=== PATIENT | female | born 1935 | race Caucasian/White ===

== ENCOUNTER 2016-07-13 07:44 | Day surgery (SDC) | payer MEDICARE, OTHER ==
[~2016-07-13] VITALS: Ht 162.6 cm; Wt 86.4 kg
[~2016-07-13 07:44] MED LIST: CALC500T19 PO; CIPR500T4 PO; CYAN100017 PO; FOLI1 PO; FOSA70TA PO; FURO40TA PO; GABA100C4 PO; HYDR-3535 PO; LEVO50TA4 PO; METH50P SQ; METO25 PO; OMEP20TA39 PO; POTA20IN3 PO; PRAV20 PO; WARF-20 PO
[2016-07-13 07:57] VITALS: BP 146/86; PULSE 86; RESP 20; TEMP 98.1; O2SAT 98
[2016-07-13] MEDS ORDERED: MECL-62 PO ×2 (08:12→08:52)
[2016-07-13] MEDS ORDERED: POTA-163 PO ×2 (08:12→08:51)
[2016-07-13] MEDS ORDERED: CENTTAB8 PO (08:12)
[2016-07-13] MEDS ORDERED: LIDOCAINE 1%/EPINEPHrine 1:100,000 SOLN 20 ML VIAL ONE (08:24)
[2016-07-13 08:47] LABS: AUTOMATED NEUTROPHIL # 10.3 TH/MM3 (1.8-7.7); BASOPHIL % 0.1 % (0.0-2.0); HEMATOCRIT 32.3 % (35.0-46.0); LYMPHOCYTE # 0.8 TH/MM3 (1.0-4.8); MEAN CORPUSCULAR HEMOGLOBIN 32.9 PG (27.0-34.0); MEAN CORPUSCULAR HGB CONC 33.6 % (32.0-36.0); MONO % 3.6 % (0.0-8.0); NEUT % 89.3 % (16.0-70.0); PLATELET COUNT 95 TH/MM3 (150-450); RED BLOOD COUNT 3.29 MIL/MM3 (4.00-5.30); RED CELL DISTRIBUTION WIDTH 15.3 % (11.6-17.2); WHITE BLOOD COUNT 11.5 TH/MM3 (4.0-11.0)
[2016-07-13 08:49] LABS: HEMO FLAGS AUTO DIFF
[2016-07-13] MEDS ORDERED: METO25TA3 PO (08:51)
[2016-07-13] MEDS ORDERED: CALC1WAF PO (08:51)
[2016-07-13] MEDS ORDERED: FURO40TA PO (08:51)
[2016-07-13] MEDS ORDERED: COUM4TAB PO (08:51)
[2016-07-13] MEDS ORDERED: OMEP20TA PO (08:51)
[2016-07-13] MEDS ORDERED: LEVO50TA4 PO (08:51)
[2016-07-13] MEDS ORDERED: FOSA70TA PO (08:51)
[2016-07-13] MEDS ORDERED: GABA100C4 PO (08:51)
[2016-07-13] MEDS ORDERED: FOLI5CAP PO (08:51)
[2016-07-13] MEDS ORDERED: CYAN100017 PO (08:51)
[2016-07-13] MEDS ORDERED: METH1INJ12 SQ (08:51)
[2016-07-13] MEDS ORDERED: PRAV20TA2 PO (08:51)
[2016-07-13] MEDS ORDERED: CIPR-9 PO (08:52)
[2016-07-13] MEDS ORDERED: HYDR-3516 PO (08:52)
[2016-07-13 08:59] LABS: INTERNATIONAL NORMALIZED RATIO 1.1 RATIO; PROTHROMBIN TIME - PATIENT 11.9 SEC (9.8-11.6)
[2016-07-13] MEDS ORDERED: SODIUM CHLORIDE 5 ML FLUSH PRN IVF (09:00)
[2016-07-13] MEDS ORDERED: SODIUM CHLOR 0.9% 1000 ML IV SCH (09:00)
[2016-07-13] MEDS ORDERED: SODIUM CHLORIDE 5 ML FLUSH BID IVF SCH (09:00)
[2016-07-13 09:05] LABS: APTT (PATIENT) 24.5 SEC (24.3-30.1)
[2016-07-13 09:21] LABS: PLATELET ESTIMATE SMEAR LOW (NORMAL); PLATELET MORPHOLOGY NORMAL (NORMAL); SCAN/DIFF AUTO DIFF CONFIRMED
[2016-07-13] MEDS ORDERED: fentaNYL CITRATE 250 MCG/5 ML AMP ONE (09:29)
[2016-07-13] MEDS ORDERED: MIDAZOLAM HCL 5 MG/5 ML VIAL ONE (09:29)
[2016-07-13 10:15] VITALS: BP 145/76; PULSE 87; RESP 18; TEMP 98.4; O2SAT 97
[2016-07-13 10:30] VITALS: BP 145/74; PULSE 86; RESP 18; O2SAT 97
[2016-07-13 10:33] LABS: BONE MARROW PROCESSING COMPLETE; IRON STAIN DONE; JENNER GIEMSA STAIN DONE
[2016-07-13] MEDS ORDERED: oxyCODONE/ACETAMINOPHEN 5 MG/325 MG TAB PO PRN (10:45)
[2016-07-13 11:00] VITALS: BP 135/68; PULSE 78; RESP 18; O2SAT 97
[2016-07-13 11:30] VITALS: BP 132/64; PULSE 75; RESP 18; O2SAT 97
--- NOTE | 2016-07-13 11:37 | RADRPT ---
EXAM DATE/TIME: 07/13/2016 09:39 [facility] COMPARISON: No previous studies available for comparison. INDICATIONS : Thrombocytopenia SEDATION TIME: 30 minutes BIOPSY SITE: Right ilium MEDICATION(S): 1.) 2.5 mg midazolam (Versed) IV 2.) 150 mcg fentanyl (Sublimaze) IV DEVICE(S): 1.) 12 gauge On-Control needle MEDICAL HISTORY : Aneurysm, abdominal. Hypertension. Chronic obstructive pulmonary disease. SURGICAL HISTORY : Appendectomy. Cholecystectomy. Hysterectomy. ENCOUNTER: Initial ACUITY: 1 day PAIN SCORE: 0/10 LOCATION: flank A total of one core specimen(s) were obtained and sent to the laboratory for pathologic evaluation. PROCEDURE: 1. CT guided bone marrow biopsy. 2. Conscious sedation with continuous EKG and oximetry monitoring. 3. EKG and oximetry remained stable throughout the procedure. Prior to the procedure informed consent was obtained. Any appropriate prior imaging studies were rev iewed. The site was prepped in a sterile fashion. Full sterile technique was used, including cap, mask, tyler rile gloves and gown and a large sterile sheet. Hand hygiene and 2% chlorhexidine and/or betadine/al cohol prep was utilized per protocol for cutaneous antisepsis. The skin and subcutaneous tissues wer e infiltrated with local anesthetic solution. With CT guidance the previously identified target was localized. Biopsy was performed using the presc ribed needle as above. Following biopsy marrow aspiration was performed with repeat puncture. Adequa te hemostasis was obtained with compression at the puncture site. Follow-up CT scan reveals no hemorrhage. Conscious sedation was performed with the prescribed dosages and duration as above. The patient sophia ated the procedure well and there were no complications. EKG and oximetry remained stable throughout the procedure. The patient was sent to Radiology Outpatient Unit in stable condition. CONCLUSION: 1. Uncomplicated CT guided bone marrow aspirate. 2. Uncomplicated CT guided bone marrow biopsy. Tiburcio Maxwell MD on July 13, 2016 at 11:36 Board Certified Radiologist. This report was verified electronically.
[2016-07-13 12:00] VITALS: BP 138/80; PULSE 68; RESP 18; O2SAT 100
== END 2016-07-13 13:59 | disposition home or self-care (01) ==
LOC: HRIP 07:44 → HRAD 07:44 → EDSTATUS 08:00 → HRAD 13:59
PROVIDERS: ATTEND Internal Medicine Hematology & Oncology
DX: D69.6 Thrombocytopenia, unspecified (principal); D64.9 Anemia, unspecified; I10 Essential (primary) hypertension; J44.9 Chronic obstructive pulmonary disease, unspecified
CPT/HCPCS: 38221; 77012; 85025; 85097; 85610; 85730; 88184; 88185; 88237; 88264; 88280; 88305; 88311; 88313; 99152; C1830; G0364; J2250; J3010

== ENCOUNTER 2016-12-04 01:27 | Inpatient (IN) | payer MEDICARE, OTHER ==
[~2016-12-04] VITALS: Ht 170.2 cm; Wt 83.4 kg
[2016-12-04] VITALS (13 sets, daily range): BP systolic 99–143; BP diastolic 50–78; PULSE 63–81; RESP 16–20; TEMP 96.9–103.1; O2SAT 94–98
[~2016-12-04 01:27] MED LIST changes: +CALC1WAF PO; +CENTTAB8 PO; +CIPR-9 PO; +COUM4TAB PO; +FOLI5CAP PO; +HYDR-3516 PO; +MECL-62 PO; +METH1INJ12 SQ; +METO25TA3 PO; +OMEP20TA PO; +POTA-163 PO; +PRAV20TA2 PO
[2016-12-04] MEDS ORDERED: SODIUM CHLOR 0.9% 1000 ML INJ 1,000 ML IV ONE (01:45)
[2016-12-04 01:57] LABS: BASOPHIL % 0.1 % (0.0-2.0); EOSINOPHIL % 0.1 % (0.0-4.0); HEMATOCRIT 37.8 % (35.0-46.0); HEMO FLAGS DIFF FINAL; LYMPH % 4.7 % (9.0-44.0); LYMPHOCYTE # 0.7 TH/MM3 (1.0-4.8); MEAN CELL VOLUME 97.4 FL (80.0-100.0); MEAN CORPUSCULAR HGB CONC 34.9 % (32.0-36.0); MONO % 6.3 % (0.0-8.0); NEUT % 88.8 % (16.0-70.0); PLATELET COUNT 109 TH/MM3 (150-450); RED BLOOD COUNT 3.88 MIL/MM3 (4.00-5.30); RED CELL DISTRIBUTION WIDTH 14.2 % (11.6-17.2); WHITE BLOOD COUNT 15.7 TH/MM3 (4.0-11.0)
[2016-12-04] MEDS ORDERED: METH0.35 (02:00)
[2016-12-04] MEDS ORDERED: FOLI400T PO (02:00)
[2016-12-04] MEDS ORDERED: [UNRECOGNIZED DRUG - CODE] SL (02:00)
[2016-12-04] MEDS ORDERED: CALC600T4 PO (02:00)
[2016-12-04] MEDS ORDERED: FLUTI220I INH (02:00)
[2016-12-04] MEDS ORDERED: ALBU0.08 NEB (02:00)
[2016-12-04 02:04] LABS: BACTERIA, URINE OCC /hpf; BLOOD, URINE LARGE (NEG); GLUCOSE,URINE NEG (NEG); KETONE, URINE NEG (NEG); MUCUS URINE FEW /lpf (OCC); NITRITE,URINE NEG (NEG); URINE COLOR YELLOW (YELLW/STRAW)
[2016-12-04 02:05] LABS: COMMENT (UR) CATH-CULTURE IND; CULTURE IF INDICATED CATH CULTURE IND
--- NOTE | 2016-12-04 02:08 | RADRPT ---
EXAM DATE/TIME: 12/04/2016 01:53 [facility] COMPARISON: No previous studies available for comparison. INDICATIONS : Chest pain. MEDICAL HISTORY : None. SURGICAL HISTORY : None. ENCOUNTER: Initial ACUITY: 1 day PAIN SCORE: 0/10 LOCATION: Bilateral chest FINDINGS: The lungs are clear without infiltrate, nodule, or mass. There is no appreciable pleural effusion fo r technique. Heart and mediastinum are unremarkable. There is evidence for prior median sternotomy. There are atherosclerotic calcifications of the aorta due to chronic atherosclerotic disease. CONCLUSION: No acute cardiopulmonary disease. Sabino Kearney MD on December 04, 2016 at 2:06 Board Certified Radiologist. This report was verified electronically.
--- NOTE | 2016-12-04 02:14 | PD ---
HPI Chief Complaint: Fever Time Seen by Provider: 01:36 Travel History International Travel<30 days: No Contact w/Intl Traveler<30days: No Traveled to known affect area: No History of Present Illness HPI Patient 81-year-old female [facility] for evaluation of fever and altered mental status. Patient on arrival is fairly confused, per EMS she had fever in route and is only been confused for the past few hours after receiving [place] tell when she went to bed tonight. Initial saturations were 92%+. Further history is fairly limited by the patient's altered mental status. PFSH Past Medical History Hx Anticoagulant Therapy: Yes AAA: Yes Anemia: Yes Arthritis: Yes Asthma: Yes Atrial Fibrillation: Yes Autoimmune Disease: No Blood Disorders: No Anxiety: No Depression: No Heart Rhythm Problems: Yes Cancer: No Cardiovascular Problems: Yes (cad, valve replacement) Chemotherapy: No Congestive Heart Failure: Yes COPD: Yes Coronary Artery Disease: Yes Diabetes: No Diminished Hearing: Yes Endocrine: No Gastrointestinal Disorders: Yes (HX OF CDIFF) GERD: Yes Genitourinary: No Hepatitis: No Hiatal Hernia: Yes Hypertension: Yes Immune Disorder: Yes Implanted Vascular Access Dvce: No Musculoskeletal: Yes Neurologic: No Psychiatric: No Reproductive: No Respiratory: Yes (copd) Immunizations Current: Yes Radiation Therapy: No Thyroid Disease: No Tetanus Vaccination: Unknown Influenza Vaccination: Yes PNEUMOCCOCAL Vaccine (Year): 2006 Menopausal: Yes : 0 Ovarian Cysts: Yes Past Surgical History Abdominal Aneurysm Repair: Yes Abdominal Surgery: Yes (AAA, cholesectomy) Appendectomy: Yes Cardiac Surgery: Yes Cholecystectomy: Yes Coronary Artery Bypass Graft: Yes (X 5) Ear Surgery: No Endocrine Surgery: No Eye Surgery: Yes (BILATERAL CATARACT ) Genitourinary Surgery: No Gynecologic Surgery: Yes (HYSTERECTOMY ) Hysterectomy: Yes Joint Replacement: Yes (L KNEE SURGERY , BACK SURGERY ) Pacemaker: No Thoracic Surgery: Yes Other Surgery: Yes (NOSE ,HYSTERCTOMY, CHOLECYSTEC APENDECTOMY) Social History Alcohol Use: Yes (OCC) Tobacco Use: No (quit 19 years) Substance Use: No Allergies-Medications (Allergen,Severity, Reaction): Coded Allergies: Norvasc (Verified Allergy, Severe, redness "i look like hamburger meat", ) Penicillin (Verified Allergy, Severe, RASH / HIVES, 12/04/16) Spironolactone (Verified Allergy, Severe, hives, 12/04/16) HIVES/ITCHING Sulfa (Verified Allergy, Severe, SWELLING, 12/04/16) Reglan (Verified Allergy, Intermediate, 12/04/16) Erythromycin (Verified Allergy, Unknown, 12/04/16) Reported Meds & Prescriptions Reported Meds & Active Scripts Active Reported Rasuvo (Methotrexate (Antirheumatic)) 20 Mg/0.4 Ml Inj Folic Acid 400 Mcg Tab 1 Mg PO DAILY Flovent Hfa 12 GM Inh (Fluticasone Propionate) 220 Mcg/Act Inh 1 Puff INH BID Use daily at the same time. B-12 Dots (Cyanocobalamin) 500 Mcg Tab 500 Mcg SL DAILY Calcium Carbonate 1,500 Mg Tab 1,500 Mg PO BID 1,500 mg calcium carbonate (600 mg elemental calcium) Albuterol Neb (Albuterol Sulfate) 2.5 Mg/3 Ml Neb 2.5 Mg NEB ONCE Meclizine (Meclizine HCl) 25 Mg Tab 25 Mg PO QID PRN Gabapentin 100 Mg Cap 100 Mg PO TID Omeprazole 20 Mg Tab 20 Mg PO DAILY Metoprolol Tartrate 25 Mg Tab 25 Mg PO BID Levothyroxine (Levothyroxine Sodium) 50 Mcg Tab 50 Mcg PO DAILY Coumadin (Warfarin) 4 Mg Tab 4 Mg PO DAILY Pravastatin 20 Mg Tab 20 Mg PO HS Furosemide 40 Mg Tab 40 Mg PO BID Fosamax (Alendronate Sodium) 70 Mg Tab 70 Mg PO Q7D Potassium Chloride ER (Potassium Chloride) 20 Meq Tab 20 Meq PO TID Review of Systems Except as stated in HPI: all other systems reviewed are Neg Physical Exam Exam Limitations: Altered Mental Status Narrative GENERAL: Well-developed well-nourished, mild to confused in obvious distress. SKIN: No rash no wound no cellulitis hot to touch. HEAD: Atraumatic. Normocephalic. EYES: Pupils equal and round. No scleral icterus. No injection or drainage. ENT: No nasal bleeding or discharge. Mucous membranes pink and moist. TMs clear bilaterally, oropharynx clear and moist. NECK: Trachea midline. No JVD. CARDIOVASCULAR: Regular rate and rhythm. No murmur appreciated. RESPIRATORY: No accessory muscle use. Clear to auscultation. Breath sounds equal bilaterally. GASTROINTESTINAL: Abdomen soft, minimally tender in the right lower quadrant. No rebound no percussive tenderness., nondistended. Hepatic and splenic margins not palpable. MUSCULOSKELETAL: No obvious deformities. No clubbing. No cyanosis. No edema. NEUROLOGICAL: Awake and alert oriented to self and place only. When asked who the president of states was she began smelling nonsensical words. No obvious cranial nerve deficits. Motor grossly within normal limits. Normal speech. PSYCHIATRIC: Unable to assess. Data Data Last Documented VS Vital Signs Date Time Temp Pulse Resp B/P Pulse Ox O2 Delivery O2 Flow Rate FiO2 12/04/16 03:28 100.9 81 16 140/78 96 Room Air Orders Electrocardiogram (12/04/16 01:36) Complete Blood Count With Diff (12/04/16:36) Comprehensive Metabolic Panel (12/04/16:36) Beta Hcg (Quant/Titer) (12/04/16:36) Prothrombin Time / Inr (Pt) (12/04/16:36) Act Partial Throm Time (Ptt) (12/04/16:36) Lactic Acid Sepsis Protocol (12/04/16:36) Magnesium (Mg) (12/04/16:36) Phosphorus (Po4) (12/04/16 01:36) Lipase (12/04/16:36) Ckmb (Isoenzyme) Profile (12/04/16:36) Troponin I (12/04/16:36) Urinalysis - C+S If Indicated (12/04/16 01:36) Ua Includes Microscopic (12/04/16 01:36) Blood Culture (12/04/16 01:36) Chest, Single Ap (12/04/16:36) Blood Glucose (12/04/16 01:36) Ecg Monitoring (12/04/16 01:36) Iv Access Insert/Monitor (12/04/16:36) Oximetry (12/04/16:36) Oxygen Administration (12/04/16:36) Ct Abd/Pel W Iv Contrast(Rout) (12/04/16 01:36) Urinary Catheter Management TERE.Q8H (12/04/16 01:36) Sodium Chlor 0.9% 1000 Ml Inj (Ns 1000 M (12/04/16 01:45) Urine Culture (12/04/16 01:50) Ct Brain W/O Iv Contrast(Rout) (12/04/16 ) Iohexol 350 Inj (Omnipaque 350 Inj) (12/04/16 02:54) Vancomycin Inj (Vancomycin Inj) (12/04/16 03:15) Piperacil-Tazo 3.375 Gm Premix (Zosyn 3. (12/04/16 03:15) Acetaminophen (Tylenol) (12/04/16 03:15) Admit Order (Ed Use Only) (12/04/16 ) Labs Laboratory Tests Test 12/04/16 12/04/16 01:45 01:50 White Blood Count 15.7 TH/MM3 Red Blood Count 3.88 MIL/MM3 Hemoglobin 13.2 GM/DL Hematocrit 37.8 % Mean Corpuscular Volume 97.4 FL Mean Corpuscular Hemoglobin 34.0 PG Mean Corpuscular Hemoglobin 34.9 % Concent Red Cell Distribution Width 14.2 % Platelet Count 109 TH/MM3 Mean Platelet Volume 8.4 FL Neutrophils (%) (Auto) 88.8 % Lymphocytes (%) (Auto) 4.7 % Monocytes (%) (Auto) 6.3 % Eosinophils (%) (Auto) 0.1 % Basophils (%) (Auto) 0.1 % Neutrophils # (Auto) 14.0 TH/MM3 Lymphocytes # (Auto) 0.7 TH/MM3 Monocytes # (Auto) 1.0 TH/MM3 Eosinophils # (Auto) 0.0 TH/MM3 Basophils # (Auto) 0.0 TH/MM3 CBC Comment DIFF FINAL Differential Comment Prothrombin Time 36.5 SEC Prothromb Time International 3.1 RATIO Ratio Activated Partial 28.5 SEC Thromboplast Time Sodium Level 134 MEQ/L Potassium Level 4.3 MEQ/L Chloride Level 93 MEQ/L Carbon Dioxide Level 35.6 MEQ/L Anion Gap 5 MEQ/L Blood Urea Nitrogen 25 MG/DL Creatinine 0.85 MG/DL Estimat Glomerular Filtration 64 ML/MIN Rate Random Glucose 94 MG/DL Lactic Acid Level 2.0 mmol/L Calcium Level 8.3 MG/DL Phosphorus Level 1.8 MG/DL Magnesium Level 1.7 MG/DL Total Bilirubin 0.4 MG/DL Aspartate Amino Transf 71 U/L (AST/SGOT) Alanine Aminotransferase 59 U/L (ALT/SGPT) Alkaline Phosphatase 153 U/L Total Creatine Kinase 70 U/L Troponin I LESS THAN 0.02 NG/ML Total Protein 7.2 GM/DL Albumin 2.9 GM/DL Lipase 190 U/L Human Chorionic Gonadotropin, LESS THAN 1 Quant MIU/ML Urine Color YELLOW Urine Turbidity HAZY Urine pH 8.0 Urine Specific Hayes 1.015 Urine Protein 30 mg/dL Urine Glucose (UA) NEG mg/dL Urine Ketones NEG mg/dL Urine Occult Blood LARGE Urine Nitrite NEG Urine Bilirubin NEG Urine Urobilinogen LESS THAN 2.0 MG/DL Urine Leukocyte Esterase NEG Urine RBC /hpf Urine WBC 5 /hpf Urine Bacteria OCC /hpf Urine Mucus FEW /lpf Microscopic Urinalysis Comment CATH-CULTURE IND MDM Medical Decision Making Medical Screen Exam Complete: Yes Emergency Medical Condition: Yes Differential Diagnosis Sepsis, pneumonia, encephalopathy, acute abdomen, UTI, head injury, bowel obstruction Narrative Course A 1-year-old female roomed in the emergency department, initial findings with the patient is febrile after taking [place]. No obvious source of fever found on physical exam. Chest x-ray is negative, UA negative, abdomen sources not been excluded CT abdomen indicated and reveals no intra-abdominal pathology but does show a right lower lobe pneumonia. The patient was then started on antibiotics. Lactic acid was normal precluding the need for aggressive fluid resuscitation. Patient was started on vancomycin and Zosyn,'s then noticed on the patient's paperwork that she has an allergy to penicillin which is a rash. She will be monitored closely for this reaction. She's not had any rash in the initial postinfusion period. Patient was discussed with Dr. Mcclendon for admission who is agreeable. She remained hemodynamically stable while in the emergency department. Cephalopathy seems to be waxing and waning. There is no history of dementia [facility] paperwork from [facility]. Diagnosis Primary Impression: Sepsis Qualified Code: A41.9 - Sepsis, due to unspecified organism Additional Impressions: Pneumonia Qualified Code: J18.1 - Pneumonia of right lower lobe due to infectious organism Encephalopathy Admitting Information Admitting Physician Requests: Admit Condition: Stable David Llanes MD Dec 04, 2016 02:14
[2016-12-04 02:15] LABS: APTT (PATIENT) 28.5 SEC (24.3-30.1); INTERNATIONAL NORMALIZED RATIO 3.1 RATIO; PROTHROMBIN TIME - PATIENT 36.5 SEC (9.8-11.6)
[2016-12-04 02:28] LABS: ALKALINE PHOSPHATASE 153 U/L (45-117); ALT (GPT) 59 U/L (10-53); ANION GAP 5 MEQ/L (5-15); AST (GOT) 71 U/L (15-37); BETA HCG QUANT LESS THAN 1 MIU/ML (0-5); BICARBONATE 35.6 MEQ/L (21.0-32.0); BLOOD UREA NITROGEN 25 MG/DL (7-18); CHLORIDE 93 MEQ/L (98-107); GLOMERULAR FILTRATION RATE 64 ML/MIN (>89); MAGNESIUM 1.7 MG/DL (1.5-2.5); SODIUM (NA) 134 MEQ/L (136-145); TOTAL BILIRUBIN ADULT 0.4 MG/DL (0.2-1.0)
[2016-12-04 02:29] LABS: CREATINE KINASE 70 U/L (26-192); POTASSIUM 4.3 MEQ/L (3.5-5.1)
[2016-12-04] MEDS ORDERED: IOHEXOL 350 MG/ML 10 ML VIAL (for RAD DIAG) IV ONE (02:54)
--- NOTE | 2016-12-04 03:00 | RADRPT ---
EXAM DATE/TIME: 12/04/2016 02:50 [facility] COMPARISON: CT BRAIN W/O CONTRAST, November 05, 2015, 16:48. INDICATIONS : Altered mental status. RADIATION DOSE: 56.35 CTDIvol (mGy) MEDICAL HISTORY : Gastroesophageal reflux disease. Cardiovascular disease Chronic obstructive pulmonary disease.CAD. Hi atal Hernia. Hypertension. SURGICAL HISTORY : Abdominal aortic aneurysm repair. Cholecystectomy.Hysterectomy.CABG. ENCOUNTER: Initial ACUITY: 1 day PAIN SCALE: 0/10 LOCATION: cranial TECHNIQUE: Multiple contiguous axial images were obtained of the head. Using automated exposure control and adj ustment of the mA and/or kV according to patient size, radiation dose was kept as low as reasonably a chievable to obtain optimal diagnostic quality images. FINDINGS: There is no evidence for intracranial hemorrhage, mass effect, mass lesions, or edema. The visualize d bony structures appear intact. Moderate degree of brain atrophy is seen. Moderate periventricular white matter changes are seen nonspecific mostly consistent with chronic small vessel ischemic change s. There are no signs of acute infarction for technique. There is fluid within the right maxillary sinus. CONCLUSION: Chronic and small vessel ischemic changes without any evidence for acute hemorrhage or mass effect an d right maxillary sinusitis. . Sabino Kearney MD on December 04, 2016 at 2:58 Board Certified Radiologist. This report was verified electronically.
--- NOTE | 2016-12-04 03:09 | RADRPT ---
EXAM DATE/TIME: 12/04/2016 02:46 [facility] COMPARISON: CT ABDOMEN & PELVIS W CONTRAST, November 16, 2015, 1:06. INDICATIONS : Fever and elevated white count. IV CONTRAST: 95 cc Omnipaque 350 (iohexol) IV ORAL CONTRAST: No oral contrast ingested. RADIATION DOSE: 10.49 CTDIvol (mGy) MEDICAL HISTORY : Gastroesophageal reflux disease. Chronic obstructive pulmonary disease. Cardiov ascular diseaseCAD. Hypertension. Hiatal hernia. SURGICAL HISTORY : Hysterectomy. Cholecystectomy.Abdominal aortic aneurysm repair.Valve replacem ent. ENCOUNTER: Initial ACUITY: 1 day PAIN SCALE: 6/10 LOCATION: abdomen TECHNIQUE: Volumetric scanning of the abdomen and pelvis was performed. Using automated exposure control and adjustment of the mA and/or kV according to patient size, radiation dose was kept as low as reasonably achievable to obtain optimal diagnostic quality images. FINDINGS: CT Abdomen: The liver, spleen, pancreas, kidneys, adrenals are unremarkable. There is no evidence for any appreciable pathological adenopathy, free fluid, or bowel obstruction. There are atheroscleroti c calcifications of the aorta due to chronic atherosclerotic disease an aortobiiliac stent is in plac e with [place] AAA not changed. There is air space consolidation right lower lobe not present previous ly. CT pelvis: There is no evidence for mass, abscess formation, or any significant adenopathy within the pelvis. There are scattered diverticuli mainly in the sigmoid colon without definite signs of divert iculitis. CONCLUSION: Right lower lobe pneumonia not present previously. Sabino Kearney MD on December 04, 2016 at 3:04 Board Certified Radiologist. This report was verified electronically.
[2016-12-04] MEDS ORDERED: VANCOMYCIN INJ 1,000 MG in SODIUM CHLOR 0.9% 250 ML INJ 250 ML IV ONE (03:15)
[2016-12-04] MEDS ORDERED: ACETAMINOPHEN 325 MG TAB PO ONE (03:15)
[2016-12-04] MEDS ORDERED: PIPERACIL-TAZO 3.375 GM PREMIX 50 ML IV ONE (03:15)
[2016-12-04] MEDS ORDERED: ACETAMINOPHEN 325 MG TAB PO PRN (03:45)
[2016-12-04] MEDS ORDERED: LACTULOSE SYRUP 20 GM/30 ML CUP PO PRN (03:45)
[2016-12-04] MEDS ORDERED: Vancomycin Consult Pharmacy 1 EA OTHER SCH (03:45)
[2016-12-04] MEDS ORDERED: VANCOMYCIN INJ 1,000 MG in SODIUM CHLOR 0.9% 250 ML INJ 250 ML IV SCH (03:45)
[2016-12-04] MEDS ORDERED: SENNOSIDES 8.6 MG TAB PO PRN (03:45)
[2016-12-04] MEDS ORDERED: SODIUM CHLORIDE 0.9% FLUSH 10 ML FLUSH IV FLUSH PRN (03:45)
[2016-12-04] MEDS ORDERED: RESP: ALBUTEROL 2.5 MG/3 ML NEB (SCH) NEB (03:45)
[2016-12-04] MEDS ORDERED: MECLIZINE HCL 25 MG TAB PO PRN (03:45)
[2016-12-04] MEDS ORDERED: ALENDRONATE SODIUM 70 MG TAB PO SCH (03:45)
[2016-12-04] MEDS ORDERED: MAGNESIUM HYDROXIDE SUSP 30 ML CUP PO PRN (03:45)
[2016-12-04] MEDS ORDERED: BISACODYL 10 MG SUPP RECTAL PRN (03:45)
[2016-12-04] MEDS ORDERED: ONDANSETRON HCL 4 MG/2 ML VIAL IVP PRN (03:45)
--- NOTE | 2016-12-04 03:45 | HHI.HP ---
HPI Service [facility] Primary Care Physician No Primary Care Physician Admission Diagnosis Sepsis, PNA Diagnoses: Chief Complaint: brought from SNF due to fever and AMS Travel History International Travel<30 Days: No Contact w/Intl Traveler <30 Da: No Traveled to Known Affected Are: No Sepsis Criteria SIRS Criteria (2 or more): Temp > 100.9 or < 96.8, WBC > 04353, < 4000 or > 10 % bands Sepsis Criteria (SIRS+source): Infect source susp/known History of Present Illness Written by Janessa Tamez, acting as scribe for Dr. Aguirre on 12/04/16 at 03 :58. This note was transcribed by scribRich HIGGINS. I, Dr. Jenn Aguirre personally performed the history, physical exam, and medical decision making; and confirmed the accuracy of the information in the transcribed note. Authenticated by Dr. Jenn Aguirre on 12/04/16 at 03:58. This is an 81 year old female patient with a past medical history which includes encephalopathy, carpal tunnel syndrome, thrombocytopenia, A. fib on Coumadin with INR 3.1, asthma, coronary artery disease, CHF, aortic stenosis s/ p bovine value replacement, AAA s/p repair, CAD s/p CABG, C. diff, hypertension , hypothyroidism, rheumatoid arthritis, chronic pain syndrome and peripheral neuropathy. Patient present to the ER from a SNF for evaluation of fever and altered mental status. Patient on arrival is confused and unable to provide meaningful information. Patient evaluated with daughter in the room. Information gathered form patient, daughter and prior computerized chart. Patient only complaint at this time is feeling tired. Patient reports that she had been so fatigued at longterm facility if she was unable to get out of bed. Patient's daughter reports patient has not been herself for about a week and has had a, "mucous sounding," nonproductive cough for the past week. Patient also had nausea earlier in the week, but no vomiting Patient denies chest pain, SOB, vomiting, fevers chills diarrhea or constipation. Vital signs upon arrival include temp 103.1, HR 75, RR 18, BP 143/68, pulse oximetry on RA 98% Review of Systems ROS Limitations: Clinical Condition, Poor Historian Past Family Social History Past Medical History Gathered from review of prior medical records as patient is unable to provide encephalopathy, carpal tunnel syndrome, thrombocytopenia, A. fib on Coumadin with INR 3.1, asthma, coronary artery disease, CHF, aortic stenosis s/p bovine value replacement, AAA s/p repair, CAD s/p CABG, C. diff, hypertension, hypothyroidism, rheumatoid arthritis, chronic pain syndrome and peripheral neuropathy Past Surgical History Gathered from review of prior medical records as patient is unable to provide 1. Bovine Aortic valve replacement 2. Spinal fusion 3. CABG Reported Medications Rasuvo (Methotrexate (Antirheumatic)) 20 Mg/0.4 Ml Inj Folic Acid 400 Mcg Tab 1 Mg PO DAILY Flovent Hfa 12 GM Inh (Fluticasone Propionate) 220 Mcg/Act Inh 1 Puff INH BID Use daily at the same time. B-12 Dots (Cyanocobalamin) 500 Mcg Tab 500 Mcg SL DAILY Calcium Carbonate 1,500 Mg Tab 1,500 Mg PO BID 1,500 mg calcium carbonate (600 mg elemental calcium) Albuterol Neb (Albuterol Sulfate) 2.5 Mg/3 Ml Neb 2.5 Mg NEB ONCE Meclizine (Meclizine HCl) 25 Mg Tab 25 Mg PO QID PRN Gabapentin 100 Mg Cap 100 Mg PO TID Omeprazole 20 Mg Tab 20 Mg PO DAILY Metoprolol Tartrate 25 Mg Tab 25 Mg PO BID Levothyroxine (Levothyroxine Sodium) 50 Mcg Tab 50 Mcg PO DAILY Coumadin (Warfarin) 4 Mg Tab 4 Mg PO DAILY Pravastatin 20 Mg Tab 20 Mg PO HS Furosemide 40 Mg Tab 40 Mg PO BID Fosamax (Alendronate Sodium) 70 Mg Tab 70 Mg PO Q7D Potassium Chloride ER (Potassium Chloride) 20 Meq Tab 20 Meq PO TID Allergies: Coded Allergies: Norvasc (Verified Allergy, Severe, redness "i look like hamburger meat", ) Penicillin (Verified Allergy, Severe, RASH / HIVES, 12/04/16) Spironolactone (Verified Allergy, Severe, hives, 12/04/16) HIVES/ITCHING Sulfa (Verified Allergy, Severe, SWELLING, 12/04/16) Reglan (Verified Allergy, Intermediate, 12/04/16) Erythromycin (Verified Allergy, Unknown, 12/04/16) Active Ordered Medications Current Medications Medications (Trade) Dose Ordered Sig/Jair Route Start Time Stop Time Status Last Admin Vancomycin HCl 1000 mg/Sodium Chloride 250 ml @ 250 mls/hr ONCE ONCE IV 12/04/16 03:15 12/04/16 04:14 12/04/16 03:26 Piperacillin Sod/ Tazobactam Sod 50 ml @ 100 mls/hr ONCE ONCE IV 12/04/16 03:15 12/04/16 03:44 12/04/16 03:26 (NS 1000 ml Inj) 1,000 ml @ 100 mls/hr Q10H IV 12/04/16 03:32 (NS Flush) 2 ml UNSCH PRN IV FLUSH 12/04/16 03:45 UNV (NS Flush) 2 ml BID IV FLUSH 12/04/16 09:00 UNV (Tylenol) 650 mg Q4H PRN PO 12/04/16 03:45 UNV (Zofran Inj) 4 mg Q6H PRN IVP 12/04/16 03:45 UNV (Lovenox Inj) 40 mg Q24H SQ 12/04/16 03:45 UNV (Jess-Colace) 1 tab BID PO 12/04/16 09:00 UNV (Milk Of Magnesia Liq) 30 ml Q12H PRN PO 12/04/16 03:45 UNV (Senokot) 17.2 mg Q12H PRN PO 12/04/16 03:45 UNV (Dulcolax Supp) 10 mg DAILY PRN RECTAL 12/04/16 03:45 Lactulose 30 ml 30 ml DAILY PRN PO 12/04/16 03:45 Piperacillin Sod/ Tazobactam Sod 100 ml @ 200 mls/hr Q6H IV 12/04/16 03:45 UNV Pharmacy Profile Note 0 ml @ 0 mls/hr UNSCH OTHER 12/04/16 03:45 UNV (Vancomycin Inj/ NS 250 ml Inj) 250 ml @ 250 mls/hr Q12H IV 12/04/16 03:45 UNV Family History unable to obtain due to patient current mental status and not available from prior charting Social History Lives in an No report of ETOH use, tobacco use or illicit drug use Physical Exam Vital Signs Vital Signs Date Time Temp Pulse Resp B/P Pulse Ox O2 Delivery O2 Flow Rate FiO2 12/04/16 03:28 100.9 81 16 140/78 96 Room Air 12/04/16 01:48 16 96 Room Air 12/04/16 01:48 96 Room Air 12/04/16 01:33 16 96 Room Air 12/04/16 01:30 103.1 75 18 143/68 98 Physical Exam GENERAL: This is a well-nourished, well-developed elderly 81 year old female patient, confused SKIN: No rashes, ecchymoses or lesions. Cool and dry. general thinning of skin HEAD: Atraumatic. Normocephalic. No temporal or scalp tenderness. ENT: Oral mucosa with white patches present lower mucosa EYES: Extraocular motions intact. No scleral icterus. No injection or drainage. CARDIOVASCULAR: Regular rate and rhythm with murmur present RESPIRATORY: decreased breath sounds with scattered rales, rhonchi and expiratory wheezing through out GASTROINTESTINAL: Abdomen soft, non-tender, nondistended. No hepato-splenomegaly , or palpable masses. No guarding. MUSCULOSKELETAL: RLE 2+ pitting edema with calf tenderness, LLE 1+ pitting edema without tenderness NEUROLOGICAL: Awake and alert. confused. Motor and sensory grossly within normal limits. 4 out of 5 muscle strength in all muscle groups. Normal speech. Laboratory Laboratory Tests Test 12/04/16 12/04/16 01:45 01:50 White Blood Count 15.7 Red Blood Count 3.88 Hemoglobin 13.2 Hematocrit 37.8 Mean Corpuscular Volume 97.4 Mean Corpuscular Hemoglobin 34.0 Mean Corpuscular Hemoglobin 34.9 Concent Red Cell Distribution Width 14.2 Platelet Count 109 Mean Platelet Volume 8.4 Neutrophils (%) (Auto) 88.8 Lymphocytes (%) (Auto) 4.7 Monocytes (%) (Auto) 6.3 Eosinophils (%) (Auto) 0.1 Basophils (%) (Auto) 0.1 Neutrophils # (Auto) 14.0 Lymphocytes # (Auto) 0.7 Monocytes # (Auto) 1.0 Eosinophils # (Auto) 0.0 Basophils # (Auto) 0.0 CBC Comment DIFF FINAL Differential Comment Prothrombin Time 36.5 Prothromb Time International 3.1 Ratio Activated Partial 28.5 Thromboplast Time Sodium Level 134 Potassium Level 4.3 Chloride Level 93 Carbon Dioxide Level 35.6 Anion Gap 5 Blood Urea Nitrogen 25 Creatinine 0.85 Estimat Glomerular Filtration 64 Rate Random Glucose 94 Lactic Acid Level 2.0 Calcium Level 8.3 Phosphorus Level 1.8 Magnesium Level 1.7 Total Bilirubin 0.4 Aspartate Amino Transf 71 (AST/SGOT) Alanine Aminotransferase 59 (ALT/SGPT) Alkaline Phosphatase 153 Total Creatine Kinase 70 Troponin I LESS THAN 0.02 Total Protein 7.2 Albumin 2.9 Lipase 190 Human Chorionic Gonadotropin, LESS THAN 1 Quant Urine Color YELLOW Urine Turbidity HAZY Urine pH 8.0 Urine Specific [place] 1.015 Urine Protein 30 Urine Glucose (UA) NEG Urine Ketones NEG Urine Occult Blood LARGE Urine Nitrite NEG Urine Bilirubin NEG Urine Urobilinogen LESS THAN 2.0 Urine Leukocyte Esterase NEG Urine RBC Urine WBC 5 Urine Bacteria OCC Urine Mucus FEW Microscopic Urinalysis Comment CATH-CULTURE IND Date/Time Procedure Status Source Growth 12/04/16 01:50 Urine Culture Received Urine Catheterized Urine Pending 12/04/16 01:45 Aerobic Blood Culture Received Blood Peripheral Pending 12/04/16 01:45 Anaerobic Blood Culture Received Blood Peripheral Pending Result Diagram: 12/04/16 0145 12/04/16 0145 Imaging Last Impressions Chest X-Ray 12/04/16135 Signed Impressions: Service Date/Time: Sunday, December 04, 2016 01:53 - CONCLUSION: No acute cardiopulmonary disease. Sabino Kearney MD Abdomen/Pelvis CT 12/04/16135 Signed Impressions: Service Date/Time: Sunday, December 04, 2016 02:46 - CONCLUSION: Right lower lobe pneumonia not present previously. Sabino Kearney MD Head CT 12/04/16 0000 Signed Impressions: Service Date/Time: Sunday, December 04, 2016 02:50 - CONCLUSION: Chronic and small vessel ischemic changes without any evidence for acute hemorrhage or mass effect and right maxillary sinusitis. . Sabino Kearney MD Septic Shock Reassessment Heart: Murmur Lungs: Course, Diminished Skin: Warm, Dry Peripheral Pulses: Weak Right Dorsalis Pedis Weak Left Dorsalis Pedis Bounding Right Radial Bounding Left Radial Capillary Refill: <2 seconds Assessment and Plan Problem List: (1) Sepsis ICD Code: A41.9 Status: Acute (2) Pneumonia ICD Code: J18.9 Status: Acute (3) Encephalopathy ICD Code: G93.40 Status: Acute Assessment and Plan This is an 81 year old female patient with a past medical history which includes encephalopathy, carpal tunnel syndrome, thrombocytopenia, A. fib on Coumadin with INR 3.1, asthma, coronary artery disease, CHF, aortic stenosis s/ p value replacement, C. diff, hypertension, hypothyroidism, rheumatoid arthritis , chronic pain syndrome and peripheral neuropathy. Patient present to the ER from a SNF for evaluation of fever and altered mental status. Patient on arrival is confused and unable to provide meaningful information. Vital signs upon arrival include temp 103.1, HR 75, RR 18, BP 143/68, pulse oximetry on RA 98% AMS secondary to metabolic encephalopathy Sepsis on arrival (temp 103.1, WBC 15.7 source Healthcare associated PNA) Possible UTI- UA with protein high, large amount occult blood present, negative leukocyte esterase, urine bacteria present, culture pending Zosyn and Vancomycin given in ER Continue Zosyn and Vancomycin with pharmacy to dose s/p IV bolus in ER NS at 100ml/H Abdomen/pelvis CT reviewed by me and revealed Right lower lobe pneumonia not present previously blood cultures obtained and pending A Fib- rate controlled Continue Coumadin with pharmacy consult continue home medication metoprolol for rate control History of C- diff now on abx Lactobacillus BID watch for loose stools/diarrhea ulceration of oral mucosa Magic mouth wash RLE edema >L with calf pain US to r/o DVT pending Other chronic stable medical conditions include peripheral neuropathy, hyperlipidemia, CHF and hypothyroidism continue home medications as indicated DVT prophylaxis patient is on Coumadin with a therapeutic INR Discussed with ER MD, nursing and patient Physician Certification 2 Midnight Certification Type: Admission for Inpatient Services Order for Inpatient Services The services are ordered in accordance with Medicare regulations or non- Medicare payer requirements, as applicable. In the case of services not specified as inpatient-only, they are appropriately provided as inpatient services in accordance with the 2-midnight benchmark. Estimated LOS (days): 3 days is the estimated time the patient will need to remain in the hospital, assuming treatment plan goals are met and no additional complications. Post-Hospital Plan: SNF Problem Qualifiers (1) Sepsis: Qualified Code: A41.9 - Sepsis, due to unspecified organism (2) Pneumonia: Qualified Code: J18.1 - Pneumonia of right lower lobe due to infectious organism Janessa Tamez Dec 04, 2016 03:45 Jenn Aguirre MD Dec 04, 2016 09:37
[2016-12-04] MEDS ORDERED: ENOXAPARIN SODIUM 40 MG/0.4 ML SYRINGE SQ SCH (04:00)
[2016-12-04] MEDS: SODIUM CHLOR 0.9% 1000 ML INJ 1,000 ML IV SCH ×3 (04:03→23:59)
[2016-12-04] MEDS ORDERED: RESP: ALBUTEROL 2.5 MG/IPRATROPIUM 0.5 MG NEB (PRN) NEB (06:00)
[2016-12-04] MEDS: LEVOTHYROXINE SODIUM 50 MCG TAB PO SCH (06:12)
[2016-12-04] MEDS: METOPROLOL TARTRATE 25 MG TAB PO SCH ×2 (08:07→22:49)
[2016-12-04] MEDS: FLUTICASONE PROPIONATE 220 MCG/ACT 12 GM INHALER INH SCH ×2 (08:09→22:50)
[2016-12-04] MEDS: POTASSIUM CHLORIDE 20 MEQ CONTROLLED RELEASE TAB PO SCH ×3 (08:10→17:17)
[2016-12-04] MEDS: LACTOBACILLUS ACIDOPHILUS TAB PO SCH ×2 (08:10→22:48)
[2016-12-04] MEDS: PANTOPRAZOLE SOD 20 MG DELAYED RELEASE TAB PO SCH (08:10)
[2016-12-04] MEDS: GABAPENTIN 100 MG CAP PO SCH ×3 (08:10→17:17)
[2016-12-04] MEDS: FUROSEMIDE 40 MG TAB PO SCH ×2 (08:11→22:48)
[2016-12-04] MEDS: FOLIC ACID 1 MG TAB PO SCH (08:11)
[2016-12-04] MEDS: DOCUSATE SODIUM 50 MG/SENNA 8.6 MG TAB PO SCH ×2 (08:12→22:48)
[2016-12-04] MEDS: SODIUM CHLORIDE 0.9% FLUSH 10 ML FLUSH IV FLUSH SCH ×2 (08:13→22:47)
[2016-12-04] MEDS: CYANOCOBALAMIN 100 MCG TAB PO SCH (08:17)
[2016-12-04] MEDS: RESP: ALBUTEROL 2.5 MG/IPRATROPIUM 0.5 MG NEB (SCH) NEB ×4 (08:19→19:13)
[2016-12-04] MEDS: oxyCODONE/ACETAMINOPHEN 5 MG/325 MG TAB PO PRN (08:40)
--- NOTE | 2016-12-04 10:14 | RADRPT ---
EXAM DATE/TIME: 12/04/2016 08:24 [facility] COMPARISON: CT ABDOMEN & PELVIS W CONTRAST, December 04, 2016, 2:46. EXTERNAL COMPARISON : [facility], US LEG, BILATERAL VENOUS DOPPLER, July 11, 2012 INDICATIONS : Bilateral leg edema and pain. MEDICAL HISTORY : Aneurysm, abdominal. Congestive heart failure. Hernia, hiatal. Degenerative disc disease. Afib. CAD. Valvular heart disease. HTN. COPD. Asthma. GERD. Ovarian cysts. Rheumatoid arthritis. Pinched back n erve. Anemia. Thrombocytopenia. Cdiff. SURGICAL HISTORY : Abdominal aortic aneurysm repair.Cholecystectomy. Coronary artery stent.Cataract extraction. Heart va lve replaced. CABG. Hysterectomy. Left knee surgery. Back surgery. ENCOUNTER: Initial ACUITY: 3 days PAIN SCORE: 10/10 LOCATION: Bilateral leg. TECHNIQUE: Venous ultrasound of the left and right leg was performed from the inguinal ligament to the proximal calf. Real-time, color Doppler and spectral tracing, compression and augmentation techniques were us ed. FINDINGS: RIGHT LEG: There is normal compressibility of the deep venous system from the inguinal region to the proximal ca lf. No echogenic clot is seen in the lumen of the common femoral, femoral, popliteal, and posterior tibial veins. There is a normal response of the venous system to proximal and distal augmentation an d respiration. LEFT LEG: There is normal compressibility of the deep venous system from the inguinal region to the proximal ca lf. No echogenic clot is seen in the lumen of the common femoral, femoral, popliteal, and posterior tibial veins. There is a normal response of the venous system to proximal and distal augmentation an d respiration. CONCLUSION: There generalized edema. There is no deep venous thrombosis. Manuelito Tolentino MD FACR on December 04, 2016 at 10:10 Board Certified Radiologist. This report was verified electronically.
--- NOTE | 2016-12-04 11:45 | EKG ---
Date Performed: 12/04/2016 Time Performed: 01:40:42 PTAGE: 81 years EKG: ATRIAL FIBRILLATION Since previous tracing, no significant change noted ABNORMAL RHYTHM ECG PREVIOUS TRACING : 11/15/2015 22.15 DOCTOR: John Ramirez Interpretating Date/Time 12/04/2016 11:44:02
[2016-12-04] MEDS: PIPERACIL-TAZO 4.5 GM PREMIX 100 ML IV SCH ×3 (11:52→22:47)
[2016-12-04] MEDS ORDERED: WARFARIN SOD 4 MG TAB PO SCH (16:00)
[2016-12-04] MEDS: PRAVASTATIN SOD 20 MG TAB PO SCH (22:47)
[2016-12-04] MEDS ORDERED: VANCOMYCIN INJ 1,250 MG in SODIUM CHLOR 0.9% 250 ML INJ 250 ML IV SCH (23:00)
[2016-12-05] VITALS (7 sets, daily range): BP systolic 117–144; BP diastolic 57–76; PULSE 72–84; RESP 16–18; TEMP 96.8–99.9; O2SAT 93–96
[2016-12-05] MEDS: RESP: ALBUTEROL 2.5 MG/IPRATROPIUM 0.5 MG NEB (SCH) NEB ×6 (03:26→19:01)
[2016-12-05] MEDS: PIPERACIL-TAZO 4.5 GM PREMIX 100 ML IV SCH ×2 (04:32→11:43)
[2016-12-05 05:06] LABS: AUTOMATED NEUTROPHIL # 5.7 TH/MM3 (1.8-7.7); BASOPHIL # 0.1 TH/MM3 (0-0.2); BASOPHIL % 1.1 % (0.0-2.0); EOSINOPHIL % 0.4 % (0.0-4.0); HEMATOCRIT 36.6 % (35.0-46.0); HEMO FLAGS DIFF FINAL; LYMPH % 15.9 % (9.0-44.0); LYMPHOCYTE # 1.3 TH/MM3 (1.0-4.8); MEAN CELL VOLUME 98.9 FL (80.0-100.0); MEAN CORPUSCULAR HEMOGLOBIN 32.7 PG (27.0-34.0); MEAN CORPUSCULAR HGB CONC 33.1 % (32.0-36.0); MONO % 10.9 % (0.0-8.0); NEUT % 71.7 % (16.0-70.0); PLATELET COUNT 115 TH/MM3 (150-450); RED CELL DISTRIBUTION WIDTH 14.4 % (11.6-17.2); WHITE BLOOD COUNT 7.9 TH/MM3 (4.0-11.0)
[2016-12-05 05:19] LABS: INTERNATIONAL NORMALIZED RATIO 3.5 RATIO
[2016-12-05 05:30] LABS: BICARBONATE 29.4 MEQ/L (21.0-32.0); CALCIUM-PROTEIN CORRECTED 7.7 MG/DL (8.5-10.1); TOTAL BILIRUBIN ADULT 0.7 MG/DL (0.2-1.0)
[2016-12-05 05:36] LABS: POTASSIUM 2.9 MEQ/L (3.5-5.1)
[2016-12-05] MEDS: LEVOTHYROXINE SODIUM 50 MCG TAB PO SCH (06:23)
[2016-12-05] MEDS: POTASSIUM CHLOR 20 MEQ PREMIX 100 ML IV SCH ×2 (06:23→08:30)
[2016-12-05] MEDS: FUROSEMIDE 40 MG TAB PO SCH ×3 (10:08→21:34)
[2016-12-05] MEDS: LACTOBACILLUS ACIDOPHILUS TAB PO SCH ×2 (10:08→21:33)
[2016-12-05] MEDS: POTASSIUM CHLORIDE 20 MEQ CONTROLLED RELEASE TAB PO SCH ×3 (10:08→16:52)
[2016-12-05] MEDS: METOPROLOL TARTRATE 25 MG TAB PO SCH ×2 (10:08→21:38)
[2016-12-05] MEDS: GABAPENTIN 100 MG CAP PO SCH ×3 (10:09→16:52)
[2016-12-05] MEDS: DOCUSATE SODIUM 50 MG/SENNA 8.6 MG TAB PO SCH ×2 (10:09→21:00)
[2016-12-05] MEDS: CYANOCOBALAMIN 100 MCG TAB PO SCH (10:09)
[2016-12-05] MEDS: FOLIC ACID 1 MG TAB PO SCH (10:09)
[2016-12-05] MEDS: FLUTICASONE PROPIONATE 220 MCG/ACT 12 GM INHALER INH SCH ×2 (10:09→21:32)
[2016-12-05] MEDS: PANTOPRAZOLE SOD 20 MG DELAYED RELEASE TAB PO SCH (10:09)
[2016-12-05] MEDS: SODIUM CHLORIDE 0.9% FLUSH 10 ML FLUSH IV FLUSH SCH ×2 (10:10→21:00)
[2016-12-05] MEDS ORDERED: POTASSIUM CHLORIDE 20 MEQ CONTROLLED RELEASE TAB PO ONE (10:15)
[2016-12-05] MEDS: oxyCODONE/ACETAMINOPHEN 5 MG/325 MG TAB PO PRN ×2 (10:24→21:33)
--- NOTE | 2016-12-05 10:59 | HHI.FPPN ---
Subjective Remarks "i feel better" daughter at bedside and very angry, accusatory d/w RN Objective Vitals Vital Signs Date Time Temp Pulse Resp B/P Pulse Ox O2 Delivery O2 Flow Rate FiO2 12/05/16 08:00 98.3 83 16 141/76 96 12/05/16 07:22 96 21 12/05/16 00:00 96.8 77 18 117/57 93 12/04/16 20:00 99.1 78 19 119/63 98 12/04/16 19:14 96 21 12/04/16 15:52 98.3 68 17 111/53 95 12/04/16 12:00 97.4 63 20 117/57 95 I/O 12/04/16 12/04/16 12/04/16 12/05/16 12/05/16 12/05/16 07:00 15:00 23:00 07:00 15:00 23:00 Intake Total 209 ml 1579 ml 1182 ml 845 ml Output Total 300 ml 1200 ml 750 ml 2000 ml Balance -91 ml 379 ml 432 ml -1155 ml Intake Oral 60 ml 720 ml 360 ml 120 ml IV Total 149 ml 859 ml 822 ml 725 ml Output Urine Total 300 ml 1200 ml 750 ml 2000 ml # Voids 1 # Bowel Movements 0 0 0 4 Result Diagram: 12/05/1640912/05/16409 Objective Remarks GENERAL: SKIN: Warm and dry. HEAD: Atraumatic. Normocephalic. EYES: Pupils equal and round. No scleral icterus. No injection or drainage. ENT: No nasal bleeding or discharge. Mucous membranes pink and moist. NECK: Trachea midline. No JVD. CARDIOVASCULAR: Regular rate and rhythm. RESPIRATORY: No accessory muscle use. patchy ronchi, crackle at right base. Breath sounds equal bilaterally. GASTROINTESTINAL: Abdomen soft, non-tender, nondistended. Hepatic and splenic margins not palpable. MUSCULOSKELETAL: Extremities without clubbing, cyanosis, or edema. No obvious deformities. NEUROLOGICAL: Awake and alert. No obvious cranial nerve deficits. Motor grossly within normal limits. 1 out of 5 muscle strength in the arms and legs. Normal speech. PSYCHIATRIC: Appropriate mood and affect; insight and judgment normal. Medications and IVs Current Medications Medications (Trade) Dose Ordered Sig/Jair Route Start Time Stop Time Status Last Admin (NS 1000 ml Inj) 1,000 ml @ 100 mls/hr Q10H IV 12/04/16 03:32 12/04/16 23:59 (NS Flush) 2 ml UNSCH PRN IV FLUSH 12/04/16 03:45 (NS Flush) 2 ml BID IV FLUSH 12/04/16 09:00 12/05/16 10:10 (Tylenol) 650 mg Q4H PRN PO 12/04/16 03:45 (Zofran Inj) 4 mg Q6H PRN IVP 12/04/16 03:45 (Jess-Colace) 1 tab BID PO 12/04/16 09:00 12/05/16 10:09 (Milk Of Magnesia Liq) 30 ml Q12H PRN PO 12/04/16 03:45 (Senokot) 17.2 mg Q12H PRN PO 12/04/16 03:45 (Dulcolax Supp) 10 mg DAILY PRN RECTAL 12/04/16 03:45 Lactulose 30 ml 30 ml DAILY PRN PO 12/04/16 03:45 12/04/16 17:20 Piperacillin Sod/ Tazobactam Sod 100 ml @ 200 mls/hr Q6H IV 12/04/16 10:00 12/05/16 04:32 (Vancomycin Consult Pharmacy) 0 ml @ 0 mls/hr UNSCH OTHER 12/04/16 03:45 (Vitamin B12) 500 mcg DAILY PO 12/04/16 09:00 12/05/16 10:09 (Flovent Hfa 220 Mcg Inh) 1 puff BID INH 12/04/16 09:00 12/05/16 10:09 (Folate) 1 mg DAILY PO 12/04/16 09:00 12/05/16 10:09 (Lasix) 40 mg BID PO 12/04/16 09:00 12/05/16 10:08 (Neurontin) 100 mg TID PO 12/04/16 09:00 12/05/16 10:09 (Synthroid) 50 mcg DAILY@07 PO 12/04/16 07:00 12/05/16 06:23 (Antivert) 25 mg QID PRN PO 12/04/16 03:45 (Lopressor) 25 mg BID PO 12/04/16 09:00 12/05/16 10:08 (KCl) 20 meq TID PO 12/04/16 09:00 12/05/16 10:08 (Pravachol) 20 mg HS PO 12/04/16 21:00 12/04/16 22:47 (Coumadin) 4 mg DAILY@16 PO 12/04/16 16:00 (Protonix) 20 mg DAILY PO 12/04/16 09:00 12/05/16 10:09 (Magic Mouthwash Adult Liq) 10 ml QID SWISH-SWAL 12/05/16 11:00 (Lactinex) 1 tab Q12HR PO 12/04/16 09:00 12/05/16 10:08 Oxycodone/ Acetaminophen 1 tab 1 tab Q8HR PRN PO 12/04/16 08:15 12/05/16 10:24 (Vancomycin Inj/ NS 250 ml Inj) 262.5 ml @ 262.5 mls/ hr Q24H IV 12/04/16 23:00 12/04/16 23:58 Miscellaneous Information SPECIFIC LAB TO BE KENA... ONCE ONCE .XX 12/06/16 22:45 12/06/16 22:46 A/P Assessment and Plan AMS secondary to metabolic encephalopathy Sepsis on arrival (temp 103.1, WBC 15.7 source Healthcare associated PNA) Possible UTI- UA with protein high, large amount occult blood present, negative leukocyte esterase, urine bacteria present, culture pending Zosyn and Vancomycin given in ER Continue Zosyn and Vancomycin with pharmacy to dose. ivf blood cultures obtained and pending hypokalemia: replace K A Fib- rate controlled Continue Coumadin with pharmacy consult continue home medication metoprolol for rate control History of C- diff now on abx Lactobacillus BID watch for loose stools/diarrhea ulceration of oral mucosa Magic mouth wash RLE edema >L with calf pain US to r/o DVT - Other chronic stable medical conditions include peripheral neuropathy, hyperlipidemia, CHF and hypothyroidism continue home medications as indicated DVT prophylaxis patient is on Coumadin with a therapeutic INR Problem List: (1) Pneumonia Status: Acute (2) Sepsis Status: Acute (3) Encephalopathy Status: Acute (4) History of Clostridium difficile colitis Status: Chronic (5) Physical deconditioning Status: Chronic (6) UTI (lower urinary tract infection) Status: Acute (7) GERD (gastroesophageal reflux disease) Status: Chronic (8) CHF (congestive heart failure) Status: Chronic (9) Atrial fibrillation Status: Chronic (10) COPD (chronic obstructive pulmonary disease) Status: Chronic (11) Rheumatoid arthritis Status: Chronic (12) Hypertension Status: Chronic (13) Aortic aneurysm Status: Resolved (14) Lumbar spondylosis Status: Acute (15) Obesity Status: Acute (16) Hyperlipidemia Status: Chronic (17) Osteoarthritis Status: Chronic Problem Qualifiers (1) Pneumonia: Qualified Code: J18.1 - Pneumonia of right lower lobe due to infectious organism (2) Sepsis: Qualified Code: A41.9 - Sepsis, due to unspecified organism Arpit Archer MD Dec 05, 2016 10:59
[2016-12-05] MEDS: SODIUM CHLOR 0.9% 1000 ML INJ 1,000 ML IV SCH ×2 (11:43→19:32)
[2016-12-05] MEDS: NYSTAT/DIPHENHY/LIDO MOUTHWASH (Adult) 120ML SWISH-SWAL SCH ×2 (11:43→13:00)
--- NOTE | 2016-12-05 13:36 | PD.CONS ---
History of Present Illness Service Infectious disease Consult Requested By Dr Alon Archer Reason for Consult Evaluate patient with fever, pneumonia, history of C. difficile Primary Care Physician No Primary Care Physician Diagnoses: History of Present Illness Patient seen and examined. Records reviewed. Patient is an 81-year-old female, came [facility], brought into the hospital for evaluation of fever and confusion. She had a temperature of 103, and her WBC was elevated. Patient since admission has had improvement in her mental status. He stated that she's been having cough but really could not tell me how long it's been present. She is to bring up some yellowish phlegm, and that has improved. She denies any swallowing difficulty, sore throat, or any nausea or vomiting. Patient apparently has been constipated in the prison, and she was given multiple medications to make her have a bowel movement. Last night she had 3 bowel movements, and today she has had one. She denies any abdominal pain. Patient denies any dysuria, and she has occasional stress incontinence. Her temperature in the ED was 103. She's been afebrile. Her mental status according to the family is almost close to baseline. She still has a very moist cough. Her urinalysis is unremarkable. She had a CT of the abdomen and pelvis which did not show any intra-abdominal pathology, but it did show a right base infiltrate. Infectious disease consultation has been requested to evaluate the patient, with possible sepsis, fever, pneumonia.. Review of Systems Constitutional: COMPLAINS OF: Fever, Chills, DENIES: Change in appetite Eyes: DENIES: Eye pain Ears, nose, mouth, throat: DENIES: Nasal discharge, Oral lesions, Throat pain, Ear Pain, Running Nose Respiratory: COMPLAINS OF: Cough, Sputum production, DENIES: Hemoptysis, Shortness of breath Cardiovascular: DENIES: Chest pain, Palpitations, Syncope Gastrointestinal: COMPLAINS OF: Constipation, DENIES: Abdominal pain, Nausea, Vomiting, Difficulty Swallowing Genitourinary: COMPLAINS OF: Urinary incontinence, DENIES: Dysuria Musculoskeletal: COMPLAINS OF: Stiffness Integumentary: DENIES: Rash Neurologic: DENIES: Headache Psychiatric: COMPLAINS OF: Confusion Past Family Social History Allergies: Coded Allergies: Norvasc (Verified Allergy, Severe, redness "i look like hamburger meat", ) Penicillin (Verified Allergy, Severe, RASH / HIVES, 12/04/16) Spironolactone (Verified Allergy, Severe, hives, 12/04/16) HIVES/ITCHING Sulfa (Verified Allergy, Severe, SWELLING, 12/04/16) Reglan (Verified Allergy, Intermediate, 12/04/16) Erythromycin (Verified Allergy, Unknown, 12/04/16) Past Medical History Encephalopathy Carpal tunnel syndrome A. fib on Coumadin with INR 3.1 Asthma Coronary artery disease CHF Aortic stenosis s/p bovine value replacement C. diff Hypertension Hypothyroidism Rheumatoid arthritis Chronic pain syndrome Peripheral neuropathy Past Surgical History AAA s/p repair CAD s/p CABG Bovine Aortic valve replacement Spinal fusion Active Ordered Medications Tylenol Albuterol Dulcolax Vitamin B12 Flovent Loya acid Lasix Neurontin Lactinex Lactulose Synthroid MOM Meclizine Lopressor Zofran Percocet Protonix Zosyn Potassium Pravachol Jess-Colace Senokot Vancomycin Social History , resides in the prison Ex-smoker quit 40 years ago Occasional alcohol use No illicit drugs Physical Exam Vital Signs Vital Signs Date Time Temp Pulse Resp B/P Pulse Ox O2 Delivery O2 Flow Rate FiO2 12/05/16 12:00 99.9 72 16 144/65 96 12/05/16 08:00 98.3 83 16 141/76 96 12/05/16 07:22 96 21 12/05/16 00:00 96.8 77 18 117/57 93 12/04/16 20:00 99.1 78 19 119/63 98 12/04/16 19:14 96 21 12/04/16 15:52 98.3 68 17 111/53 95 Physical Exam GENERAL: Patient is a well-nourished, well-developed CF, awake and alert, not in respiratory distress. Has a moist weak cough SKIN: Warm and dry. No generalized rash, no ecchymoses and no evidence of embolic lesions. HEAD: Atraumatic. Normocephalic. No temporal wasting, or tenderness. EYES: [place] conjunctiva. No petechia or hemorrhage. Pupils equal, round and reactive to light. Extraocular movements full and intact. No scleral icterus. No injection or drainage. EARS, NOSE AND THROAT: Nose without bleeding or purulent nasal discharge. No sinus tenderness. Mucous membranes pink and moist. No oral lesions noted. No exudate. No oral thrush. Edentulous NECK: Trachea midline. Supple and not tender, no meningeal signs CARDIOVASCULAR: Regular rate and rhythm. No murmurs, rubs or gallops heard. Scar C/W surgery RESPIRATORY: Clear to auscultation. Breath sounds equal bilaterally. No rales , wheezing or rhonchi. Decreased BS at bases ABDOMEN: Soft, nondistended, bowel sounds present and normoactive, has diffuse abdominal tenderness. Has mild guarding, but no rebound. No organomegaly. EXTREMITIES: No clubbing, cyanosis, or edema. No calf tenderness. Well perfused and warm. NEUROLOGICAL: Awake and alert. Cranial nerves grossly intact. Motor grossly within normal limits. PSYCHIATRIC: Normal affect, calm and cooperative. LINE: No evidence of infection : Loya cath in place, urine looks clear Laboratory Laboratory Tests Test 12/05/16 04:10 White Blood Count 7.9 Red Blood Count 3.70 Hemoglobin 12.1 Hematocrit 36.6 Mean Corpuscular Volume 98.9 Mean Corpuscular Hemoglobin 32.7 Mean Corpuscular Hemoglobin 33.1 Concent Red Cell Distribution Width 14.4 Platelet Count 115 Mean Platelet Volume 7.9 Neutrophils (%) (Auto) 71.7 Lymphocytes (%) (Auto) 15.9 Monocytes (%) (Auto) 10.9 Eosinophils (%) (Auto) 0.4 Basophils (%) (Auto) 1.1 Neutrophils # (Auto) 5.7 Lymphocytes # (Auto) 1.3 Monocytes # (Auto) 0.9 Eosinophils # (Auto) 0.0 Basophils # (Auto) 0.1 CBC Comment DIFF FINAL Differential Comment Prothrombin Time 41.0 Prothromb Time International 3.5 Ratio Sodium Level 139 Potassium Level 2.9 Chloride Level 100 Carbon Dioxide Level 29.4 Anion Gap 10 Blood Urea Nitrogen 13 Creatinine 0.68 Estimat Glomerular Filtration 83 Rate Random Glucose 86 Calcium Level 7.3 Protein Corrected Calcium 7.7 Total Bilirubin 0.7 Aspartate Amino Transf 44 (AST/SGOT) Alanine Aminotransferase 46 (ALT/SGPT) Alkaline Phosphatase 119 Total Protein 6.3 Albumin 2.4 Date/Time Procedure Status Source Growth 12/04/16 01:50 Urine Culture - Final Complete Urine Catheterized Urine NO GROWTH IN 48 HOURS. 12/04/16 01:45 Aerobic Blood Culture - Preliminary Resulted Blood Peripheral NO GROWTH IN 1 DAY 12/04/16 01:45 Anaerobic Blood Culture - Preliminary Resulted Blood Peripheral NO GROWTH IN 1 DAY Result Diagram: 12/05/160 12/05/16 0410 Imaging RADIOLOGY STUDIES/FILMS REVIEWED Chest X-Ray 12/04/16135 Signed Impressions: Service Date/Time: Sunday, December 04, 2016 01:53 - CONCLUSION: No acute cardiopulmonary disease. Sabino Kearney MD Abdomen/Pelvis CT 12/04/16135 Signed Impressions: Service Date/Time: Sunday, December 04, 2016 02:46 - CONCLUSION: Right lower lobe pneumonia not present previously. Sabino Kearney MD Lower Extremity Ultrasound 12/04/16 0000 Signed Impressions: Service Date/Time: Sunday, December 04, 2016 08:24 - CONCLUSION: There generalized edema. There is no deep venous thrombosis. Manuelito Tolentino MD FACR Head CT 12/04/16 0000 Signed Impressions: Service Date/Time: Sunday, December 04, 2016 02:50 - CONCLUSION: Chronic and small vessel ischemic changes without any evidence for acute hemorrhage or mass effect and right maxillary sinusitis. . Sabino Kearney MD Assessment and Plan Assessment and Plan IMPRESSION Sepsis on admission, likely due to HCAP Abdominal tenderness on exam, CT negative - has had diarrhea since yesterday, though constipated in the NH and received a lot of laxatives Previous Hx C diff Leukocytosis, resolved Fever, improving Encephalopathy, due to sepsis, better RECOMMENDATION Stop Zosyn - gives Hx allergy, maybe delayed onset Use IV Cefepime for GNR coverage Zyvox for GPC coverage Stop Vancomycin Agree with lactinex, monitor stool - if diarrhea continues, check C diff - will have low threshold to start Flagyl, given Hx C diff in the past Check urine for Legionella and pneumococcal antigen Send sputum for Gram stain and culture Repeat chest x-ray tomorrow to reevaluate right base infiltrate seen on CT, but not on admission chest x-ray Follow temps Follow cultures and adjust antibiotics Monitor progress I will determine course of antibiotic depending on her progress, and results of the workup Will follow along with you. Thank you for this consultation Discussed Condition With D/W María Irving MD Dec 05, 2016 13:36
[2016-12-05] MEDS: LINEZOLID 600 MG TAB PO SCH ×2 (14:09→21:34)
[2016-12-05] MEDS: CEFEPIME INJ 1,000 MG in SODIUM CHLORIDE 0.9% INJ 100 ML IV SCH (14:09)
--- NOTE | 2016-12-05 14:30 | RADRPT ---
EXAM DATE/TIME: 12/05/2016 13:43 [facility] COMPARISON: CHEST SINGLE AP, December 04, 2016, 1:53. INDICATIONS : Cough. MEDICAL HISTORY : Cardiovascular disease. Chronic obstructive pulmonary disease. Hypertension. hiatal hernia SURGICAL HISTORY : CABG. ENCOUNTER: Initial ACUITY: 1 day PAIN SCORE: 0/10 LOCATION: Bilateral chest FINDINGS: A single view of the chest demonstrates the lungs to be symmetrically aerated without evidence of mas s, infiltrate or effusion. Post surgical changes from CABG are noted. The cardiomediastinal contours are otherwise unremarkable. Bone cement is identified in the upper lumbar spine. Osseous structures are intact. CONCLUSION: No evidence of acute cardiopulmonary process. Status post CABG. Status post vertebral body cement augmentation in the upper lumbar spine. Jefry Snyder MD on December 05, 2016 at 14:26 Board Certified Radiologist. This report was verified electronically.
[2016-12-05] MEDS: PRAVASTATIN SOD 20 MG TAB PO SCH (21:33)
[2016-12-06] VITALS (9 sets, daily range): BP systolic 132–180; BP diastolic 58–76; PULSE 72–86; RESP 18–20; TEMP 96.9–99.5; O2SAT 94–100
[2016-12-06] MEDS: RESP: ALBUTEROL 2.5 MG/IPRATROPIUM 0.5 MG NEB (SCH) NEB ×6 (00:13→20:07)
[2016-12-06] MEDS: CEFEPIME INJ 1,000 MG in SODIUM CHLORIDE 0.9% INJ 100 ML IV SCH ×2 (02:14→12:31)
[2016-12-06] MEDS: SODIUM CHLOR 0.9% 1000 ML INJ 1,000 ML IV SCH (05:32)
[2016-12-06] MEDS: LEVOTHYROXINE SODIUM 50 MCG TAB PO SCH (05:35)
[2016-12-06 06:21] LABS: BASOPHIL % 0.4 % (0.0-2.0); EOSINOPHIL # 0.1 TH/MM3 (0-0.4); EOSINOPHIL % 1.5 % (0.0-4.0); HEMATOCRIT 36.9 % (35.0-46.0); HEMO FLAGS DIFF FINAL; LYMPHOCYTE # 1.4 TH/MM3 (1.0-4.8); MEAN CELL VOLUME 98.4 FL (80.0-100.0); MEAN CORPUSCULAR HEMOGLOBIN 33.5 PG (27.0-34.0); MONO % 11.3 % (0.0-8.0); NEUT % 67.8 % (16.0-70.0); PLATELET COUNT 125 TH/MM3 (150-450); RED BLOOD COUNT 3.75 MIL/MM3 (4.00-5.30); RED CELL DISTRIBUTION WIDTH 14.6 % (11.6-17.2); WHITE BLOOD COUNT 7.3 TH/MM3 (4.0-11.0)
[2016-12-06 06:28] LABS: INTERNATIONAL NORMALIZED RATIO 2.6 RATIO; PROTHROMBIN TIME - PATIENT 30.5 SEC (9.8-11.6)
[2016-12-06 06:52] LABS: BICARBONATE 23.9 MEQ/L (21.0-32.0); POTASSIUM 3.5 MEQ/L (3.5-5.1)
[2016-12-06 07:13] LABS: CALCIUM-PROTEIN CORRECTED 7.9 MG/DL (8.5-10.1)
[2016-12-06] MEDS: FLUTICASONE PROPIONATE 220 MCG/ACT 12 GM INHALER INH SCH ×2 (07:59→19:42)
[2016-12-06] MEDS: LACTOBACILLUS ACIDOPHILUS TAB PO SCH ×2 (08:00→19:43)
[2016-12-06] MEDS: CYANOCOBALAMIN 100 MCG TAB PO SCH (08:00)
[2016-12-06] MEDS: DOCUSATE SODIUM 50 MG/SENNA 8.6 MG TAB PO SCH ×2 (08:00→19:43)
[2016-12-06] MEDS: FOLIC ACID 1 MG TAB PO SCH (08:00)
[2016-12-06] MEDS: POTASSIUM CHLORIDE 20 MEQ CONTROLLED RELEASE TAB PO SCH ×3 (08:00→16:06)
[2016-12-06] MEDS: METOPROLOL TARTRATE 25 MG TAB PO SCH ×2 (08:00→19:43)
[2016-12-06] MEDS: SODIUM CHLORIDE 0.9% FLUSH 10 ML FLUSH IV FLUSH SCH ×2 (08:00→19:43)
[2016-12-06] MEDS: PANTOPRAZOLE SOD 20 MG DELAYED RELEASE TAB PO SCH (08:01)
[2016-12-06] MEDS: GABAPENTIN 100 MG CAP PO SCH ×3 (08:01→16:06)
[2016-12-06] MEDS: FUROSEMIDE 40 MG TAB PO SCH ×2 (08:01→19:43)
[2016-12-06] MEDS: LINEZOLID 600 MG TAB PO SCH (08:01)
--- NOTE | 2016-12-06 09:50 | HHI.FPPN ---
Subjective Remarks "MUCH BETTER" C/O LEG EDEMA SON AT [facility] D/W RN Objective Vitals Vital Signs Date Time Temp Pulse Resp B/P Pulse Ox O2 Delivery O2 Flow Rate FiO2 12/06/16 08:00 98.4 86 19 180/76 100 12/06/16 07:50 96 12/06/16 04:13 98 21 12/06/16 00:20 98.8 74 20 132/58 95 12/06/16 00:16 96 21 12/05/16 20:43 97.9 84 16 138/70 95 12/05/16 16:00 96.9 78 16 125/64 95 12/05/16 15:16 93 21 12/05/16 12:00 99.9 72 16 144/65 96 I/O 12/05/16 12/05/16 12/05/16 12/06/16 12/06/16 12/06/16 07:00 15:00 23:00 07:00 15:00 23:00 Intake Total 845 ml 495 ml 541 ml 937 ml 120 ml Output Total 2000 ml 500 ml 300 ml Balance -1155 ml -5 ml 241 ml 937 ml 120 ml Intake Oral 120 ml 120 ml 120 ml IV Total 725 ml 375 ml 541 ml 937 ml Output Urine Total 2000 ml 500 ml 300 ml # Voids 1 # Bowel Movements 4 1 Result Diagram: 12/06/1652212/06/16522 Objective Remarks GENERAL: SKIN: Warm and dry. HEAD: Atraumatic. Normocephalic. EYES: Pupils equal and round. No scleral icterus. No injection or drainage. ENT: No nasal bleeding or discharge. Mucous membranes pink and moist. NECK: Trachea midline. No JVD. CARDIOVASCULAR: Regular rate and rhythm. RESPIRATORY: No accessory muscle use. Breath sounds equal bilaterally. Mild patchy ronchi, no crackles or consolidation GASTROINTESTINAL: Abdomen soft, non-tender, nondistended. Hepatic and splenic margins not palpable. MUSCULOSKELETAL: Extremities without clubbing, cyanosis, or edema. No obvious deformities. NEUROLOGICAL: Awake and alert. No obvious cranial nerve deficits. Motor grossly within normal limits. 2 out of 5 muscle strength in the arms and legs. Normal speech. PSYCHIATRIC: Appropriate mood and affect; insight and judgment normal. A/P Assessment and Plan AMS secondary to metabolic encephalopathy Sepsis on arrival (temp 103.1, WBC 15.7 source Healthcare associated PNA) Healthcare associated PNA No UTI- UA with protein high, large amount occult blood present, negative leukocyte esterase, urine bacteria present, culture pending Zosyn and Vancomycin given in ER hypokalemia: replace K A Fib- rate controlled Continue Coumadin with pharmacy consult continue home medication metoprolol for rate control History of C- diff now on abx Lactobacillus BID watch for loose stools/diarrhea ulceration of oral mucosa Magic mouth wash RLE edema >L with calf pain US - Hypocalcemia: replace Ca peripheral neuropathy, hyperlipidemia, CHF hypothyroidism DVT prophylaxis patient is on Coumadin with a therapeutic INR Lower IVF's DC ramirez today. P.T. ordered. Dispo: back to [facility] Problem List: (1) Pneumonia Status: Acute (2) Sepsis Status: Acute (3) Encephalopathy Status: Acute (4) History of Clostridium difficile colitis Status: Chronic (5) Physical deconditioning Status: Chronic (6) UTI (lower urinary tract infection) Status: Acute (7) GERD (gastroesophageal reflux disease) Status: Chronic (8) CHF (congestive heart failure) Status: Chronic (9) Atrial fibrillation Status: Chronic (10) COPD (chronic obstructive pulmonary disease) Status: Chronic (11) Rheumatoid arthritis Status: Chronic (12) Hypertension Status: Chronic (13) Aortic aneurysm Status: Resolved (14) Lumbar spondylosis Status: Acute (15) Obesity Status: Acute (16) Hyperlipidemia Status: Chronic (17) Osteoarthritis Status: Chronic Problem Qualifiers (1) Pneumonia: Qualified Code: J18.1 - Pneumonia of right lower lobe due to infectious organism (2) Sepsis: Qualified Code: A41.9 - Sepsis, due to unspecified organism Arpit Archer MD Dec 06, 2016 09:50
[2016-12-06] MEDS: CALCIUM CARBONATE 1.25 GM (CA 500 MG) TAB PO SCH ×2 (11:02→19:43)
--- NOTE | 2016-12-06 12:50 | HHI.IDPN ---
Subjective Subjective Remarks Notes reviewed No further fever No diarrhea Cough is stable Chest x-ray repeat no infiltrate WBC down to normal Blood cultures negative CT A/P with RLL infiltrate Antibiotics Cefepime Zyvox Lines PIV Past Medical History Encephalopathy Carpal tunnel syndrome A. fib on Coumadin with INR 3.1 Asthma Coronary artery disease CHF Aortic stenosis s/p bovine value replacement C. diff Hypertension Hypothyroidism Rheumatoid arthritis Chronic pain syndrome Peripheral neuropathy Past Surgical History AAA s/p repair CAD s/p CABG Bovine Aortic valve replacement Spinal fusion Allergies: Coded Allergies: Norvasc (Verified Allergy, Severe, redness "i look like hamburger meat", ) Penicillin (Verified Allergy, Severe, RASH / HIVES, 12/04/16) Spironolactone (Verified Allergy, Severe, hives, 12/04/16) HIVES/ITCHING Sulfa (Verified Allergy, Severe, SWELLING, 12/04/16) Reglan (Verified Allergy, Intermediate, 12/04/16) Erythromycin (Verified Allergy, Unknown, 12/04/16) Objective . Vital Signs Date Time Temp Pulse Resp B/P Pulse Ox O2 Delivery O2 Flow Rate FiO2 12/06/16 08:00 98.4 86 19 180/76 100 12/06/16 07:50 96 12/06/16 04:13 98 21 12/06/16 00:20 98.8 74 20 132/58 95 12/06/16 00:16 96 21 12/05/16 20:43 97.9 84 16 138/70 95 12/05/16 16:00 96.9 78 16 125/64 95 12/05/16 15:16 93 21 12/05/16 12/05/16 12/06/16 15:00 23:00 07:00 Intake Total 495 ml 541 ml 937 ml Output Total 500 ml 300 ml Balance -5 ml 241 ml 937 ml Intake Oral 120 ml IV Total 375 ml 541 ml 937 ml Output Urine Total 500 ml 300 ml # Bowel Movements 1 . Laboratory Tests Test 12/05/16 12/06/16 04:10 05:23 White Blood Count 7.9 TH/MM3 7.3 TH/MM3 Red Blood Count 3.70 MIL/MM3 3.75 MIL/MM3 Hemoglobin 12.1 GM/DL 12.6 GM/DL Hematocrit 36.6 % 36.9 % Mean Corpuscular Volume 98.9 FL 98.4 FL Mean Corpuscular Hemoglobin 32.7 PG 33.5 PG Mean Corpuscular Hemoglobin 33.1 % 34.0 % Concent Red Cell Distribution Width 14.4 % 14.6 % Platelet Count 115 TH/MM3 125 TH/MM3 Mean Platelet Volume 7.9 FL 7.6 FL Neutrophils (%) (Auto) 71.7 % 67.8 % Lymphocytes (%) (Auto) 15.9 % 19.0 % Monocytes (%) (Auto) 10.9 % 11.3 % Eosinophils (%) (Auto) 0.4 % 1.5 % Basophils (%) (Auto) 1.1 % 0.4 % Neutrophils # (Auto) 5.7 TH/MM3 5.0 TH/MM3 Lymphocytes # (Auto) 1.3 TH/MM3 1.4 TH/MM3 Monocytes # (Auto) 0.9 TH/MM3 0.8 TH/MM3 Eosinophils # (Auto) 0.0 TH/MM3 0.1 TH/MM3 Basophils # (Auto) 0.1 TH/MM3 0.0 TH/MM3 CBC Comment DIFF FINAL DIFF FINAL Differential Comment Laboratory Tests Test 12/05/16 12/06/16 04:10 05:23 Sodium Level 139 MEQ/L 138 MEQ/L Potassium Level 2.9 MEQ/L 3.5 MEQ/L Chloride Level 100 MEQ/L 103 MEQ/L Carbon Dioxide Level 29.4 MEQ/L 23.9 MEQ/L Anion Gap 10 MEQ/L 11 MEQ/L Blood Urea Nitrogen 13 MG/DL 10 MG/DL Creatinine 0.68 MG/DL 0.62 MG/DL Estimat Glomerular Filtration 83 ML/MIN 92 ML/MIN Rate Random Glucose 86 MG/DL 78 MG/DL Calcium Level 7.3 MG/DL 7.4 MG/DL Protein Corrected Calcium 7.7 MG/DL 7.9 MG/DL Total Bilirubin 0.7 MG/DL Aspartate Amino Transf 44 U/L (AST/SGOT) Alanine Aminotransferase 46 U/L (ALT/SGPT) Alkaline Phosphatase 119 U/L Total Protein 6.3 GM/DL 6.2 GM/DL Albumin 2.4 GM/DL Microbiology Date/Time Procedure Status Source Growth 12/04/16 01:40 Aerobic Blood Culture - Preliminary Resulted Blood Peripheral NO GROWTH IN 2 DAYS 12/04/16 01:40 Anaerobic Blood Culture - Preliminary Resulted Blood Peripheral NO GROWTH IN 2 DAYS 12/04/16 01:45 Aerobic Blood Culture - Preliminary Resulted Blood Peripheral NO GROWTH IN 2 DAYS 12/04/16 01:45 Anaerobic Blood Culture - Preliminary Resulted Blood Peripheral NO GROWTH IN 2 DAYS 12/04/16 01:50 Urine Culture - Final Complete Urine Catheterized Urine NO GROWTH IN 48 HOURS. 12/06/16 03:15 Legionella Antigen - Final Complete Urine Catheterized Urine PRESUMPTIVE NEGATIVE FOR LEGIONELLA P... 12/06/16 03:15 Streptococcus pneumoniae Antigen (M - Final Complete Urine Catheterized Urine PRESUMPTIVE NEGATIVE FOR STREPTOCOCCU... Imaging Last Impressions Chest X-Ray 12/05/16 0000 Signed Impressions: Service Date/Time: Monday, December 05, 2016 13:43 - CONCLUSION: No evidence of acute cardiopulmonary process. Status post CABG. Status post vertebral body cement augmentation in the upper lumbar spine. Jefry Snyder MD Abdomen/Pelvis CT 12/04/16 0136 Signed Impressions: Service Date/Time: Sunday, December 04, 2016 02:46 - CONCLUSION: Right lower lobe pneumonia not present previously. Sabino Kearney MD Lower Extremity Ultrasound 12/04/16 0000 Signed Impressions: Service Date/Time: Sunday, December 04, 2016 08:24 - CONCLUSION: There generalized edema. There is no deep venous thrombosis. Manuelito Tolentino MD FACR Head CT 12/04/16 0000 Signed Impressions: Service Date/Time: Sunday, December 04, 2016 02:50 - CONCLUSION: Chronic and small vessel ischemic changes without any evidence for acute hemorrhage or mass effect and right maxillary sinusitis. . Sabino Kearney MD Physical Exam GENERAL: awake and alert, not in respiratory distress. Has a moist weak cough SKIN: Warm and dry. No generalized rash, no ecchymoses and no evidence of embolic lesions. HEAD: Atraumatic. Normocephalic. No temporal wasting, or tenderness. EYES: [place] conjunctiva. No petechia or hemorrhage. Pupils equal, round and reactive to light. Extraocular movements full and intact. No scleral icterus. No injection or drainage. EARS, NOSE AND THROAT: No sinus tenderness. Mucous membranes pink and moist. No oral lesions noted. No exudate. No oral thrush. Edentulous NECK: Trachea midline. Supple and not tender, no meningeal signs CARDIOVASCULAR: Regular rate and rhythm. No murmurs, rubs or gallops heard. Scar C/W surgery RESPIRATORY: Clear to auscultation. Breath sounds equal bilaterally. No rales , wheezing or rhonchi. Decreased BS at bases ABDOMEN: Soft, nondistended, bowel sounds present and normoactive, has diffuse abdominal tenderness. Has mild guarding, but no rebound. No organomegaly. EXTREMITIES: No clubbing, cyanosis, or edema. No calf tenderness. Well perfused and warm. NEUROLOGICAL: Non-focal PSYCHIATRIC: Normal affect, calm and cooperative. LINE: No evidence of infection : Loya cath in place, urine looks clear Assessment & Plan Remarks IMPRESSION Sepsis on admission, likely due to HCAP, prob early - has R base infiltrate on CT, not seen on CXR Abdominal tenderness on exam, CT negative - has had diarrhea since yesterday, though constipated in the NH and received a lot of laxatives Previous Hx C diff Leukocytosis, resolved Fever, resolved Encephalopathy, due to sepsis, better RECOMMENDATION Continue Cefepime - for GNR coverage Stop Zyvox - less likely MRSA since she improved fairly quickly Continue lactinex If remains stable, and no further fever, will switch to oral Levaquin and give 7 days oral Abx Follow C/S Monitor temps Monitor progress María Valdez MD Dec 06, 2016 12:49
[2016-12-06] MEDS: WARFARIN SOD 2 MG TAB PO SCH (16:06)
[2016-12-06] MEDS: PRAVASTATIN SOD 20 MG TAB PO SCH (19:43)
[2016-12-06] MEDS ORDERED: PHARMACY ORDERED LAB ONE (22:45)
[2016-12-07] VITALS (8 sets, daily range): BP systolic 130–158; BP diastolic 59–77; PULSE 67–77; RESP 16–21; TEMP 96.8–98.5; O2SAT 93–98
[2016-12-07] MEDS: RESP: ALBUTEROL 2.5 MG/IPRATROPIUM 0.5 MG NEB (SCH) NEB ×6 (00:23→19:30)
[2016-12-07] MEDS: CEFEPIME INJ 1,000 MG in SODIUM CHLORIDE 0.9% INJ 100 ML IV SCH ×2 (01:20→12:29)
[2016-12-07] MEDS: SODIUM CHLOR 0.9% 1000 ML INJ 1,000 ML IV SCH (05:41)
[2016-12-07] MEDS: LEVOTHYROXINE SODIUM 50 MCG TAB PO SCH (05:41)
[2016-12-07 06:19] LABS: AUTOMATED NEUTROPHIL # 5.1 TH/MM3 (1.8-7.7); BASOPHIL % 0.6 % (0.0-2.0); EOSINOPHIL # 0.1 TH/MM3 (0-0.4); HEMATOCRIT 38.7 % (35.0-46.0); HEMO FLAGS DIFF FINAL; LYMPH % 18.3 % (9.0-44.0); LYMPHOCYTE # 1.4 TH/MM3 (1.0-4.8); MEAN CELL VOLUME 97.1 FL (80.0-100.0); MEAN CORPUSCULAR HEMOGLOBIN 33.7 PG (27.0-34.0); MEAN CORPUSCULAR HGB CONC 34.7 % (32.0-36.0); MONO % 11.3 % (0.0-8.0); NEUT % 68.8 % (16.0-70.0); PLATELET COUNT 142 TH/MM3 (150-450); RED BLOOD COUNT 3.98 MIL/MM3 (4.00-5.30); RED CELL DISTRIBUTION WIDTH 14.1 % (11.6-17.2); WHITE BLOOD COUNT 7.5 TH/MM3 (4.0-11.0)
[2016-12-07 06:30] LABS: INTERNATIONAL NORMALIZED RATIO 2.6 RATIO; PROTHROMBIN TIME - PATIENT 29.4 SEC (9.8-11.6)
[2016-12-07 06:44] LABS: BICARBONATE 25.1 MEQ/L (21.0-32.0); POTASSIUM 3.2 MEQ/L (3.5-5.1)
[2016-12-07] MEDS: FOLIC ACID 1 MG TAB PO SCH (08:43)
[2016-12-07] MEDS: LACTOBACILLUS ACIDOPHILUS TAB PO SCH ×2 (08:43→19:16)
[2016-12-07] MEDS: PANTOPRAZOLE SOD 20 MG DELAYED RELEASE TAB PO SCH (08:43)
[2016-12-07] MEDS: GABAPENTIN 100 MG CAP PO SCH ×3 (08:44→16:16)
[2016-12-07] MEDS: METOPROLOL TARTRATE 25 MG TAB PO SCH ×2 (08:44→19:16)
[2016-12-07] MEDS: DOCUSATE SODIUM 50 MG/SENNA 8.6 MG TAB PO SCH ×2 (08:44→19:01)
[2016-12-07] MEDS: FUROSEMIDE 40 MG TAB PO SCH ×2 (08:44→19:16)
[2016-12-07] MEDS: CYANOCOBALAMIN 100 MCG TAB PO SCH (08:44)
[2016-12-07] MEDS: CALCIUM CARBONATE 1.25 GM (CA 500 MG) TAB PO SCH ×2 (08:44→19:16)
[2016-12-07] MEDS: SODIUM CHLORIDE 0.9% FLUSH 10 ML FLUSH IV FLUSH SCH ×2 (08:44→19:17)
[2016-12-07] MEDS: POTASSIUM CHLORIDE 20 MEQ CONTROLLED RELEASE TAB PO SCH ×3 (08:44→16:15)
--- NOTE | 2016-12-07 08:44 | HHI.PR ---
Subjective Remarks [facility] covering . patient is resting comfortably with no distress. remains afebrile. had a small loose BM last night. d/w the RN and no other acute issues over night. Objective Vitals Vital Signs Date Time Temp Pulse Resp B/P Pulse Ox O2 Delivery O2 Flow Rate FiO2 12/07/16 08:00 98.5 75 16 137/74 93 12/07/16 04:07 96 21 12/07/16 00:57 97.9 67 18 137/66 94 12/07/16 00:24 96 21 12/06/16 20:09 97 21 12/06/16 20:00 98.8 79 20 147/67 94 12/06/16 16:00 99.5 72 18 143/64 96 12/06/16 12:00 96.9 75 20 157/67 95 I/O 12/06/16 12/06/16 12/06/16 12/07/16 12/07/16 12/07/16 07:00 15:00 23:00 07:00 15:00 23:00 Intake Total 937 ml 821 ml 971 ml 684 ml Output Total 500 ml 2100 ml Balance 937 ml 321 ml -1129 ml 684 ml Intake Oral 600 ml 480 ml 380 ml IV Total 937 ml 221 ml 491 ml 304 ml Output Urine Total 500 ml 2100 ml # Voids 6 # Bowel Movements 1 7 3 Result Diagram: 12/07/16 0545 12/07/16 0545 Imaging Last Impressions Chest X-Ray 12/05/16 0000 Signed Impressions: Service Date/Time: Monday, December 05, 2016 13:43 - CONCLUSION: No evidence of acute cardiopulmonary process. Status post CABG. Status post vertebral body cement augmentation in the upper lumbar spine. Jefry Snyder MD Abdomen/Pelvis CT 12/04/16 0136 Signed Impressions: Service Date/Time: Sunday, December 04, 2016 02:46 - CONCLUSION: Right lower lobe pneumonia not present previously. Sabino Kearney MD Lower Extremity Ultrasound 12/04/16 0000 Signed Impressions: Service Date/Time: Sunday, December 04, 2016 08:24 - CONCLUSION: There generalized edema. There is no deep venous thrombosis. Manuelito Tolentino MD FACR Head CT 12/04/16 0000 Signed Impressions: Service Date/Time: Sunday, December 04, 2016 02:50 - CONCLUSION: Chronic and small vessel ischemic changes without any evidence for acute hemorrhage or mass effect and right maxillary sinusitis. . K. Lucas Kearney MD Objective Remarks GENERAL: elderly female , in no apparent distress. CARDIOVASCULAR: Regular rate and regular rhythm without murmurs, gallops, or rubs. RESPIRATORY: Clear to auscultation. Breath sounds equal bilaterally. No wheezes , rales, or rhonchi. GASTROINTESTINAL: Abdomen soft, non-tender, nondistended. Normal, active bowel sounds MUSCULOSKELETAL: Extremities with bilateral pedal edema. NEURO: Alert & Oriented x4 to person, place, time, situation. Moves all ext x4 Medications and IVs Current Medications Sodium Chloride (NS 1000 ml Inj) 1,000 ml @ 999 mls/hr BOLUS ONCE IV Last administered on 12/04/16 01:47; Start 12/04/16 at 01:45; Stop 12/04/16 at 02:45 ; Status DC Iohexol 95 ml 95 ml STK-MED ONCE IV Last administered on 12/04/16 02:54; Start 12/04/16 at 02:54; Stop 12/04/16 at 02:56; Status DC Vancomycin HCl 1000 mg/Sodium Chloride 250 ml @ 250 mls/hr ONCE ONCE IV Last administered on 12/04/16 03:26; Start 12/04/16 at 03:15; Stop 12/04/16 at 04:14 ; Status DC Piperacillin Sod/ Tazobactam Sod (Zosyn 3.375 Gm Premix) 50 ml @ 100 mls/hr ONCE ONCE IV Last administered on 12/04/16 03:26; Start 12/04/16 at 03:15; Stop 12/04/16 at 03:44; Status DC Acetaminophen 650 mg 650 mg ONCE ONCE PO Last administered on 12/04/16 03:26 ; Start 12/04/16 at 03:15; Stop 12/04/16 at 03:16; Status DC Sodium Chloride (NS 1000 ml Inj) 1,000 ml @ 30 mls/hr Q24H IV Last administered on 12/07/16 05:41; Start 12/04/16 at 03:32 Sodium Chloride (NS Flush) 2 ml UNSCH PRN IV FLUSH FLUSH AFTER USING IV ACCESS ; Start 12/04/16 at 03:45 Sodium Chloride (NS Flush) 2 ml BID IV FLUSH Last administered on 12/06/16 08: 00; Start 12/04/16 at 09:00 Acetaminophen (Tylenol) 650 mg Q4H PRN PO TEMP > 100.4; Start 12/04/16 at 03:45 Ondansetron HCl (Zofran Inj) 4 mg Q6H PRN IVP NAUSEA OR VOMITING Last administered on 12/06/16 12:31; Start 12/04/16 at 03:45 Enoxaparin Sodium (Lovenox Inj) 40 mg Q24H SQ Last administered on 12/04/16 04 :03; Start 12/04/16 at 04:00; Stop 12/04/16 at 04:10; Status DC Senna/Docusate Sodium (Jess-Colace) 1 tab BID PO Last administered on 08:00; Start 12/04/16 at 09:00 Magnesium Hydroxide (Milk Of Magnesia Liq) 30 ml Q12H PRN PO MILD - MODERATE CONSTIPATION; Start 12/04/16 at 03:45 Sennosides (Senokot) 17.2 mg Q12H PRN PO MODERATE - SEVERE CONSTIPATION; Start 12/04/16 at 03:45 Bisacodyl (Dulcolax Supp) 10 mg DAILY PRN RECTAL SEVERE CONSITIPATION; Start at 03:45 Lactulose 30 ml 30 ml DAILY PRN PO SEVERE CONSITIPATION Last administered on 17:20; Start 12/04/16 at 03:45 Piperacillin Sod/ Tazobactam Sod 100 ml @ 200 mls/hr Q6H IV Last administered on 12/05/16 11:43; Start 12/04/16 at 10:00; Stop 12/05/16 at 13:21; Status DC Pharmacy Profile Note 0 ml @ 0 mls/hr UNSCH OTHER ; Start 12/04/16 at 03:45; Stop 12/05/16 at 13:21; Status DC Vancomycin HCl/ Sodium Chloride (Vancomycin Inj/ NS 250 ml Inj) 250 ml @ 250 mls/hr Q12H IV ; Start 12/04/16 at 03:45; Stop 12/04/16 at 03:55; Status DC Albuterol Sulfate (Albuterol Neb) 2.5 mg ONCE NEB Last administered on 04:06; Start 12/04/16 at 03:45; Stop 12/04/16 at 04:30; Status DC Alendronate Sodium (Fosamax) 70 mg Q7D PO ; Start 12/04/16 at 03:45; Stop at 03:53; Status DC Cyanocobalamin (Vitamin B12) 500 mcg DAILY PO Last administered on 12/06/16 08 :00; Start 12/04/16 at 09:00 Fluticasone Propionate (Flovent Hfa 220 Mcg Inh) 1 puff BID INH Last administered on 12/06/16 19:42; Start 12/04/16 at 09:00 Folic Acid (Folate) 1 mg DAILY PO Last administered on 12/06/16 08:00; Start 12/04/16 at 09:00 Furosemide (Lasix) 40 mg BID PO Last administered on 12/06/16 19:43; Start 06/10 at 09:00 Gabapentin (Neurontin) 100 mg TID PO Last administered on 12/06/16 16:06; Start 12/04/16 at 09:00 Levothyroxine Sodium (Synthroid) 50 mcg DAILY@07 PO Last administered on 05:41; Start 12/04/16 at 07:00 Meclizine HCl (Antivert) 25 mg QID PRN PO VERTIGO; Start 12/04/16 at 03:45 Metoprolol Tartrate (Lopressor) 25 mg BID PO Last administered on 12/06/16 19: 43; Start 12/04/16 at 09:00 Potassium Chloride (KCl) 20 meq TID PO Last administered on 12/06/16 16:06; Start 12/04/16 at 09:00 Pravastatin Sodium (Pravachol) 20 mg HS PO Last administered on 12/06/16 19:43 ; Start 12/04/16 at 21:00 Warfarin Sodium (Coumadin) 4 mg DAILY@16 PO ; Start 12/04/16 at 16:00; Stop at 11:02; Status DC Pantoprazole Sodium (Protonix) 20 mg DAILY PO Last administered on 12/06/16 08 :01; Start 12/04/16 at 09:00 Multi-Ingredient Mouthwash/Gargle (Magic Mouthwash Adult Liq) 10 ml QID SWISH- SWAL Last administered on 12/05/16 11:43; Start 12/05/16 at 11:00; Stop at 13:22; Status DC Albuterol/ Ipratropium (Duoneb Neb) 1 ampule Q4HR NEB NEB Last administered on 12/07/16 08:00; Start 12/04/16 at 08:00 Albuterol/ Ipratropium (Duoneb Neb) 1 ampule Q2HR NEB PRN NEB SOB/WHEEZING; Start 12/04/16 at 06:00 Lactobacillus Acidophilus (Lactinex) 1 tab Q12HR PO Last administered on 19:43; Start 12/04/16 at 09:00 Oxycodone/ Acetaminophen 1 tab 1 tab Q8HR PRN PO BACK PAIN Last administered on 12/05/16 21:33; Start 12/04/16 at 08:15 Vancomycin HCl/ Sodium Chloride (Vancomycin Inj/ NS 250 ml Inj) 262.5 ml @ 262.5 mls/ hr Q24H IV Last administered on 12/04/16 23:58; Start 12/04/16 at 23:00; Stop 12/05/16 at 13:22; Status DC Miscellaneous Information SPECIFIC LAB TO BE ... ONCE ONCE .XX ; Start 12/06 at 22:45; Stop 12/06/16 at 22:46; Status Cancel Potassium Chloride (KCl 20 Meq Premix Inj) 100 ml @ 50 mls/hr Q2H IV Last administered on 12/05/16 06:23; Start 12/05/16 at 06:30; Stop 12/05/16 at 10:29 ; Status DC Potassium Chloride 20 meq 20 meq ONCE ONCE PO Last administered on 12/05/16 10:24; Start 12/05/16 at 10:15; Stop 12/05/16 at 10:16; Status DC Pharmacy Profile Note (Coumadin Consult Pharmacy) 0 ml @ 0 mls/hr UNSCH OTHER ; Start 12/05/16 at 11:00 Linezolid 600 mg 600 mg Q12HR PO Last administered on 12/06/16 08:01; Start at 13:30; Stop 12/06/16 at 12:50; Status DC Cefepime HCl/ Sodium Chloride (Maxipime Inj/NS Inj) 100 ml @ 200 mls/hr Q12H IV Last administered on 12/07/16 01:20; Start 12/05/16 at 14:00 Warfarin Sodium (Coumadin) 2 mg DAILY@16 PO Last administered on 12/06/16 16: 06; Start 12/06/16 at 16:00 Calcium Carbonate (Oscal) 500 mg Q12HR PO Last administered on 12/06/16 19:43 ; Start 12/06/16 at 09:45 Patient Medication Teaching (Coumadin Booklet) 1 STK-MED ONCE .ROUTE Last administered on 12/06/16 16:06; Start 12/06/16 at 16:03; Stop 12/06/16 at 16:04 ; Status DC A/P Assessment and Plan A/P AMS secondary to metabolic encephalopathy- resolved Sepsis due to Healthcare associated PNA; started on Cefepime- blood cultures negative so far-ID following. hypokalemia: will replace. A Fib- rate controlled Continue Coumadin with pharmacy consult continue home medication metoprolol for rate control History of C- diff now on abx Lactobacillus BID watch for loose stools/diarrhea ulceration of oral mucosa Magic mouth wash pedal edema; venous doppler negative for DVT. Hypocalcemia: replace Ca hyperlipidemia; continue statin CHF - chronic diastolic- compensated; continue BB and diuretic. hypothyroidism - on levothyroxine DVT prophylaxis patient is on Coumadin with a therapeutic INR continue PT Discharge Planning expected to be discharged within the next 24 hrs- awaiting ID f/u and recommendations. Tho Hart MD Dec 07, 2016 08:44
[2016-12-07] MEDS: FLUTICASONE PROPIONATE 220 MCG/ACT 12 GM INHALER INH SCH ×2 (08:45→19:16)
[2016-12-07] MEDS ORDERED: POTASSIUM CHLORIDE 10 MEQ CONTROLLED RELEASE TAB PO ONE (09:00)
--- NOTE | 2016-12-07 14:02 | HHI.IDPN ---
Subjective Subjective Remarks Notes reviewed No further fever Clinically stable Chest x-ray repeat no infiltrate WBC down to normal Blood cultures negative CT A/P with RLL infiltrate Antibiotics Cefepime Lines PIV Past Medical History Encephalopathy Carpal tunnel syndrome A. fib on Coumadin with INR 3.1 Asthma Coronary artery disease CHF Aortic stenosis s/p bovine value replacement C. diff Hypertension Hypothyroidism Rheumatoid arthritis Chronic pain syndrome Peripheral neuropathy Past Surgical History AAA s/p repair CAD s/p CABG Bovine Aortic valve replacement Spinal fusion Allergies: Coded Allergies: Norvasc (Verified Allergy, Severe, redness "i look like hamburger meat", ) Penicillin (Verified Allergy, Severe, RASH / HIVES, 12/04/16) Spironolactone (Verified Allergy, Severe, hives, 12/04/16) HIVES/ITCHING Sulfa (Verified Allergy, Severe, SWELLING, 12/04/16) Reglan (Verified Allergy, Intermediate, 12/04/16) Erythromycin (Verified Allergy, Unknown, 12/04/16) Objective . Vital Signs Date Time Temp Pulse Resp B/P Pulse Ox O2 Delivery O2 Flow Rate FiO2 12/07/16 12:00 96.8 77 17 130/77 96 12/07/16 08:00 98.5 75 16 137/74 93 12/07/16 04:07 96 21 12/07/16 00:57 97.9 67 18 137/66 94 12/07/16 00:24 96 21 12/06/16 20:09 97 21 12/06/16 20:00 98.8 79 20 147/67 94 12/06/16 16:00 99.5 72 18 143/64 96 12/06/16 12/06/16 12/07/16 15:00 23:00 07:00 Intake Total 821 ml 971 ml 684 ml Output Total 500 ml 2100 ml Balance 321 ml -1129 ml 684 ml Intake Oral 600 ml 480 ml 380 ml IV Total 221 ml 491 ml 304 ml Output Urine Total 500 ml 2100 ml # Voids 6 # Bowel Movements 1 7 3 . Laboratory Tests Test 12/06/16 12/07/16 05:23 05:45 White Blood Count 7.3 TH/MM3 7.5 TH/MM3 Red Blood Count 3.75 MIL/MM3 3.98 MIL/MM3 Hemoglobin 12.6 GM/DL 13.4 GM/DL Hematocrit 36.9 % 38.7 % Mean Corpuscular Volume 98.4 FL 97.1 FL Mean Corpuscular Hemoglobin 33.5 PG 33.7 PG Mean Corpuscular Hemoglobin 34.0 % 34.7 % Concent Red Cell Distribution Width 14.6 % 14.1 % Platelet Count 125 TH/MM3 142 TH/MM3 Mean Platelet Volume 7.6 FL 7.3 FL Neutrophils (%) (Auto) 67.8 % 68.8 % Lymphocytes (%) (Auto) 19.0 % 18.3 % Monocytes (%) (Auto) 11.3 % 11.3 % Eosinophils (%) (Auto) 1.5 % 1.0 % Basophils (%) (Auto) 0.4 % 0.6 % Neutrophils # (Auto) 5.0 TH/MM3 5.1 TH/MM3 Lymphocytes # (Auto) 1.4 TH/MM3 1.4 TH/MM3 Monocytes # (Auto) 0.8 TH/MM3 0.8 TH/MM3 Eosinophils # (Auto) 0.1 TH/MM3 0.1 TH/MM3 Basophils # (Auto) 0.0 TH/MM3 0.0 TH/MM3 CBC Comment DIFF FINAL DIFF FINAL Differential Comment Laboratory Tests Test 12/06/16 12/07/16 05:23 05:45 Sodium Level 138 MEQ/L 138 MEQ/L Potassium Level 3.5 MEQ/L 3.2 MEQ/L Chloride Level 103 MEQ/L 104 MEQ/L Carbon Dioxide Level 23.9 MEQ/L 25.1 MEQ/L Anion Gap 11 MEQ/L 9 MEQ/L Blood Urea Nitrogen 10 MG/DL 8 MG/DL Creatinine 0.62 MG/DL 0.60 MG/DL Estimat Glomerular Filtration 92 ML/MIN 96 ML/MIN Rate Random Glucose 78 MG/DL 73 MG/DL Calcium Level 7.4 MG/DL 7.7 MG/DL Protein Corrected Calcium 7.9 MG/DL Total Protein 6.2 GM/DL Microbiology Date/Time Procedure Status Source Growth 12/06/16 03:15 Legionella Antigen - Final Complete Urine Catheterized Urine PRESUMPTIVE NEGATIVE FOR LEGIONELLA P... 12/06/16 03:15 Streptococcus pneumoniae Antigen (M - Final Complete Urine Catheterized Urine PRESUMPTIVE NEGATIVE FOR STREPTOCOCCU... Imaging Last Impressions Chest X-Ray 12/05/16 0000 Signed Impressions: Service Date/Time: Monday, December 05, 2016 13:43 - CONCLUSION: No evidence of acute cardiopulmonary process. Status post CABG. Status post vertebral body cement augmentation in the upper lumbar spine. Jefry Snyder MD Abdomen/Pelvis CT 12/04/16 0136 Signed Impressions: Service Date/Time: Sunday, December 04, 2016 02:46 - CONCLUSION: Right lower lobe pneumonia not present previously. Sabino Kearney MD Lower Extremity Ultrasound 12/04/16 0000 Signed Impressions: Service Date/Time: Sunday, December 04, 2016 08:24 - CONCLUSION: There generalized edema. There is no deep venous thrombosis. Manuelito Tolentino MD FACR Head CT 12/04/16 0000 Signed Impressions: Service Date/Time: Sunday, December 04, 2016 02:50 - CONCLUSION: Chronic and small vessel ischemic changes without any evidence for acute hemorrhage or mass effect and right maxillary sinusitis. . Sabino Kearney MD Physical Exam GENERAL: awakens easily, NAD SKIN: Warm and dry. No generalized rash HEAD: Atraumatic. Normocephalic. No temporal wasting, or tenderness. EYES: [place] conjunctiva. No petechia or hemorrhage. Pupils equal, round and reactive to light. Extraocular movements full and intact. No scleral icterus. No injection or drainage. EARS, NOSE AND THROAT: No sinus tenderness. Mucous membranes pink and moist. No oral lesions noted. Edentulous NECK: Trachea midline. Supple and not tender, no meningeal signs CARDIOVASCULAR: Regular rate and rhythm. No murmurs, rubs or gallops heard. Scar C/W surgery RESPIRATORY: Clear to auscultation. Breath sounds equal bilaterally. No rales , wheezing or rhonchi. Decreased BS at bases ABDOMEN: Soft, nondistended, bowel sounds present and normoactive, has diffuse abdominal tenderness. Has mild guarding, but no rebound. No organomegaly. EXTREMITIES: No clubbing, cyanosis, or edema. No calf tenderness. Well perfused and warm. NEUROLOGICAL: Non-focal PSYCHIATRIC: Normal affect, calm and cooperative. LINE: No evidence of infection : Loya cath in place, urine looks clear Assessment & Plan Remarks IMPRESSION Sepsis on admission, likely due to HCAP, prob early, resolved - has R base infiltrate on CT, not seen on CXR Abdominal tenderness on exam, CT negative - has had diarrhea since yesterday, though constipated in the NH and received a lot of laxatives Previous Hx C diff Leukocytosis, resolved Fever, resolved Encephalopathy, due to sepsis, resolved RECOMMENDATION Stop Cefepime Levaquin x 7 days to complete PNA Rx Continue lactinex D/W Dr Hart Clinically doing well from ID [facility] OK for D/C anytime I will sign off Please reconsult if with any new ID issue or question María Valdez MD Dec 07, 2016 14:02
[2016-12-07] MEDS: WARFARIN SOD 2 MG TAB PO SCH (16:15)
[2016-12-07] MEDS: LEVOFLOXACIN 500 MG TAB PO SCH (16:15)
[2016-12-07] MEDS: PRAVASTATIN SOD 20 MG TAB PO SCH (19:17)
[2016-12-08 00:18] VITALS: BP 123/78; PULSE 94; RESP 20; TEMP 98.7; O2SAT 95
[2016-12-08 01:02] VITALS: O2SAT 95
[2016-12-08] MEDS: RESP: ALBUTEROL 2.5 MG/IPRATROPIUM 0.5 MG NEB (SCH) NEB ×2 (01:02→05:21)
[2016-12-08 04:30] LABS: AUTOMATED NEUTROPHIL # 4.1 TH/MM3 (1.8-7.7); BASOPHIL % 0.3 % (0.0-2.0); EOSINOPHIL # 0.1 TH/MM3 (0-0.4); EOSINOPHIL % 1.5 % (0.0-4.0); HEMATOCRIT 37.9 % (35.0-46.0); HEMO FLAGS DIFF FINAL; LYMPH % 20.5 % (9.0-44.0); LYMPHOCYTE # 1.3 TH/MM3 (1.0-4.8); MEAN CELL VOLUME 99.6 FL (80.0-100.0); MEAN CORPUSCULAR HEMOGLOBIN 33.1 PG (27.0-34.0); MEAN CORPUSCULAR HGB CONC 33.3 % (32.0-36.0); MONO % 15.3 % (0.0-8.0); NEUT % 62.4 % (16.0-70.0); PLATELET COUNT 140 TH/MM3 (150-450); RED CELL DISTRIBUTION WIDTH 14.2 % (11.6-17.2); WHITE BLOOD COUNT 6.6 TH/MM3 (4.0-11.0)
[2016-12-08] MEDS: SODIUM CHLOR 0.9% 1000 ML INJ 1,000 ML IV SCH (04:43)
[2016-12-08] MEDS: LEVOTHYROXINE SODIUM 50 MCG TAB PO SCH (04:43)
[2016-12-08 04:44] LABS: INTERNATIONAL NORMALIZED RATIO 2.8 RATIO; PROTHROMBIN TIME - PATIENT 31.8 SEC (9.8-11.6)
[2016-12-08 04:51] LABS: BICARBONATE 23.5 MEQ/L (21.0-32.0)
--- NOTE | 2016-12-08 07:45 | HHI.PR ---
Subjective Remarks resting comfortably with no acute distress. remains afebrile. d/w the RN and no acute issues over night. Objective Vitals Vital Signs Date Time Temp Pulse Resp B/P Pulse Ox O2 Delivery O2 Flow Rate FiO2 12/08/16 01:02 95 12/08/16 00:18 98.7 94 20 123/78 95 12/07/16 20:19 97.6 71 21 155/59 95 12/07/16 16:01 98 21 12/07/16 16:00 98.4 73 16 158/69 95 12/07/16 12:00 96.8 77 17 130/77 96 12/07/16 08:00 98.5 75 16 137/74 93 I/O 12/07/16 12/07/16 12/07/16 12/08/16 12/08/16 12/08/16 07:00 15:00 23:00 07:00 15:00 23:00 Intake Total 684 ml 456 ml 616 ml 565 ml Balance 684 ml 456 ml 616 ml 565 ml Intake Oral 380 ml 120 ml 480 ml 280 ml IV Total 304 ml 336 ml 136 ml 285 ml # Voids 6 3 3 4 # Bowel Movements 3 1 1 Result Diagram: 12/08/16 0331 12/08/16 0331 Imaging Last Impressions Chest X-Ray 12/05/16 0000 Signed Impressions: Service Date/Time: Monday, December 05, 2016 13:43 - CONCLUSION: No evidence of acute cardiopulmonary process. Status post CABG. Status post vertebral body cement augmentation in the upper lumbar spine. Jefry Snyder MD Abdomen/Pelvis CT 12/04/16 0136 Signed Impressions: Service Date/Time: Sunday, December 04, 2016 02:46 - CONCLUSION: Right lower lobe pneumonia not present previously. Sabino Kearney MD Lower Extremity Ultrasound 12/04/16 0000 Signed Impressions: Service Date/Time: Sunday, December 04, 2016 08:24 - CONCLUSION: There generalized edema. There is no deep venous thrombosis. Manuelito Tolentino MD FACR Head CT 12/04/16 0000 Signed Impressions: Service Date/Time: Sunday, December 04, 2016 02:50 - CONCLUSION: Chronic and small vessel ischemic changes without any evidence for acute hemorrhage or mass effect and right maxillary sinusitis. . K. Lucas Kearney MD Objective Remarks GENERAL: elderly female , in no apparent distress. CARDIOVASCULAR: Regular rate and regular rhythm without murmurs, gallops, or rubs. RESPIRATORY: Clear to auscultation. Breath sounds equal bilaterally. No wheezes , rales, or rhonchi. GASTROINTESTINAL: Abdomen soft, non-tender, nondistended. Normal, active bowel sounds MUSCULOSKELETAL: Extremities with bilateral pedal edema. NEURO: Alert & Oriented x4 to person, place, time, situation. Moves all ext x4 Procedures none Medications and IVs Current Medications Sodium Chloride (NS 1000 ml Inj) 1,000 ml @ 999 mls/hr BOLUS ONCE IV Last administered on 12/04/16 01:47; Start 12/04/16 at 01:45; Stop 12/04/16 at 02:45 ; Status DC Iohexol 95 ml 95 ml STK-MED ONCE IV Last administered on 12/04/16 02:54; Start 12/04/16 at 02:54; Stop 12/04/16 at 02:56; Status DC Vancomycin HCl 1000 mg/Sodium Chloride 250 ml @ 250 mls/hr ONCE ONCE IV Last administered on 12/04/16 03:26; Start 12/04/16 at 03:15; Stop 12/04/16 at 04:14 ; Status DC Piperacillin Sod/ Tazobactam Sod (Zosyn 3.375 Gm Premix) 50 ml @ 100 mls/hr ONCE ONCE IV Last administered on 12/04/16 03:26; Start 12/04/16 at 03:15; Stop 12/04/16 at 03:44; Status DC Acetaminophen 650 mg 650 mg ONCE ONCE PO Last administered on 12/04/16 03:26 ; Start 12/04/16 at 03:15; Stop 12/04/16 at 03:16; Status DC Sodium Chloride (NS 1000 ml Inj) 1,000 ml @ 30 mls/hr Q24H IV Last administered on 12/08/16 04:43; Start 12/04/16 at 03:32 Sodium Chloride (NS Flush) 2 ml UNSCH PRN IV FLUSH FLUSH AFTER USING IV ACCESS ; Start 12/04/16 at 03:45 Sodium Chloride (NS Flush) 2 ml BID IV FLUSH Last administered on 12/06/16 08: 00; Start 12/04/16 at 09:00 Acetaminophen (Tylenol) 650 mg Q4H PRN PO TEMP > 100.4; Start 12/04/16 at 03:45 Ondansetron HCl (Zofran Inj) 4 mg Q6H PRN IVP NAUSEA OR VOMITING Last administered on 12/06/16 12:31; Start 12/04/16 at 03:45 Enoxaparin Sodium (Lovenox Inj) 40 mg Q24H SQ Last administered on 12/04/16 04 :03; Start 12/04/16 at 04:00; Stop 12/04/16 at 04:10; Status DC Senna/Docusate Sodium (Jess-Colace) 1 tab BID PO Last administered on 08:00; Start 12/04/16 at 09:00 Magnesium Hydroxide (Milk Of Magnesia Liq) 30 ml Q12H PRN PO MILD - MODERATE CONSTIPATION; Start 12/04/16 at 03:45 Sennosides (Senokot) 17.2 mg Q12H PRN PO MODERATE - SEVERE CONSTIPATION; Start 12/04/16 at 03:45 Bisacodyl (Dulcolax Supp) 10 mg DAILY PRN RECTAL SEVERE CONSITIPATION; Start at 03:45 Lactulose 30 ml 30 ml DAILY PRN PO SEVERE CONSITIPATION Last administered on 17:20; Start 12/04/16 at 03:45 Piperacillin Sod/ Tazobactam Sod 100 ml @ 200 mls/hr Q6H IV Last administered on 12/05/16 11:43; Start 12/04/16 at 10:00; Stop 12/05/16 at 13:21; Status DC Pharmacy Profile Note 0 ml @ 0 mls/hr UNSCH OTHER ; Start 12/04/16 at 03:45; Stop 12/05/16 at 13:21; Status DC Vancomycin HCl/ Sodium Chloride (Vancomycin Inj/ NS 250 ml Inj) 250 ml @ 250 mls/hr Q12H IV ; Start 12/04/16 at 03:45; Stop 12/04/16 at 03:55; Status DC Albuterol Sulfate (Albuterol Neb) 2.5 mg ONCE NEB Last administered on 04:06; Start 12/04/16 at 03:45; Stop 12/04/16 at 04:30; Status DC Alendronate Sodium (Fosamax) 70 mg Q7D PO ; Start 12/04/16 at 03:45; Stop at 03:53; Status DC Cyanocobalamin (Vitamin B12) 500 mcg DAILY PO Last administered on 12/07/16 08 :44; Start 12/04/16 at 09:00 Fluticasone Propionate (Flovent Hfa 220 Mcg Inh) 1 puff BID INH Last administered on 12/07/16 19:16; Start 12/04/16 at 09:00 Folic Acid (Folate) 1 mg DAILY PO Last administered on 12/07/16 08:43; Start 12/04/16 at 09:00 Furosemide (Lasix) 40 mg BID PO Last administered on 12/07/16 19:16; Start 06/10 at 09:00 Gabapentin (Neurontin) 100 mg TID PO Last administered on 12/07/16 16:16; Start 12/04/16 at 09:00 Levothyroxine Sodium (Synthroid) 50 mcg DAILY@07 PO Last administered on 04:43; Start 12/04/16 at 07:00 Meclizine HCl (Antivert) 25 mg QID PRN PO VERTIGO; Start 12/04/16 at 03:45 Metoprolol Tartrate (Lopressor) 25 mg BID PO Last administered on 12/07/16 19: 16; Start 12/04/16 at 09:00 Potassium Chloride (KCl) 20 meq TID PO Last administered on 12/07/16 16:15; Start 12/04/16 at 09:00 Pravastatin Sodium (Pravachol) 20 mg HS PO Last administered on 12/07/16 19:17 ; Start 12/04/16 at 21:00 Warfarin Sodium (Coumadin) 4 mg DAILY@16 PO ; Start 12/04/16 at 16:00; Stop at 11:02; Status DC Pantoprazole Sodium (Protonix) 20 mg DAILY PO Last administered on 12/07/16 08 :43; Start 12/04/16 at 09:00 Multi-Ingredient Mouthwash/Gargle (Magic Mouthwash Adult Liq) 10 ml QID SWISH- SWAL Last administered on 12/05/16 11:43; Start 12/05/16 at 11:00; Stop at 13:22; Status DC Albuterol/ Ipratropium (Duoneb Neb) 1 ampule Q4HR NEB NEB Last administered on 12/08/16 05:21; Start 12/04/16 at 08:00 Albuterol/ Ipratropium (Duoneb Neb) 1 ampule Q2HR NEB PRN NEB SOB/WHEEZING; Start 12/04/16 at 06:00 Lactobacillus Acidophilus (Lactinex) 1 tab Q12HR PO Last administered on 19:16; Start 12/04/16 at 09:00 Oxycodone/ Acetaminophen 1 tab 1 tab Q8HR PRN PO BACK PAIN Last administered on 12/05/16 21:33; Start 12/04/16 at 08:15 Vancomycin HCl/ Sodium Chloride (Vancomycin Inj/ NS 250 ml Inj) 262.5 ml @ 262.5 mls/ hr Q24H IV Last administered on 12/04/16 23:58; Start 12/04/16 at 23:00; Stop 12/05/16 at 13:22; Status DC Miscellaneous Information SPECIFIC LAB TO BE KENA... ONCE ONCE .XX ; Start 12/06 at 22:45; Stop 12/06/16 at 22:46; Status Cancel Potassium Chloride (KCl 20 Meq Premix Inj) 100 ml @ 50 mls/hr Q2H IV Last administered on 12/05/16 06:23; Start 12/05/16 at 06:30; Stop 12/05/16 at 10:29 ; Status DC Potassium Chloride 20 meq 20 meq ONCE ONCE PO Last administered on 12/05/16 10:24; Start 12/05/16 at 10:15; Stop 12/05/16 at 10:16; Status DC Pharmacy Profile Note (Coumadin Consult Pharmacy) 0 ml @ 0 mls/hr UNSCH OTHER ; Start 12/05/16 at 11:00 Linezolid 600 mg 600 mg Q12HR PO Last administered on 12/06/16 08:01; Start at 13:30; Stop 12/06/16 at 12:50; Status DC Cefepime HCl/ Sodium Chloride (Maxipime Inj/NS Inj) 100 ml @ 200 mls/hr Q12H IV Last administered on 12/07/16 12:29; Start 12/05/16 at 14:00; Stop at 13:54; Status DC Warfarin Sodium (Coumadin) 2 mg DAILY@16 PO Last administered on 12/07/16 16: 15; Start 12/06/16 at 16:00 Calcium Carbonate (Oscal) 500 mg Q12HR PO Last administered on 12/07/16 19:16 ; Start 12/06/16 at 09:45 Patient Medication Teaching (Coumadin Booklet) 1 STK-MED ONCE .ROUTE Last administered on 12/06/16 16:06; Start 12/06/16 at 16:03; Stop 12/06/16 at 16:04 ; Status DC Potassium Chloride (KCl) 40 meq ONCE ONCE PO Last administered on 12/07/16 08 :59; Start 12/07/16 at 09:00; Stop 12/07/16 at 09:01; Status DC Levofloxacin (Levaquin) 500 mg DAILY@1500 PO Last administered on 12/07/16 16: 15; Start 12/07/16 at 15:00; Stop 12/14/16 at 14:59 A/P Assessment and Plan A/P AMS secondary to metabolic encephalopathy- resolved Sepsis due to Healthcare associated PNA; initially started on Cefepime which was later switched to po levaquin.blood cultures negative so far- previously d/w ; cleared for discharge per ID. hypokalemia:replaced. A Fib- rate controlled Continue Coumadin continue home medication metoprolol for rate control History of C- diff now on abx Lactobacillus BID watch for loose stools/diarrhea ulceration of oral mucosa Magic mouth wash pedal edema; venous doppler negative for DVT. Hypocalcemia: replaced hyperlipidemia; continue statin CHF - chronic diastolic- compensated; continue BB and diuretic. hypothyroidism - on levothyroxine DVT prophylaxis patient is on Coumadin with a therapeutic INR continue PT Discharge Planning dc to SNF today. f/u; pcp. see med list. d/w the patient and RN. previously d/w and case management. time spent 32 min. Tho Hart MD Dec 08, 2016 07:45
[2016-12-08] MEDS ORDERED: LEVA500T20 PO (07:47)
[2016-12-08] MEDS ORDERED: COUM2TAB PO (07:47)
--- NOTE | 2016-12-08 07:49 | HHI.DCPOC ---
Discharge Care Plan Diagnosis: (1) Pneumonia Additional Problems lung infection. Goals to Promote Your Health * To prevent worsening of your condition and complications * To maintain your health at the optimal level Directions to Meet Your Goals Take your medications as prescribed Follow your dietary instruction Follow activity as directed Keep your appointments as scheduled Take your immunizations and boosters as scheduled If your symptoms worsen call your PCP, if no PCP go to Urgent Care Center or Emergency Room Smoking is Dangerous to Your Health. Avoid second hand smoke Call the 24-hour hour crisis hotline for domestic abuse at hTo Hart MD Dec 08, 2016 07:48
--- NOTE | 2016-12-08 07:50 | HHI.DS ---
Discharge Summary Admission Date Dec 04, 2016 at 03:34 Discharge Date: Dec 08, 2016 Admitting Diagnosis Sepsis, PNA (1) Sepsis ICD Code: A41.9 Diagnosis: Principal (2) Pneumonia ICD Code: J18.9 Diagnosis: Principal (3) Encephalopathy ICD Code: G93.40 Diagnosis: Principal Procedures none Brief History - From Admission Written by Janessa Tamez, acting as scribe for Dr. Aguirre on 12/04/16 at 03 :58. This note was transcribed by scribRich HIGGINS. I, Dr. Jenn Aguirre personally performed the history, physical exam, and medical decision making; and confirmed the accuracy of the information in the transcribed note. Authenticated by Dr. Jenn Aguirre on 12/04/16 at 03:58. This is an 81 year old female patient with a past medical history which includes encephalopathy, carpal tunnel syndrome, thrombocytopenia, A. fib on Coumadin with INR 3.1, asthma, coronary artery disease, CHF, aortic stenosis s/ p bovine value replacement, AAA s/p repair, CAD s/p CABG, C. diff, hypertension , hypothyroidism, rheumatoid arthritis, chronic pain syndrome and peripheral neuropathy. Patient present to the ER from a SNF for evaluation of fever and altered mental status. Patient on arrival is confused and unable to provide meaningful information. Patient evaluated with daughter in the room. Information gathered form patient, daughter and prior computerized chart. Patient only complaint at this time is feeling tired. Patient reports that she had been so fatigued at intermediate facility if she was unable to get out of bed. Patient's daughter reports patient has not been herself for about a week and has had a, "mucous sounding," nonproductive cough for the past week. Patient also had nausea earlier in the week, but no vomiting Patient denies chest pain, SOB, vomiting, fevers chills diarrhea or constipation. Vital signs upon arrival include temp 103.1, HR 75, RR 18, BP 143/68, pulse oximetry on RA 98% CBC/BMP: 12/08/16 0331 12/08/16 0331 Significant Findings Laboratory Tests Test 12/06/16 12/07/16 12/08/16 05:23 05:45 03:31 Red Blood Count 3.75 MIL/MM3 3.98 MIL/MM3 3.80 MIL/MM3 (4.00-5.30) (4.00-5.30) (4.00-5.30) Platelet Count 125 TH/MM3 142 TH/MM3 140 TH/MM3 (150-450) (150-450) (150-450) Monocytes (%) (Auto) 11.3 % 11.3 % 15.3 % (0.0-8.0) (0.0-8.0) (0.0-8.0) Prothrombin Time 30.5 SEC 29.4 SEC 31.8 SEC (9.8-11.6) (9.8-11.6) (9.8-11.6) Calcium Level 7.4 MG/DL 7.7 MG/DL 7.8 MG/DL (8.5-10.1) (8.5-10.1) (8.5-10.1) Protein Corrected Calcium 7.9 MG/DL (8.5-10.1) Total Protein 6.2 GM/DL (6.4-8.2) Potassium Level 3.2 MEQ/L (3.5-5.1) Random Glucose 73 MG/DL 70 MG/DL (74-106) (74-106) Monocytes # (Auto) 1.0 TH/MM3 (0-0.9) Imaging Last Impressions Chest X-Ray 12/05/16 0000 Signed Impressions: Service Date/Time: Monday, December 05, 2016 13:43 - CONCLUSION: No evidence of acute cardiopulmonary process. Status post CABG. Status post vertebral body cement augmentation in the upper lumbar spine. Jefry Snyder MD Abdomen/Pelvis CT 12/04/16 0136 Signed Impressions: Service Date/Time: Sunday, December 04, 2016 02:46 - CONCLUSION: Right lower lobe pneumonia not present previously. Sabino Kearney MD Lower Extremity Ultrasound 12/04/16 0000 Signed Impressions: Service Date/Time: Sunday, December 04, 2016 08:24 - CONCLUSION: There generalized edema. There is no deep venous thrombosis. Manuelito Tolentino MD FACR Head CT 12/04/16 0000 Signed Impressions: Service Date/Time: Sunday, December 04, 2016 02:50 - CONCLUSION: Chronic and small vessel ischemic changes without any evidence for acute hemorrhage or mass effect and right maxillary sinusitis. . Sabino Kearney MD PE at Discharge GENERAL: elderly female , in no apparent distress. CARDIOVASCULAR: Regular rate and regular rhythm without murmurs, gallops, or rubs. RESPIRATORY: Clear to auscultation. Breath sounds equal bilaterally. No wheezes , rales, or rhonchi. GASTROINTESTINAL: Abdomen soft, non-tender, nondistended. Normal, active bowel sounds MUSCULOSKELETAL: Extremities with bilateral pedal edema. NEURO: Alert & Oriented x4 to person, place, time, situation. Moves all ext x4 Hospital Course AMS secondary to metabolic encephalopathy- resolved Sepsis due to Healthcare associated PNA; initially started on Cefepime which was later switched to po levaquin.blood cultures negative so far- previously d/w ; cleared for discharge per ID. hypokalemia:replaced. A Fib- rate controlled Continue Coumadin continue home medication metoprolol for rate control History of C- diff now on abx Lactobacillus BID watch for loose stools/diarrhea ulceration of oral mucosa Magic mouth wash pedal edema; venous doppler negative for DVT. Hypocalcemia: replaced hyperlipidemia; continue statin CHF - chronic diastolic- compensated; continue BB and diuretic. hypothyroidism - on levothyroxine DVT prophylaxis patient is on Coumadin with a therapeutic INR continue PT Pt Condition on Discharge: Fair Discharge Disposition: Discharge to SNF Discharge Time: > 30 minutes Discharge Instructions DIET: Follow Instructions for: Heart Healthy Diet Activities you can perform: Regular-No Restrictions Follow up Referrals: PCP Follow-up New Orders: PT/INR New Medications: Warfarin (Coumadin) 2 Mg Tab 2 MG PO DAILY Prevent Blood Clot #30 Ref 0 TAB Lactobacillus Acidophilus (Acidophilus/l-Sporogenes) 1 Tab Tab 1 TAB PO Q12HR probiotic Days 7 Ref 0 TAB Levofloxacin (Levaquin) 500 Mg Tablet 500 MG PO DAILY@1500 infection Days 7 Ref 0 TAB Changed Medications: Albuterol Neb (Albuterol Neb) 2.5 Mg/3 Ml Neb 2.5 MG NEB Q6HR PRN SHORTNESS OF BREATH Days 7 Ref 0 NEBULE (Changed from: ONCE ; Removed Quantity) Continued Medications: Alendronate (Fosamax) 70 Mg Tab 70 MG PO Q7D Osteoporosis Treatment #4 Ref 0 TAB Calcium Carbonate (Calcium Carbonate) 1,500 Mg Tab 1500 MG PO BID 1,500 mg calcium carbonate (600 mg elemental calcium) Calcium Supplement Ref 0 TAB Cyanocobalamin Odt (B-12 Dots) 500 Mcg Tab 500 MCG SL DAILY Nutritional Supplement #1 Ref 0 BOTTLE Fluticasone 12 GM Inh (Flovent Hfa 12 GM Inh) 220 Mcg/Act Inh 1 PUFF INH BID Use daily at the same time. Asthma Management #1 Ref 0 INHALER Folic Acid (Folic Acid) 400 Mcg Tab 1 MG PO DAILY Nutritional Supplement Ref 0 TAB Furosemide (Furosemide) 40 Mg Tab 40 MG PO BID #60 Ref 0 TAB Gabapentin (Gabapentin) 100 Mg Cap 100 MG PO TID #90 Ref 0 CAP Levothyroxine (Levothyroxine) 50 Mcg Tab 50 MCG PO DAILY Thyroid #30 Ref 0 TAB Meclizine (Meclizine) 25 Mg Tab 25 MG PO QID PRN VERTIGO Ref 0 TAB Methotrexate (Antirheumatic) (Rasuvo) 20 Mg/0.4 Ml Inj Metoprolol Tartrate (Metoprolol Tartrate) 25 Mg Tab 25 MG PO BID #60 Ref 0 TAB Omeprazole (Omeprazole) 20 Mg Tab 20 MG PO DAILY #30 Ref 0 TAB Potassium Chloride ER (Potassium Chloride ER) 20 Meq Tab 20 MEQ PO TID Electrolyte Replacement #30 Ref 0 TAB Pravastatin (Pravastatin) 20 Mg Tab 20 MG PO HS Cholesterol Management #30 Ref 0 TAB Discontinued Medications: Warfarin (Coumadin) 4 Mg Tab 4 MG PO DAILY Prevent Blood Clot #30 Ref 0 TAB Tho Hart MD Dec 08, 2016 07:49
[2016-12-08] MEDS ORDERED: ALBU0.08 NEB (07:53)
[2016-12-08] MEDS ORDERED: LACT PO (07:55)
[2016-12-08 08:00] VITALS: BP 129/73; PULSE 81; RESP 17; TEMP 98.6; O2SAT 97
[2016-12-08] MEDS: SODIUM CHLORIDE 0.9% FLUSH 10 ML FLUSH IV FLUSH SCH (09:00)
[2016-12-08] MEDS: GABAPENTIN 100 MG CAP PO SCH ×2 (09:30→12:13)
[2016-12-08] MEDS: CYANOCOBALAMIN 100 MCG TAB PO SCH (09:30)
[2016-12-08] MEDS: DOCUSATE SODIUM 50 MG/SENNA 8.6 MG TAB PO SCH (09:31)
[2016-12-08] MEDS: LACTOBACILLUS ACIDOPHILUS TAB PO SCH (09:31)
[2016-12-08] MEDS: FUROSEMIDE 40 MG TAB PO SCH (09:31)
[2016-12-08] MEDS: CALCIUM CARBONATE 1.25 GM (CA 500 MG) TAB PO SCH (09:31)
[2016-12-08] MEDS: METOPROLOL TARTRATE 25 MG TAB PO SCH (09:31)
[2016-12-08] MEDS: POTASSIUM CHLORIDE 20 MEQ CONTROLLED RELEASE TAB PO SCH ×2 (09:31→12:14)
[2016-12-08] MEDS: FOLIC ACID 1 MG TAB PO SCH (09:31)
[2016-12-08] MEDS: PANTOPRAZOLE SOD 20 MG DELAYED RELEASE TAB PO SCH (09:32)
[2016-12-08] MEDS: FLUTICASONE PROPIONATE 220 MCG/ACT 12 GM INHALER INH SCH (09:35)
[2016-12-08 12:00] VITALS: BP 112/74; PULSE 85; RESP 19; TEMP 97.8; O2SAT 98
[2016-12-08] MEDS: LEVOFLOXACIN 500 MG TAB PO SCH (14:33)
== END 2016-12-08 14:57 | DRG 871 ==
LOC: NEPC 01:27 → NEDA 03:34 → N07A 04:31
PROVIDERS: ADMIT Family Medicine; ATTEND Family Medicine
DX: A41.9 Sepsis, unspecified organism (principal); J18.9 Pneumonia, unspecified organism; G93.41 Metabolic encephalopathy; I11.0 Hypertensive heart disease with heart failure; I50.32 Chronic diastolic (congestive) heart failure; J44.0 Chronic obstructive pulmonary disease with (acute) lower respiratory infection; N39.0 Urinary tract infection, site not specified; G62.9 Polyneuropathy, unspecified; I48.91 Unspecified atrial fibrillation; M19.90 Unspecified osteoarthritis, unspecified site; J45.909 Unspecified asthma, uncomplicated; I25.10 Atherosclerotic heart disease of native coronary artery without angina pectoris; K21.9 Gastro-esophageal reflux disease without esophagitis; Z95.1 Presence of aortocoronary bypass graft; Z96.652 Presence of left artificial knee joint; Z87.891 Personal history of nicotine dependence; E03.9 Hypothyroidism, unspecified; Z79.01 Long term (current) use of anticoagulants; M06.9 Rheumatoid arthritis, unspecified; G89.4 Chronic pain syndrome; Y95 Nosocomial condition; E78.5 Hyperlipidemia, unspecified; E87.6 Hypokalemia; K12.1 Other forms of stomatitis; E83.51 Hypocalcemia; E66.9 Obesity, unspecified; M47.816 Spondylosis without myelopathy or radiculopathy, lumbar region; Z88.0 Allergy status to penicillin; Z95.3 Presence of xenogenic heart valve; Z95.5 Presence of coronary angioplasty implant and graft
CPT/HCPCS: 51702; 70450; 71010; 74177; 76937; 80048; 80053; 81001; 82550; 83605; 83690; 83735; 84100; 84155; 84484; 84702; 85025; 85610; 85730; 87040; 87086; 87449; 93005; 93970; 94640; 94664; J0692; J1650; J2405; J2543; J3370; J3480; J7030; J7050; J7613; Q9967

== ENCOUNTER 2017-01-05 10:43 | Inpatient (IN) | payer MEDICARE, OTHER ==
[~2017-01-05] VITALS: Ht 162.6 cm; Wt 92.8 kg
[2017-01-05] VITALS (15 sets, daily range): BP systolic 111–152; BP diastolic 57–83; PULSE 80–98; RESP 14–22; TEMP 98–99.3; O2SAT 96–100
[~2017-01-05 10:43] MED LIST changes: +ALBU0.08 NEB; -CALC1WAF PO; -CALC500T19 PO; +CALC600T4 PO; -CENTTAB8 PO; -CIPR-9 PO; -CIPR500T4 PO; +COUM2TAB PO; -COUM4TAB PO; -CYAN100017 PO; +FLUTI220I INH; -FOLI1 PO; +FOLI400T PO; -FOLI5CAP PO; -HYDR-3516 PO; -HYDR-3535 PO; +LACT PO; +LEVA500T20 PO; +METH0.35; -METH1INJ12 SQ; -METH50P SQ; -METO25 PO; -OMEP20TA39 PO; -POTA20IN3 PO; -PRAV20 PO; -WARF-20 PO; +[UNRECOGNIZED DRUG - CODE] SL
--- NOTE | 2017-01-05 11:09 | PD ---
HPI Chief Complaint: GI Complaint Time Seen by Provider: 11:06 Travel History International Travel<30 days: No Contact w/Intl Traveler<30days: No Traveled to known affect area: No History of Present Illness HPI 81-year-old female group home patient with multiple medical issues currently on Coumadin, presents to the ER today sent in by group home because patient states that yesterday she had made a large bowel movement and after that is having rectal pain and bleeding. She denies any chest pains, shortness of breath, vomiting, or any other symptoms. It appears that her Coumadin is currently on hold. Modifying Factors: None Associated Signs & Symptoms: Rectal bleeding Risk Factors: On Coumadin PFSH Past Medical History Hx Anticoagulant Therapy: Yes AAA: Yes Anemia: Yes Arthritis: Yes Asthma: Yes Atrial Fibrillation: Yes Autoimmune Disease: No Blood Disorders: No Anxiety: No Depression: No Heart Rhythm Problems: Yes Cancer: No Cardiovascular Problems: Yes Chemotherapy: No Congestive Heart Failure: Yes COPD: Yes Coronary Artery Disease: Yes Diabetes: No Diminished Hearing: Yes Endocrine: No Gastrointestinal Disorders: Yes (HX OF CDIFF) GERD: Yes Genitourinary: No Hepatitis: No Hiatal Hernia: Yes Hypertension: Yes Immune Disorder: Yes Implanted Vascular Access Dvce: No Musculoskeletal: No Neurologic: No Psychiatric: No Reproductive: Yes (hysterectomy) Respiratory: Yes Immunizations Current: Yes Radiation Therapy: No Thyroid Disease: No PNEUMOCCOCAL Vaccine (Year): 2006 ?: Not Menopausal: Yes : 0 Ovarian Cysts: Yes Past Surgical History Abdominal Aneurysm Repair: Yes Abdominal Surgery: Yes (AAA, cholesectomy) Appendectomy: Yes Cholecystectomy: Yes Coronary Artery Bypass Graft: Yes (X 5) Ear Surgery: No Endocrine Surgery: No Eye Surgery: No Genitourinary Surgery: No Gynecologic Surgery: Yes (hysterectomy) Hysterectomy: Yes Joint Replacement: Yes (L KNEE SURGERY , BACK SURGERY ) Oral Surgery: No Pacemaker: No Thoracic Surgery: Yes Other Surgery: Yes (NOSE ,HYSTERCTOMY, CHOLECYSTEC APENDECTOMY) Social History Alcohol Use: Yes (OCC) Tobacco Use: No (quit 19 years) Substance Use: No Allergies-Medications (Allergen,Severity, Reaction): Coded Allergies: Norvasc (Verified Allergy, Severe, redness "i look like hamburger meat", ) Penicillin (Verified Allergy, Severe, RASH / HIVES, 01/05/17) Spironolactone (Verified Allergy, Severe, hives, 01/05/17) HIVES/ITCHING Sulfa (Verified Allergy, Severe, SWELLING, 01/05/17) Reglan (Verified Allergy, Intermediate, 01/05/17) Erythromycin (Verified Allergy, Unknown, 01/05/17) Reported Meds & Prescriptions Reported Meds & Active Scripts Active Acidophilus/l-Sporogenes (Lactobacillus Acidophilus) 1 Tab Tab 1 Tab PO Q12HR 7 Days Albuterol Neb (Albuterol Sulfate) 2.5 Mg/3 Ml Neb 2.5 Mg NEB Q6HR PRN 7 Days Coumadin (Warfarin) 2 Mg Tab 2 Mg PO DAILY Reported Rasuvo (Methotrexate (Antirheumatic)) 20 Mg/0.4 Ml Inj Folic Acid 400 Mcg Tab 1 Mg PO DAILY Flovent Hfa 12 GM Inh (Fluticasone Propionate) 220 Mcg/Act Inh 1 Puff INH BID Use daily at the same time. B-12 Dots (Cyanocobalamin) 500 Mcg Tab 500 Mcg SL DAILY Calcium Carbonate 1,500 Mg Tab 1,500 Mg PO BID 1,500 mg calcium carbonate (600 mg elemental calcium) Meclizine (Meclizine HCl) 25 Mg Tab 25 Mg PO QID PRN Gabapentin 100 Mg Cap 100 Mg PO TID Omeprazole 20 Mg Tab 20 Mg PO DAILY Metoprolol Tartrate 25 Mg Tab 25 Mg PO BID Levothyroxine (Levothyroxine Sodium) 50 Mcg Tab 50 Mcg PO DAILY Pravastatin 20 Mg Tab 20 Mg PO HS Furosemide 40 Mg Tab 40 Mg PO BID Fosamax (Alendronate Sodium) 70 Mg Tab 70 Mg PO Q7D Potassium Chloride ER (Potassium Chloride) 20 Meq Tab 20 Meq PO TID Review of Systems Except as stated in HPI: all other systems reviewed are Neg Physical Exam Narrative GENERAL: Well-developed elderly white female patient currently in mild distress. Awake and oriented 3. SKIN: Focused skin assessment warm/dry. HEAD: Atraumatic. Normocephalic. EYES: Pupils equal and round. No scleral icterus. No injection or drainage. ENT: No nasal bleeding or discharge. Mucous membranes pink and moist. NECK: Trachea midline. No JVD. CARDIOVASCULAR: Regular rate and rhythm. No murmur appreciated. RESPIRATORY: No accessory muscle use. Clear to auscultation. Breath sounds equal bilaterally. GASTROINTESTINAL: Abdomen soft, non-tender, nondistended. Hepatic and splenic margins not palpable. RECTAL EXAM: No masses but there is notable tenderness with palpation of the right rectal area, I do not see an obvious area of bleeding but patient has maroon colored dark blood, Hemoccult-positive. MUSCULOSKELETAL: No obvious deformities. No clubbing. No cyanosis. No edema. NEUROLOGICAL: Awake and alert. No obvious cranial nerve deficits. Motor grossly within normal limits. Normal speech. PSYCHIATRIC: Appropriate mood and affect; insight and judgment normal. Data Data Last Documented VS Vital Signs Date Time Temp Pulse Resp B/P Pulse Ox O2 Delivery O2 Flow Rate FiO2 01/05/17 13:15 85 14 114/69 98 Room Air 01/05/17 10:53 99.3 Orders Complete Blood Count With Diff (01/05/17 11:06) Comprehensive Metabolic Panel (01/05/17 11:06) Prothrombin Time / Inr (Pt) (01/05/17 11:06) Act Partial Throm Time (Ptt) (01/05/17 11:06) Type And Screen (01/05/17 11:06) Ecg Monitoring (01/05/17 11:06) Iv Access Insert/Monitor (01/05/17 11:06) Oximetry (01/05/17 11:06) Pantoprazole Inj (Protonix Inj) (01/05/17 11:15) Sodium Chloride 0.9% Flush (Ns Flush) (01/05/17 11:15) Acetamin-Hydrocod 325-5 Mg ([place] 5-325 (01/05/17 12:15) Phytonadione (Mephyton) (01/05/17 12:15) Consult Colorectal Surgery (01/05/17 ) Cta Abdomen W Iv Contrast W 3d (01/05/17 ) (Hub Use Only)Inp Phy Cons/Ref (01/05/17 ) Admit Order (Ed Use Only) (01/05/17 13:45) Labs Laboratory Tests Test 01/05/17 11:30 White Blood Count 6.7 TH/MM3 Red Blood Count 3.00 MIL/MM3 Hemoglobin 9.8 GM/DL Hematocrit 29.7 % Mean Corpuscular Volume 98.9 FL Mean Corpuscular Hemoglobin 32.7 PG Mean Corpuscular Hemoglobin 33.0 % Concent Red Cell Distribution Width 15.2 % Platelet Count 84 TH/MM3 Mean Platelet Volume 9.3 FL Neutrophils (%) (Auto) 68.8 % Lymphocytes (%) (Auto) 22.1 % Monocytes (%) (Auto) 7.3 % Eosinophils (%) (Auto) 1.1 % Basophils (%) (Auto) 0.7 % Neutrophils # (Auto) 4.6 TH/MM3 Lymphocytes # (Auto) 1.5 TH/MM3 Monocytes # (Auto) 0.5 TH/MM3 Eosinophils # (Auto) 0.1 TH/MM3 Basophils # (Auto) 0.0 TH/MM3 CBC Comment AUTO DIFF Differential Comment AUTO DIFF CONFIRMED Prothrombin Time 21.4 SEC Prothromb Time International 1.9 RATIO Ratio Activated Partial 27.3 SEC Thromboplast Time Sodium Level 137 MEQ/L Potassium Level 3.7 MEQ/L Chloride Level 101 MEQ/L Carbon Dioxide Level 29.0 MEQ/L Anion Gap 7 MEQ/L Blood Urea Nitrogen 16 MG/DL Creatinine 0.65 MG/DL Estimat Glomerular Filtration 87 ML/MIN Rate Random Glucose 96 MG/DL Calcium Level 8.2 MG/DL Total Bilirubin 0.5 MG/DL Aspartate Amino Transf 36 U/L (AST/SGOT) Alanine Aminotransferase 21 U/L (ALT/SGPT) Alkaline Phosphatase 96 U/L Total Protein 6.4 GM/DL Albumin 2.4 GM/DL Blood Type O POSITIVE Antibody Screen NEGATIVE MDM Medical Decision Making Medical Screen Exam Complete: Yes Emergency Medical Condition: Yes Medical Record Reviewed: Yes Interpretation(s) Laboratory Tests Test 01/05/17 11:30 Red Blood Count 3.00 MIL/MM3 (4.00-5.30) Hemoglobin 9.8 GM/DL (11.6-15.3) Hematocrit 29.7 % (35.0-46.0) Platelet Count 84 TH/MM3 (150-450) Prothrombin Time 21.4 SEC (9.8-11.6) Estimat Glomerular Filtration 87 ML/MIN (>89) Rate Calcium Level 8.2 MG/DL (8.5-10.1) Albumin 2.4 GM/DL (3.4-5.0) Differential Diagnosis Rectal bleedinganal tear versus hemorrhoid versus GI bleed Narrative Course She is obviously having bleeding with Hemoccult-positive stools. At this point , her INR is somewhat elevated as well and her H&H has dropped. She is given medications to help with rectal pain. We will need to watch her H&H. Case was discussed with Dr. Butler who knows her well and states that he has removed cecal polyps from her in the past. He states that he would like to get a CT a of the abdomen for further evaluation and states she will follow. She was given vitamin K for reversal of her Coumadin, INR is elevated. Planning to admit for further treatment. Case is discussed with Dr. Carlos for admission. HemaPrompt Point of Care Internal Pos. & Neg. Controls: Passed Fecal Specimen Occult Blood: Positive Diagnosis Primary Impression: Rectal bleeding Admitting Information Admitting Physician Requests: Admit Sandrine Montes MD Jan 05, 2017 11:09
[2017-01-05] MEDS ORDERED: SODIUM CHLORIDE 0.9% FLUSH 10 ML FLUSH IVF PRN (11:15)
[2017-01-05] MEDS ORDERED: PANTOPRAZOLE SODIUM 40 MG VIAL IVP ONE (11:15)
[2017-01-05 11:48] LABS: AUTOMATED NEUTROPHIL # 4.6 TH/MM3 (1.8-7.7); BASOPHIL % 0.7 % (0.0-2.0); EOSINOPHIL # 0.1 TH/MM3 (0-0.4); EOSINOPHIL % 1.1 % (0.0-4.0); HEMATOCRIT 29.7 % (35.0-46.0); LYMPH % 22.1 % (9.0-44.0); LYMPHOCYTE # 1.5 TH/MM3 (1.0-4.8); MEAN CELL VOLUME 98.9 FL (80.0-100.0); MEAN CORPUSCULAR HEMOGLOBIN 32.7 PG (27.0-34.0); MONO % 7.3 % (0.0-8.0); NEUT % 68.8 % (16.0-70.0); PLATELET COUNT 84 TH/MM3 (150-450); RED CELL DISTRIBUTION WIDTH 15.2 % (11.6-17.2); WHITE BLOOD COUNT 6.7 TH/MM3 (4.0-11.0)
[2017-01-05 11:51] LABS: HEMO FLAGS AUTO DIFF
[2017-01-05 11:56] LABS: APTT (PATIENT) 27.3 SEC (24.3-30.1); INTERNATIONAL NORMALIZED RATIO 1.9 RATIO; PROTHROMBIN TIME - PATIENT 21.4 SEC (9.8-11.6)
[2017-01-05 12:02] LABS: ALT (GPT) 21 U/L (10-53); ANION GAP 7 MEQ/L (5-15); AST (GOT) 36 U/L (15-37); BLOOD UREA NITROGEN 16 MG/DL (7-18); CHLORIDE 101 MEQ/L (98-107); GLOMERULAR FILTRATION RATE 87 ML/MIN (>89); POTASSIUM 3.7 MEQ/L (3.5-5.1); SODIUM (NA) 137 MEQ/L (136-145)
[2017-01-05 12:05] LABS: ALKALINE PHOSPHATASE 96 U/L (45-117); TOTAL BILIRUBIN ADULT 0.5 MG/DL (0.2-1.0)
[2017-01-05] MEDS ORDERED: ACETAMINOPHEN/HYDROcodone 325 MG/5 MG TAB PO ONE (12:15)
[2017-01-05] MEDS ORDERED: PHYTONADIONE 5 MG TAB PO ONE (12:15)
[2017-01-05 12:16] LABS: SCAN/DIFF AUTO DIFF CONFIRMED
[2017-01-05] MEDS ORDERED: NALOXONE HCL 0.4 MG/ML AMP IV PRN (14:30)
[2017-01-05] MEDS ORDERED: ONDANSETRON HCL 4 MG/2 ML VIAL IVP PRN (14:30)
[2017-01-05] MEDS ORDERED: SODIUM CHLORIDE 0.9% FLUSH 10 ML FLUSH IV FLUSH PRN (14:30)
[2017-01-05] MEDS ORDERED: ACETAMINOPHEN 325 MG TAB PO PRN ×2 (14:30)
[2017-01-05] MEDS ORDERED: RESP: ALBUTEROL 2.5 MG/IPRATROPIUM 0.5 MG NEB (PRN) NEB (14:30)
--- NOTE | 2017-01-05 14:41 | HHI.HP ---
[facility] Arpit Archer MD Admission Diagnosis rectal bleed/elevated INR Diagnoses: Chief Complaint: Bright red blood per rectum Travel History International Travel<30 Days: No Contact w/Intl Traveler <30 Da: No Traveled to Known Affected Are: No History of Present Illness The patient is an 81-year-old female with a past medical history of CAD status post CABG and aortic valve replacement who is presenting to the hospital with bright red blood per rectum. The patient said that as a period for about 4 days and received to read pills which resulted in a large bowel movement the size of the potato. Shortly thereafter she started having bloody stools continuously. She said she has been bleeding for about 2 days at her [place] [facility] and was finally brought to the hospital today. She also mentions that she had methotrexate reintroduced to her medical regimen on Sunday, which is the day that her bleeding started. She said she has felt dizzy a couple of days ago but currently does not have any dizziness to complain about. She says her belly hurts her at times. She says she is currently incapable of having a bowel movement and simply produces blood from the rectum. She mentions she has never had a colonoscopy before. She also mentions that she had C. difficile for 2 years straight. The patient denies taking ibuprofen or Aleve. She does not drink alcohol anymore. Review of Systems Except as stated in HPI: all other systems reviewed are Neg Past Family Social History Past Medical History Carpal tunnel syndrome A. fib Asthma Coronary artery disease s/p CABG CHF Aortic stenosis s/p bovine value replacement C. diff PNA Hypertension Hypothyroidism Rheumatoid arthritis Osteoarthritis Chronic pain syndrome Peripheral neuropathy Spinal fusion Allergies: Coded Allergies: Norvasc (Verified Allergy, Severe, redness "i look like hamburger meat", ) Penicillin (Verified Allergy, Severe, RASH / HIVES, 01/05/17) Spironolactone (Verified Allergy, Severe, hives, 01/05/17) HIVES/ITCHING Sulfa (Verified Allergy, Severe, SWELLING, 01/05/17) Reglan (Verified Allergy, Intermediate, 01/05/17) Erythromycin (Verified Allergy, Unknown, 01/05/17) Active Ordered Medications Current Medications Medications (Trade) Dose Ordered Sig/Jair Route Start Time Stop Time Status Last Admin (NS Flush) 2 ml UNSCH PRN IVF 01/05/17 11:15 Family History DM Liver disease Social History Quit smoking a long time ago. She does not drink anymore. Physical Exam Vital Signs Vital Signs Date Time Temp Pulse Resp B/P Pulse Ox O2 Delivery O2 Flow Rate FiO2 01/05/17 13:15 85 14 114/69 98 Room Air 01/05/17 11:10 98 Room Air 01/05/17 10:53 99.3 80 22 125/64 96 Physical Exam GENERAL: This is a well-nourished, well-developed patient, in no apparent distress. SKIN: Pale skin. HEAD: Atraumatic. Normocephalic. No temporal or scalp tenderness. EYES: Pupils equal round and reactive. Extraocular motions intact. No scleral icterus. No injection or drainage. ENT: Nose without bleeding, purulent drainage or septal hematoma. Throat without erythema, tonsillar hypertrophy or exudate. Uvula midline. Airway patent. NECK: Trachea midline. No JVD or lymphadenopathy. Supple, nontender, no meningeal signs. CARDIOVASCULAR: Tachycardic, irregularly irregular. RESPIRATORY: Clear to auscultation. Breath sounds equal bilaterally. No wheezes , rales, or rhonchi. GASTROINTESTINAL: Abdomen soft, tender to palpation, nondistended. No hepato- splenomegaly, or palpable masses. No guarding. Copious amount of blood and clots coming from rectum. MUSCULOSKELETAL: Extremities without clubbing, cyanosis, or edema. No joint tenderness, effusion, or edema noted. NEUROLOGICAL: Awake and alert. Cranial nerves II through XII intact. Motor and sensory grossly within normal limits. Five out of 5 muscle strength in all muscle groups. Normal speech. PSYCH: Mood and affect appropriate. Laboratory Laboratory Tests Test 01/05/17 11:30 White Blood Count 6.7 Red Blood Count 3.00 Hemoglobin 9.8 Hematocrit 29.7 Mean Corpuscular Volume 98.9 Mean Corpuscular Hemoglobin 32.7 Mean Corpuscular Hemoglobin 33.0 Concent Red Cell Distribution Width 15.2 Platelet Count 84 Mean Platelet Volume 9.3 Neutrophils (%) (Auto) 68.8 Lymphocytes (%) (Auto) 22.1 Monocytes (%) (Auto) 7.3 Eosinophils (%) (Auto) 1.1 Basophils (%) (Auto) 0.7 Neutrophils # (Auto) 4.6 Lymphocytes # (Auto) 1.5 Monocytes # (Auto) 0.5 Eosinophils # (Auto) 0.1 Basophils # (Auto) 0.0 CBC Comment AUTO DIFF Differential Comment AUTO DIFF CONFIRMED Prothrombin Time 21.4 Prothromb Time International 1.9 Ratio Activated Partial 27.3 Thromboplast Time Sodium Level 137 Potassium Level 3.7 Chloride Level 101 Carbon Dioxide Level 29.0 Anion Gap 7 Blood Urea Nitrogen 16 Creatinine 0.65 Estimat Glomerular Filtration 87 Rate Random Glucose 96 Calcium Level 8.2 Total Bilirubin 0.5 Aspartate Amino Transf 36 (AST/SGOT) Alanine Aminotransferase 21 (ALT/SGPT) Alkaline Phosphatase 96 Total Protein 6.4 Albumin 2.4 Blood Type O POSITIVE Antibody Screen NEGATIVE Result Diagram: 01/05/17 1130 01/05/17 1130 Assessment and Plan Assessment and Plan BRBPR/ Acute blood loss anemia The patient has been losing blood from her rectum for the past 2 days. She had a large bowel movement that led up to it but she also received an injection of methotrexate the day it started. She is on Coumadin for an artificial aortic valve. She denies taking any NSAIDs or drinking alcohol. She denies any history of previous ulcers. Hemoglobin is 9.8 on presentation which is down from 12.6 several months ago. She received vitamin K and IV Protonix in the emergency department. She is currently hemorrhaging significant amounts of blood with clots from her rectum. - IV fluids. - Protonix drip. - 2 units of red blood cells stat. - Colorectal surgery has been consulted. Will follow recommendations. CT has been ordered. - Transfer patient to intensive care unit for closer monitoring and care as patient has potential to become very unstable very quickly. - Follow CBC every 6 hours. Thrombocytopenia Likely s/t methotrexate therapy. - follow CBC and transfuse platelets as needed in the setting of GIB. Aortic valve replacement/ A fib On Coumadin. Vitamin K was given. HR controlled. - d/c Coumadin in the setting of massive GI bleeding. - consult cardiology if needed. RA/ OA On methotrexate and chronic pain control. - d/c methotrexate. - pain control as needed. Asthma On Flovent. Has a history of smoking. - continue Flovent. - nebs as needed. PPx: SCDs Code Status DNR Discussed Condition With Pt, pt's family, Dr. Akhtar Physician Certification 2 Midnight Certification Type: Admission for Inpatient Services Order for Inpatient Services The services are ordered in accordance with Medicare regulations or non- Medicare payer requirements, as applicable. In the case of services not specified as inpatient-only, they are appropriately provided as inpatient services in accordance with the 2-midnight benchmark. Estimated LOS (days): 2 days is the estimated time the patient will need to remain in the hospital, assuming treatment plan goals are met and no additional complications. Post-Hospital Plan: Not yet determined Luis A Leblanc DO Jan 05, 2017 14:41
[2017-01-05] MEDS: PANTOPRAZOLE INJ 80 MG in SODIUM CHLORIDE 0.9% INJ 100 ML IV SCH (15:25)
[2017-01-05] MEDS ORDERED: IOHEXOL 350 MG/ML 10 ML VIAL (for RAD DIAG) IV ONE (18:15)
[2017-01-05] MEDS: SODIUM CHLOR 0.9% 1000 ML INJ 1,000 ML IV SCH ×2 (18:30→22:14)
[2017-01-05 19:27] LABS: MEAN CELL VOLUME 96.2 FL (80.0-100.0); MEAN CORPUSCULAR HEMOGLOBIN 33.2 PG (27.0-34.0); MEAN CORPUSCULAR HGB CONC 34.5 % (32.0-36.0); PLATELET COUNT 66 TH/MM3 (150-450); WHITE BLOOD COUNT 5.7 TH/MM3 (4.0-11.0)
--- NOTE | 2017-01-05 19:28 | RADRPT ---
EXAM DATE/TIME: 01/05/2017 17:54 [facility] COMPARISON: CT ABDOMEN & PELVIS W CONTRAST, December 04, 2016, 2:46. INDICATIONS : Rectal bleeding today. IV CONTRAST: 75 cc Omnipaque 350 (iohexol) IV RADIATION DOSE: 7.30 CTDIvol (mGy) MEDICAL HISTORY : Cardiovascular disease. Congestive heart failure. Aneurysm, abdominal.hypertension SURGICAL HISTORY : Cholecystectomy. [address] heart bypass. ENCOUNTER: Initial ACUITY: 1 day PAIN SCALE: 3/10 LOCATION: Bilateral lower abdomen pain. TECHNIQUE: Volumetric scanning was performed using a multi-row detector CT scanner. The data was post processed with a variety of visualization algorithms including full volume maximum intensity projection, multi -planar sliding thin slab reformation, curved planar reformation, and surface rendering techniques. Using automated exposure control and adjustment of the mA and/or kV according to patient size, radiat ion dose was kept as low as reasonably achievable to obtain optimal diagnostic quality images. DICOM format image data is available electronically for review and comparison. FINDINGS: There is diffuse atherosclerosis. Patient has had previous abdominal aortic aneurysm repair with aort oiliac stent graft placement. No evidence of leak or aortoenteric fistula. Moderate diverticulosis seen of the sigmoid colon. No acute inflammatory changes are demonstrate d. Previous cholecystectomy. CONCLUSION: Previous aortoiliac stent graft placement. Diffuse atherosclerotic plaque. No acute complication demo nstrated. Braydon Macias MD on January 05, 2017 at 19:24 Board Certified Radiologist. This report was verified electronically.
[2017-01-05 20:06] LABS: REVIEW FLAG FINAL
[2017-01-05] MEDS: FLUTICASONE PROPIONATE 220 MCG/ACT 12 GM INHALER INH SCH (20:54)
[2017-01-05] MEDS: SODIUM CHLORIDE 0.9% FLUSH 10 ML FLUSH IV FLUSH SCH (20:54)
[2017-01-05] MEDS ORDERED: CHLORHEXIDINE GLUCONATE 2 % 1 PACK (2 CLOTHS)(extra cloths) TOPICAL PRN (23:45)
[2017-01-06] VITALS (22 sets, daily range): BP systolic 99–159; BP diastolic 51–113; PULSE 73–98; RESP 10–23; TEMP 98.5–99.2; O2SAT 94–99
[2017-01-06] MEDS: PANTOPRAZOLE INJ 80 MG in SODIUM CHLORIDE 0.9% INJ 100 ML IV SCH ×3 (00:01→21:41)
[2017-01-06] MEDS: CHLORHEXIDINE GLUCONATE 2 % 1 PACK (2 CLOTHS)(taper/protocol) TOPICAL SCH (00:01)
--- NOTE | 2017-01-06 00:05 | MB ---
cc: JENNY GAFFNEY M.D. DATE OF CONSULTATION January 05, 2017 REASON FOR CONSULTATION Rectal bleeding, anemia. HISTORY OF PRESENT ILLNESS Ms. Benites is an 81-year-old female with complicated medical history consisting of coronary artery disease status post coronary bypass and aortic valve placement as well as aortic stent placement. The patient was last seen in my office many years ago with colonoscopy and was pretty unremarkable except for diverticulosis. The patient had been constipated for several days prior to admission and took some stool softeners which resulted in a very large bowel movement. Shortly afterwards she began having some bright red blood per rectum which has continued for the last several days. Most of it has been bright red but lately the blood has become a little darker and a little more maroon. She has been a little dizzy but no syncope has been documented. Denies any abdominal pain or distension. She has not had any further stools. Denies any nausea, vomiting. No fever. Possibility of C. Diff several years ago. Denies any melena. Appetite has been only fair and she is unsure about her weight loss. PAST MEDICAL HISTORY Significant for atrial fib, coronary artery disease, aortic valve replacement, hypertension, rheumatoid arthritis. MEDICATIONS See admitting list, including Coumadin. ALLERGIES SEE ADMITTING LIST. SOCIAL HISTORY No history of colorectal cancer. The patient did smoke many years ago but none presently. Denies any significant alcohol intake presently. PERTINENT PHYSICAL GENERAL: Very pleasant older female in no acute distress. HEENT: Remarkable for somewhat pale dry membranes, nonicteric sclera. NECK: Neck was a little stiff without adenopathy. CHEST: Relatively clear, symmetrical expanding. HEART: The heart had a slightly irregular rhythm. ABDOMEN: Very soft and flat, little tympanic but not really distended. No rebound or guarding or any masses noted. ANAL INSPECTION: Revealed blood on the anal skin. Grade 2 hemorrhoids, not much prolapse. No obvious fissures or fistula but the exam was difficult due to the patient's size and bloody fluid. Digital exam revealed some tenderness but no masses, empty rectal vault with some bloody fluid on the finger. EXTREMITIES: No cyanosis or clubbing and 1-2+ pedal edema. LABORATORY FINDINGS White count was 6.7, hemoglobin down to 9.8, hematocrit 29.7, platelet count was 84,000. INR was 1.9. Liver functions were pretty unremarkable with a normal bilirubin and liver enzymes. BUN, creatinine were unremarkable. IMPRESSION An 81-year-old female with multiple medical problems on anticoagulation for cardiac disease, presents with significant rectal bleeding. Appears to be more than coming from the anal canal, however, with anticoagulation and low platelets it could be from an anal tear. The patient has not bled since she came back to the emergency room from her CT scan. Reviewed the CTA with the radiologist and no active bleeding was seen at the time of the scan. At this point would hold her anticoagulation cautiously and follow her H&H. If she continues to stabilize she may need to be treated with heparin or Lovenox if the heart valve requires some anticoagulation. She may also require platelet transfusion if her platelet count drops much lower and the bleeding persists. The patient is obviously elderly and has multiple medical problems and would not be a good surgical candidate, possibly interventional radiology could be contacted if she continues to bleed for consideration of an arteriogram and embolization of the bleeding site. MD MYRNA Bolivar/JENNIFER /11:40 PM /11:53 PM
[2017-01-06 00:16] LABS: HEMATOCRIT 27.9 % (35.0-46.0); MEAN CELL VOLUME 97.6 FL (80.0-100.0); MEAN CORPUSCULAR HEMOGLOBIN 32.8 PG (27.0-34.0); MEAN CORPUSCULAR HGB CONC 33.6 % (32.0-36.0); PLATELET COUNT 69 TH/MM3 (150-450); RED BLOOD COUNT 2.86 MIL/MM3 (4.00-5.30); RED CELL DISTRIBUTION WIDTH 18.1 % (11.6-17.2); WHITE BLOOD COUNT 5.4 TH/MM3 (4.0-11.0)
[2017-01-06 00:17] LABS: REVIEW FLAG FINAL
[2017-01-06] MEDS: FLUTICASONE PROPIONATE 220 MCG/ACT 12 GM INHALER INH SCH ×2 (08:40→21:41)
[2017-01-06] MEDS: SODIUM CHLOR 0.9% 1000 ML INJ 1,000 ML IV SCH (08:41)
--- NOTE | 2017-01-06 09:54 | HHI.PR ---
Subjective Remarks The pt was complaining of back pain from the bed. She had no abdominal pain. Family at the bedside and their questions were answered. The pt says she follows with Dr. Salgado from hematology. She is not sure who her forging engineer is. Discussed with nursing. Objective Vitals Vital Signs Date Time Temp Pulse Resp B/P Pulse Ox O2 Delivery O2 Flow Rate FiO2 01/06/17 07:16 94 21 01/06/17 06:00 87 01/06/17 04:00 84 01/06/17 04:00 98.8 84 22 147/63 95 01/06/17 02:00 84 01/06/17 00:00 86 01/06/17 00:00 99.0 86 21 140/63 97 01/05/17 22:00 91 01/05/17 20:00 91 01/05/17 20:00 98.7 91 20 152/67 97 01/05/17 18:10 98.3 90 16 147/82 97 Room Air 01/05/17 16:25 98.4 93 16 129/75 97 Room Air 01/05/17 16:20 98.0 95 16 111/57 97 Room Air 01/05/17 16:15 98.2 96 16 127/58 97 Room Air 01/05/17 16:10 98.2 94 16 126/62 98 Room Air 01/05/17 15:00 98 16 128/66 100 Room Air 01/05/17 13:15 85 14 114/69 98 Room Air 01/05/17 11:10 98 Room Air 01/05/17 10:53 99.3 80 22 125/64 96 I/O 01/05/17 01/05/17 01/05/17 01/06/17 01/06/17 01/06/17 07:00 15:00 23:00 07:00 15:00 23:00 Intake Total 864 ml 1281 ml Output Total 300 ml Balance 564 ml 1281 ml Intake IV Total 614 ml 1281 ml Packed Cells 250 ml Output Stool Total 300 ml # Voids 1 1 1 # Bowel Movements 1 2 Result Diagram: 01/05/17 2330 01/05/17 1130 Imaging Last Impressions Abdomen/Pelvis CT 01/05/17 0000 Signed Impressions: Service Date/Time: Thursday, January 05, 2017 17:54 - CONCLUSION: Previous aortoiliac stent graft placement. Diffuse atherosclerotic plaque. No acute complication demonstrated. Braydon Macias MD Objective Remarks GENERAL: This is a well-nourished, well-developed patient, in no apparent distress. SKIN: Pale skin. HEAD: Atraumatic. Normocephalic. No temporal or scalp tenderness. EYES: Pupils equal round and reactive. Extraocular motions intact. No scleral icterus. No injection or drainage. ENT: Nose without bleeding, purulent drainage or septal hematoma. Throat without erythema, tonsillar hypertrophy or exudate. Uvula midline. Airway patent. NECK: Trachea midline. No JVD or lymphadenopathy. Supple, nontender, no meningeal signs. CARDIOVASCULAR: Irregularly irregular. RESPIRATORY: Clear to auscultation. Breath sounds equal bilaterally. No wheezes , rales, or rhonchi. GASTROINTESTINAL: Abdomen soft, tender to palpation in the lower quadrants, nondistended. No hepato-splenomegaly, or palpable masses. No guarding. MUSCULOSKELETAL: Extremities without clubbing, cyanosis, or edema. No joint tenderness, effusion, or edema noted. NEUROLOGICAL: Awake and alert. Cranial nerves II through XII intact. Motor and sensory grossly within normal limits. Five out of 5 muscle strength in all muscle groups. Normal speech. PSYCH: Mood and affect appropriate. Medications and IVs Current Medications Medications (Trade) Dose Ordered Sig/Jair Route Start Time Stop Time Status Last Admin (Protonix Inj/NS Inj) 100 ml @ 10 mls/hr Q10H IV 01/05/17 15:30 01/06/17 00:01 (Flovent Hfa 220 Mcg Inh) 1 puff BID INH 01/05/17 21:00 01/06/17 08:40 Levothyroxine Sodium 50 mcg 50 mcg DAILY PO 01/06/17 09:00 (NS 1000 ml Inj) 1,000 ml @ 100 mls/hr Q10H IV 01/05/17 14:25 01/06/17 08:41 (NS Flush) 2 ml UNSCH PRN IV FLUSH 01/05/17 14:30 (NS Flush) 2 ml BID IV FLUSH 01/05/17 21:00 (Tylenol) 650 mg Q4H PRN PO 01/05/17 14:30 (Zofran Inj) 4 mg Q6H PRN IVP 01/05/17 14:30 (Tylenol) 650 mg Q6H PRN PO 01/05/17 14:30 (Roxicodone) 5 mg Q4H PRN PO 01/05/17 14:30 (Narcan Inj) 0.4 mg UNSCH PRN IV 01/05/17 14:30 Miscellaneous Information Patient in critical care unit? Ass... [id number] .XX 01/05/17 23:45 (Chlorhexidine 2% Cloth) 3 pack DAILY@04 TOPICAL 01/06/17 04:00 01/10/17 04:01 01/06/17 00:01 (Chlorhexidine 2% Cloth) 3 pack UNSCH PRN TOPICAL 01/05/17 23:45 01/10/17 23:39 A/P Assessment and Plan BRBPR/ Acute blood loss anemia The patient has been losing blood from her rectum for the past 2 days. She had a large bowel movement that led up to it but she also received an injection of methotrexate the day it started. She is on Coumadin for an artificial aortic valve. She denies taking any NSAIDs or drinking alcohol. She denies any history of previous ulcers. Hemoglobin is 9.8 on presentation which is down from 12.6 several months ago. She received vitamin K and IV Protonix in the emergency department. She received one unit of red blood cells. Bleeding has improved overnight. Colorectal surgery consult appreciated. CT unremarkable. - decrease IV fluids. - continue Protonix drip. - Follow CBC every 6 hours. AM labs still pending. Thrombocytopenia Likely s/t methotrexate therapy. Count has been decreasing. - follow CBC and transfuse platelets as needed in the setting of GIB. - consult hematology. Aortic valve replacement/ A fib On Coumadin. Vitamin K was given. HR controlled. - d/c Coumadin in the setting of massive GI bleeding. - consult hematology for guidance with anticoagulation. RA/ OA On methotrexate and chronic pain control. - d/c methotrexate. - pain control as needed. - continue folic acid. Asthma On Flovent. Has a history of smoking. - continue Flovent. - nebs as needed. HTN Blood pressure meds on hold. - Vasotec as needed. PPx: SCDs; PPI Discharge Planning Possible transfer to floor if remains stable Luis A Leblanc DO Jan 06, 2017 09:54
[2017-01-06] MEDS: SODIUM CHLORIDE 0.9% FLUSH 10 ML FLUSH IV FLUSH SCH ×2 (10:20→21:00)
[2017-01-06] MEDS: LEVOTHYROXINE SODIUM 50 MCG TAB PO SCH (10:20)
[2017-01-06 10:59] LABS: HEMATOCRIT 26.4 % (35.0-46.0); MEAN CELL VOLUME 98.2 FL (80.0-100.0); MEAN CORPUSCULAR HEMOGLOBIN 33.4 PG (27.0-34.0); PLATELET COUNT 70 TH/MM3 (150-450); RED BLOOD COUNT 2.68 MIL/MM3 (4.00-5.30); RED CELL DISTRIBUTION WIDTH 17.9 % (11.6-17.2); REVIEW FLAG FINAL
[2017-01-06 11:06] LABS: INTERNATIONAL NORMALIZED RATIO 1.3 RATIO; PROTHROMBIN TIME - PATIENT 14.5 SEC (9.8-11.6)
[2017-01-06 11:30] LABS: BICARBONATE 25.1 MEQ/L (21.0-32.0); CALCIUM-PROTEIN CORRECTED 7.9 MG/DL (8.5-10.1); TOTAL BILIRUBIN ADULT 0.7 MG/DL (0.2-1.0)
[2017-01-06] MEDS: FOLIC ACID 1 MG TAB PO SCH (13:16)
[2017-01-06 16:04] LABS: C. DIFF EPI 027 PRESUMPTIVE NEGATIVE (NEGATIVE)
[2017-01-06] MEDS: POTASSIUM CHLOR 20 MEQ PREMIX 100 ML IV SCH ×2 (16:10→18:26)
[2017-01-06 16:25] LABS: HEMATOCRIT 21.6 % (35.0-46.0); MEAN CORPUSCULAR HEMOGLOBIN 33.1 PG (27.0-34.0); MEAN CORPUSCULAR HGB CONC 34.2 % (32.0-36.0); PLATELET COUNT 67 TH/MM3 (150-450); RED BLOOD COUNT 2.22 MIL/MM3 (4.00-5.30); RED CELL DISTRIBUTION WIDTH 17.5 % (11.6-17.2); WHITE BLOOD COUNT 4.5 TH/MM3 (4.0-11.0)
[2017-01-06 16:28] LABS: C. DIFF TOXIN PCR POSITIVE (NEGATIVE)
[2017-01-06 16:30] LABS: REVIEW FLAG FINAL
[2017-01-06 21:07] LABS: HEMATOCRIT 24.9 % (35.0-46.0); MEAN CELL VOLUME 98.5 FL (80.0-100.0); MEAN CORPUSCULAR HEMOGLOBIN 32.5 PG (27.0-34.0); PLATELET COUNT 78 TH/MM3 (150-450); RED BLOOD COUNT 2.52 MIL/MM3 (4.00-5.30); RED CELL DISTRIBUTION WIDTH 17.7 % (11.6-17.2); WHITE BLOOD COUNT 4.6 TH/MM3 (4.0-11.0)
[2017-01-06 21:43] LABS: REVIEW FLAG FINAL
[2017-01-06 21:44] LABS: BICARBONATE 26.3 MEQ/L (21.0-32.0); POTASSIUM 3.7 MEQ/L (3.5-5.1)
[2017-01-06 21:56] LABS: CALCIUM-PROTEIN CORRECTED 7.9 MG/DL (8.5-10.1)
[2017-01-07] VITALS (23 sets, daily range): BP systolic 109–187; BP diastolic 53–99; PULSE 78–111; RESP 8–26; TEMP 97.8–98.8; O2SAT 95–98
[2017-01-07] MEDS: SODIUM CHLOR 0.9% 1000 ML INJ 1,000 ML IV SCH (03:44)
[2017-01-07] MEDS: CHLORHEXIDINE GLUCONATE 2 % 1 PACK (2 CLOTHS)(taper/protocol) TOPICAL SCH (03:44)
[2017-01-07 03:57] LABS: MEAN CELL VOLUME 97.6 FL (80.0-100.0); MEAN CORPUSCULAR HEMOGLOBIN 33.1 PG (27.0-34.0); MEAN CORPUSCULAR HGB CONC 33.9 % (32.0-36.0); PLATELET COUNT 70 TH/MM3 (150-450); RED BLOOD COUNT 2.36 MIL/MM3 (4.00-5.30); RED CELL DISTRIBUTION WIDTH 17.9 % (11.6-17.2); WHITE BLOOD COUNT 4.1 TH/MM3 (4.0-11.0)
[2017-01-07 03:58] LABS: REVIEW FLAG FINAL
[2017-01-07 04:38] LABS: BICARBONATE 25.9 MEQ/L (21.0-32.0); MAGNESIUM 1.8 MG/DL (1.5-2.5); POTASSIUM 3.6 MEQ/L (3.5-5.1)
[2017-01-07 05:06] LABS: CALCIUM-PROTEIN CORRECTED 8.2 MG/DL (8.5-10.1)
--- NOTE | 2017-01-07 08:11 | HHI.PR ---
Subjective Remarks Follow up anemia, GI bleed. The patient states that she feels "pretty good". Denies any blood in her stool overnight. Per nursing, patient has not had any bloody stools today. Patient denies chest pain, dyspnea, nausea, vomiting. Objective Vitals Vital Signs Date Time Temp Pulse Resp B/P Pulse Ox O2 Delivery O2 Flow Rate FiO2 01/07/17 07:45 97 21 01/07/17 06:00 94 01/07/17 04:00 97.8 01/07/17 04:00 92 01/07/17 04:00 97.8 92 16 149/68 97 01/07/17 02:00 80 01/07/17 00:00 81 01/07/17 00:00 98.8 81 16 109/53 95 01/06/17 22:00 84 01/06/17 20:00 99.2 87 19 129/59 99 01/06/17 20:00 87 01/06/17 18:00 80 11 120/54 96 01/06/17 17:00 81 18 114/55 97 01/06/17 16:00 98.8 73 15 116/56 97 01/06/17 15:00 75 14 99/51 96 01/06/17 14:00 89 17 107/51 97 01/06/17 13:00 86 20 129/62 95 01/06/17 12:01 84 23 119/87 97 01/06/17 12:00 98.5 01/06/17 11:00 89 20 127/56 98 01/06/17 10:00 95 10 126/86 98 01/06/17 09:04 98 21 159/70 97 01/06/17 09:00 92 16 145/113 98 I/O 01/06/17 01/06/17 01/06/17 01/07/17 01/07/17 01/07/17 07:00 15:00 23:00 07:00 15:00 23:00 Intake Total 1281 ml 1610 ml 686 ml 484 ml Output Total 500 ml Balance 1281 ml 1610 ml 186 ml 484 ml Intake Oral 960 ml 360 ml IV Total 1281 ml 650 ml 326 ml 484 ml Output Urine Total 500 ml # Voids 1 5 3 5 # Bowel Movements 1 Result Diagram: 01/07/1731701/07/17317 Imaging Last Impressions Abdomen/Pelvis CT 01/05/17 0000 Signed Impressions: Service Date/Time: Thursday, January 05, 2017 17:54 - CONCLUSION: Previous aortoiliac stent graft placement. Diffuse atherosclerotic plaque. No acute complication demonstrated. Braydon Macias MD Objective Remarks General: Elderly female in no acute distress. Heart: Regular rate and rhythm. No murmur. Lungs: Clear to auscultation bilaterally. No wheezes, rales, or rhonchi. Breathing is nonlabored. Abdomen: Soft, nontender, nondistended. Extremities: No lower extremity edema. Psych: Alert and oriented. Procedures None Urinary Catheter: No Vascular Central Line Catheter: No A/P Problem List: (1) Rectal bleeding ICD Code: K62.5 Status: Acute (2) History of chronic atrial fibrillation ICD Code: Z86.79 Status: Chronic (3) History of Clostridium difficile colitis ICD Code: Z87.19 Status: Acute (4) Hypertension ICD Code: I10 Status: Chronic (5) GERD (gastroesophageal reflux disease) ICD Code: K21.9 Status: Chronic (6) Acute blood loss anemia ICD Code: D62 Status: Acute (7) Thrombocytopenia ICD Code: D69.6 Status: Chronic Assessment and Plan 1. Bright red blood per rectum, acute blood loss anemia: Patient has received 1 unit PRBCs. No reported blood in stool overnight. Appreciate colorectal surgery recommendations. Patient denies taking NSAIDs or drinking alcohol. Denies history of peptic ulcer disease. 2. C. difficile: Start Flagyl. Consult gastroenterology. 3. Thrombocytopenia: Likely secondary to methotrexate therapy. Monitor labs. Transfuse platelets as needed in the setting of GI bleed. Hematology consultation is pending. Patient follows with Dr. Salgado as outpatient. 4. Atrial fibrillation, aortic valve replacement: Patient has been on Coumadin. Vitamin K was given upon admission. Anticoagulation has been discontinued secondary to GI bleed. Hematology consultation is pending. 5. Rheumatoid arthritis, osteoarthritis: Methotrexate discontinued. Continue pain control as needed. Continue folic acid. 6. Asthma: Continue Flovent. Nebulizer treatments as needed. 7. Hypertension: Blood pressure medications on hold. Vasotec available as needed. 8. GI prophylaxis: On Protonix drip. 9. DVT prophylaxis: SCDs. Avoid chemical prophylaxis secondary to GI bleed, anemia, thrombocytopenia. Kieran Graham MD Jan 07, 2017 08:11
[2017-01-07] MEDS: LEVOTHYROXINE SODIUM 50 MCG TAB PO SCH (08:14)
[2017-01-07] MEDS: FOLIC ACID 1 MG TAB PO SCH (08:14)
[2017-01-07] MEDS: SODIUM CHLORIDE 0.9% FLUSH 10 ML FLUSH IV FLUSH SCH ×2 (08:15→21:19)
[2017-01-07] MEDS: FLUTICASONE PROPIONATE 220 MCG/ACT 12 GM INHALER INH SCH ×2 (08:19→21:19)
[2017-01-07 08:43] LABS: HEMATOCRIT 25.9 % (35.0-46.0); MEAN CELL VOLUME 97.8 FL (80.0-100.0); MEAN CORPUSCULAR HEMOGLOBIN 32.7 PG (27.0-34.0); MEAN CORPUSCULAR HGB CONC 33.4 % (32.0-36.0); PLATELET COUNT 82 TH/MM3 (150-450); RED BLOOD COUNT 2.65 MIL/MM3 (4.00-5.30); RED CELL DISTRIBUTION WIDTH 17.9 % (11.6-17.2)
[2017-01-07 08:47] LABS: REVIEW FLAG FINAL
--- NOTE | 2017-01-07 11:33 | PD.ONC.PN ---
Subjective Subjective Remarks no further GI bleeding C.diff positive plans for EGD in AM afebrile anti-coagulation remains on hold d/w rn Objective Data Date Time Temp Pulse Resp B/P Pulse Ox O2 Delivery O2 Flow Rate FiO2 01/07/17 09:14 20 01/07/17 07:45 97 21 01/07/17 06:00 94 01/07/17 04:00 97.8 01/07/17 04:00 92 01/07/17 04:00 97.8 92 16 149/68 97 01/07/17 02:00 80 01/07/17 00:00 81 01/07/17 00:00 98.8 81 16 109/53 95 01/06/17 22:00 84 01/06/17 20:00 99.2 87 19 129/59 99 01/06/17 20:00 87 01/06/17 18:00 80 11 120/54 96 01/06/17 17:00 81 18 114/55 97 01/06/17 16:00 98.8 73 15 116/56 97 01/06/17 15:00 75 14 99/51 96 01/06/17 14:00 89 17 107/51 97 01/06/17 13:00 86 20 129/62 95 01/06/17 12:01 84 23 119/87 97 01/06/17 12:00 98.5 01/07/17 01/07/17 01/07/17 07:00 15:00 23:00 Intake Total 484 ml Balance 484 ml Result Diagram: 01/07/17 0820 01/07/17 0318 Laboratory Results Laboratory Tests Test 01/06/17 01/06/17 01/07/17 01/07/17 15:37 20:47 03:18 08:20 White Blood Count 4.5 TH/MM3 4.6 TH/MM3 4.1 TH/MM3 5.0 TH/MM3 Red Blood Count 2.22 MIL/MM3 2.52 MIL/MM3 2.36 MIL/MM3 2.65 MIL/MM3 Hemoglobin 7.4 GM/DL 8.2 GM/DL 7.8 GM/DL 8.7 GM/DL Hematocrit 21.6 % 24.9 % 23.0 % 25.9 % Mean Corpuscular Volume 97.0 FL 98.5 FL 97.6 FL 97.8 FL Mean Corpuscular Hemoglobin 33.1 PG 32.5 PG 33.1 PG 32.7 PG Mean Corpuscular Hemoglobin 34.2 % 33.0 % 33.9 % 33.4 % Concent Red Cell Distribution Width 17.5 % 17.7 % 17.9 % 17.9 % Platelet Count 67 TH/MM3 78 TH/MM3 70 TH/MM3 82 TH/MM3 Mean Platelet Volume 8.5 FL 7.9 FL 8.0 FL 7.7 FL Sodium Level 141 MEQ/L 143 MEQ/L Potassium Level 3.7 MEQ/L 3.6 MEQ/L Chloride Level 110 MEQ/L 112 MEQ/L Carbon Dioxide Level 26.3 MEQ/L 25.9 MEQ/L Anion Gap 5 MEQ/L 5 MEQ/L Blood Urea Nitrogen 8 MG/DL 7 MG/DL Creatinine 0.64 MG/DL 0.48 MG/DL Estimat Glomerular Filtration 89 ML/MIN 124 ML/MIN Rate Random Glucose 104 MG/DL 87 MG/DL Calcium Level 7.0 MG/DL 7.2 MG/DL Protein Corrected Calcium 7.9 MG/DL 8.2 MG/DL Total Protein 5.3 GM/DL 5.2 GM/DL Magnesium Level 1.8 MG/DL Administered Medications Medications (Trade) Dose Ordered Sig/Jair Route PRN Reason Start Time Stop Time Status Last Admin Dose Admin Pantoprazole Sodium/Sodium Chloride (Protonix Inj/NS Inj) 100 ml @ 10 mls/hr Q10H IV 01/05/17 15:30 01/06/17 21:41 Fluticasone Propionate (Flovent Hfa 220 Mcg Inh) 1 puff BID INH 01/05/17 21:00 01/07/17 08:19 Levothyroxine Sodium 50 mcg 50 mcg DAILY PO 01/06/17 09:00 01/07/17 08:14 Sodium Chloride (NS 1000 ml Inj) 1,000 ml @ 50 mls/hr Q20H IV 01/05/17 14:25 01/07/17 03:44 Sodium Chloride (NS Flush) 2 ml BID IV FLUSH 01/05/17 21:00 01/07/17 08:15 Acetaminophen (Tylenol) 650 mg Q6H PRN PO PAIN SCALE 1 TO 2 01/05/17 14:30 01/06/17 10:19 Oxycodone HCl (Roxicodone) 5 mg Q4H PRN PO PAIN SCALE 3 TO 10 01/05/17 14:30 01/07/17 08:14 Chlorhexidine Gluconate (Chlorhexidine 2% Cloth) 3 pack DAILY@04 TOPICAL 01/06/17 04:00 01/10/17 04:01 01/07/17 03:44 Folic Acid (Folate) 1 mg DAILY PO 01/06/17 10:00 01/07/17 08:14 Objective Remarks GENERAL: nad SKIN: Warm and dry. HEAD: Normocephalic. EYES: No scleral icterus. No injection or drainage. NECK: Supple, trachea midline. No JVD or lymphadenopathy. LYMPHATIC: No adenopathy. CARDIOVASCULAR: Regular rate and rhythm without murmurs. RESPIRATORY: Breath sounds equal bilaterally. No accessory muscle use. GASTROINTESTINAL: Abdomen soft, non-tender, nondistended. EXTREMITIES: No cyanosis, or edema. Assessment/Plan Problem List: (1) Abdominal pain Status: Acute (2) Rectal bleeding Status: Acute (3) Thrombocytopenia Status: Chronic (4) Acute blood loss anemia Status: Acute (5) Chronic anticoagulation Status: Acute Assessment 81-year-old female with a hx of CAD status post CABG and aortic valve replacement, chronic thrombocytopenia, anemia and RA -n MTX presents with GIB with BRBPR: 1. Acute on chronic thrombocytopenia: - appears to be back to her baseline - check LDH/Haptoglobin - Hepatitis panel 2.GIB bleeding - hold AC - plans for colonoscopy in AM 3. Anemia--seems to be chronic--in the past she was iron deficient - anemia studies pending 4. Rheumatoid arthritis - MTX on hold 5. C.diff infection - on Flagyl d/w Chetan Carlson MD Jan 07, 2017 11:33
--- NOTE | 2017-01-07 12:58 | HHI.PR ---
Subjective Remarks Rectal bleeding No further bleeding for last 24 hours Objective Vital Signs Date Time Temp Pulse Resp B/P Pulse Ox O2 Delivery O2 Flow Rate FiO2 01/07/17 09:14 20 01/07/17 07:45 97 21 01/07/17 06:00 94 01/07/17 04:00 97.8 01/07/17 04:00 92 01/07/17 04:00 97.8 92 16 149/68 97 01/07/17 02:00 80 01/07/17 00:00 81 01/07/17 00:00 98.8 81 16 109/53 95 01/06/17 22:00 84 01/06/17 20:00 99.2 87 19 129/59 99 01/06/17 20:00 87 01/06/17 18:00 80 11 120/54 96 01/06/17 17:00 81 18 114/55 97 01/06/17 16:00 98.8 73 15 116/56 97 01/06/17 15:00 75 14 99/51 96 01/06/17 14:00 89 17 107/51 97 01/06/17 13:00 86 20 129/62 95 I/O 01/06/17 01/06/17 01/06/17 01/07/17 01/07/17 01/07/17 07:00 15:00 23:00 07:00 15:00 23:00 Intake Total 1281 ml 1610 ml 686 ml 484 ml Output Total 500 ml Balance 1281 ml 1610 ml 186 ml 484 ml Intake Oral 960 ml 360 ml IV Total 1281 ml 650 ml 326 ml 484 ml Output Urine Total 500 ml # Voids 1 5 3 5 # Bowel Movements 1 Result Diagram: 01/07/17 0820 01/07/17 0318 Objective Remarks Abdomen benign Assessment and Plan Assessment and Plan Rectal bleeding - appears to have stopped C diff colitis - on Agnes Britton MD Jan 07, 2017 12:58
--- NOTE | 2017-01-07 14:01 | MB ---
cc: TRAN PRASAD M.D. DATE OF CONSULTATION: 01/07/2017. REASON FOR CONSULTATION: Anemia. HISTORY OF PRESENT ILLNESS: Thank you for the consultation. This is an 81-year-old lady who has multiple medical problems including coronary artery disease, aortic valve replacement and CABG who came to the hospital because of bright red blood per rectum large amount and anemia. The patient stated that she thought she had constipation and she passed a large amount of stool. She felt like it was a big potato. The patient had abdominal pain in the left lower quadrant with the bleeding. According to her nurse, she had maroon stool and the patient stated that since yesterday there was no bleeding. She feels okay. No pain, no diarrhea. The patient had history of C. difficile few years ago. She denied any colonoscopy but then when I mentioned to her the prep, she thought that she had had it but not very reliable. She denied any nausea or vomiting at this time. ALLERGIES: Multiple includin. PENICILLIN. 2. SPIRONOLACTONE. 3. NORVASC. 4. SULFA. 5. REGLAN. 6. ERYTHROMYCIN. PAST MEDICAL HISTORY: Her past medical history is significant for: 1. C. Difficile. 2. Aortic stenosis. 3. Congestive heart failure. 4. Coronary artery disease. 5. Asthma. 6. Atrial fibrillation. 7. Carpal tunnel syndrome. 8. Spine fusion. 9. Peripheral neuropathy. 10. Chronic pain syndrome. 11. Osteoarthritis. 12. Rheumatoid arthritis. 13. Hypertension. 14. Hypothyroidism. SOCIAL HISTORY: No tobacco or alcohol for many years. FAMILY HISTORY: Significant for liver disease and diabetes. REVIEW OF SYSTEMS: All twelve-point negative except for the history of present illness. PHYSICAL EXAMINATION: GENERAL: Alert, oriented, in no acute distress lying in bed comfortably. VITAL SIGNS: Vital signs are stable. HEAD, EYES, EARS, NOSE, THROAT: Pupils are round and reactive to light. NECK: The neck is supple. CHEST: Clear to auscultation and percussion. CARDIAC: Irregular rate and rhythm at this time. Heart rate in the 90s. ABDOMEN: The abdomen is soft, nontender and nondistended. Positive bowel sounds. EXTREMITIES: No edema, clubbing or cyanosis. NEUROLOGIC: Neurologically nonfocal. Alert and oriented and conversing well. PSYCHIATRIC: Psychologically appropriate. LABORATORY DATA: White count 5.0, hemoglobin 8.7, platelet 82,000. INR 1.3. Liver function tests are normal. PCR positive toxin negative. IMAGING STUDIES: CT scan showing aortic stent graft placement with atherosclerotic disease. ASSESSMENT AND PLAN: 81-year-old lady with rectal bleeding, maroon stool; most likely this is from the rectum and could be related to fissure even though she is not having rectal pain and she attributed it to passing a large amount of stool but I think it might be related to ischemic colon and she might have even malignancy or peptic ulcer disease, which is less likely. 1. I recommend blood replacement if needed with packed red blood cells. 2. Monitor hemoglobin and hematocrit. 3. An upper endoscopy and colonoscopy to be done tomorrow to rule out source of bleed. 4. Supportive care. MD TANIA Sood/BETSY /1:23 PM /1:57 PM
[2017-01-07] MEDS ORDERED: PEG (High)/E-LYTE SOLN 4000 ML BTL PO ONE (14:30)
[2017-01-07] MEDS: PANTOPRAZOLE INJ 80 MG in SODIUM CHLORIDE 0.9% INJ 100 ML IV SCH ×2 (15:24→21:18)
[2017-01-07 16:13] LABS: LDH SERUM 182 U/L (84-246); TRANSFERRIN IRON PROFILE 146 MG/DL (200-360)
[2017-01-08] VITALS (9 sets, daily range): BP systolic 129–175; BP diastolic 72–85; PULSE 72–100; RESP 16–28; TEMP 97.4–98.4; O2SAT 94–98
[2017-01-08] MEDS: CHLORHEXIDINE GLUCONATE 2 % 1 PACK (2 CLOTHS)(taper/protocol) TOPICAL SCH (04:00)
[2017-01-08] MEDS: PANTOPRAZOLE INJ 80 MG in SODIUM CHLORIDE 0.9% INJ 100 ML IV SCH ×3 (07:37→23:30)
[2017-01-08] MEDS: FOLIC ACID 1 MG TAB PO SCH (07:57)
[2017-01-08] MEDS: metroNIDAZOLE 500 MG TAB PO SCH ×3 (07:57→21:38)
[2017-01-08] MEDS: FLUTICASONE PROPIONATE 220 MCG/ACT 12 GM INHALER INH SCH ×2 (07:58→19:38)
[2017-01-08] MEDS: LEVOTHYROXINE SODIUM 50 MCG TAB PO SCH (07:58)
[2017-01-08] MEDS: SODIUM CHLORIDE 0.9% FLUSH 10 ML FLUSH IV FLUSH SCH ×2 (08:00→19:38)
--- NOTE | 2017-01-08 08:51 | HHI.PR ---
Subjective Remarks Pt feels well. Denies any rectal bleeding overnight. Denies any CP, admits to some SOB on and off but for her that normal and currently she doesn't have any. Denies any nausea or vomiting. Objective Vitals Vital Signs Date Time Temp Pulse Resp B/P Pulse Ox O2 Delivery O2 Flow Rate FiO2 01/08/17 06:00 95 01/08/17 04:00 98.0 94 21 167/79 98 01/08/17 04:00 94 01/08/17 02:00 83 01/08/17 00:00 98.4 97 19 171/77 97 01/08/17 00:00 97 01/07/17 22:00 99 01/07/17 20:00 111 01/07/17 20:00 98.8 111 25 164/67 97 01/07/17 19:00 98 18 179/75 98 01/07/17 18:00 109 22 166/79 97 01/07/17 17:08 96 17 170/79 98 01/07/17 17:04 109 26 187/79 98 01/07/17 17:02 101 11 183/79 97 01/07/17 17:00 102 8 183/88 98 01/07/17 16:00 88 17 158/73 97 01/07/17 15:00 91 18 153/70 96 01/07/17 14:00 84 17 157/76 96 01/07/17 13:00 90 20 165/78 97 01/07/17 12:01 84 25 158/71 98 01/07/17 11:00 78 16 140/63 97 01/07/17 10:00 86 14 133/63 97 01/07/17 09:14 20 01/07/17 09:00 99 20 145/75 97 I/O 01/07/17 01/07/17 01/07/17 01/08/17 01/08/17 01/08/17 07:00 15:00 23:00 07:00 15:00 23:00 Intake Total 484 ml 3163 ml 386 ml Output Total 500 ml 1400 ml Balance 484 ml 2663 ml -1014 ml Intake Oral 3000 ml 240 ml IV Total 484 ml 163 ml 146 ml Output Urine Total 300 ml 400 ml Stool Total 200 ml 1000 ml # Voids 5 3 2 Result Diagram: 01/07/17 0820 01/07/17 0318 Imaging Last Impressions Abdomen/Pelvis CT 01/05/17 0000 Signed Impressions: Service Date/Time: Thursday, January 05, 2017 17:54 - CONCLUSION: Previous aortoiliac stent graft placement. Diffuse atherosclerotic plaque. No acute complication demonstrated. Braydon Macias MD Objective Remarks General: Elderly female, laying in bed comfortably EYES: EOMI Heart: Irregularly irregular, No murmur. Lungs: Clear to auscultation bilaterally. No wheezes. Breathing is nonlabored. Abdomen: Soft, nontender, nondistended. Extremities: No lower extremity edema. moves extremities Psych: Alert and oriented. Procedures None A/P Problem List: (1) Rectal bleeding ICD Code: K62.5 Status: Acute (2) History of chronic atrial fibrillation ICD Code: Z86.79 Status: Chronic (3) History of Clostridium difficile colitis ICD Code: Z87.19 Status: Acute (4) Hypertension ICD Code: I10 Status: Chronic (5) GERD (gastroesophageal reflux disease) ICD Code: K21.9 Status: Chronic (6) Acute blood loss anemia ICD Code: D62 Status: Acute (7) Thrombocytopenia ICD Code: D69.6 Status: Chronic Assessment and Plan 1. Bright red blood per rectum, acute blood loss anemia: s/p 1 unit PRBCs. No reported blood in stool overnight. Appreciate colorectal surgery recommendations. Patient denies taking NSAIDs or drinking alcohol. Denies history of peptic ulcer disease. 2. C. difficile: on Flagyl. gastroenterology following. Per daughter however, pt has been asymptomatic? ID has been consulted. Appreciate any recs 3. Thrombocytopenia: Likely secondary to methotrexate therapy. Monitor labs. Transfuse platelets as needed in the setting of GI bleed. Hematology following. Patient follows with Dr. Salgado as outpatient. LDH/haptoglobin wnl. hepatitis panel pending. 4. Atrial fibrillation, aortic valve replacement: Patient has been on Coumadin. Vitamin K was given upon admission. Anticoagulation has been discontinued secondary to GI bleed. awaiting final recs from GI regarding when to start anticoag back. EGD/colonoscopy scheduled for this mornig. 5. Rheumatoid arthritis, osteoarthritis: Methotrexate discontinued. Continue pain control as needed. Continue folic acid. 6. Asthma: Continue Flovent. Nebulizer treatments as needed. 7. Hypertension: Blood pressure medications on hold. Vasotec available as needed. 8. GI prophylaxis: On Protonix drip. 9. DVT prophylaxis: SCDs. Avoid chemical prophylaxis secondary to GI bleed, anemia, thrombocytopenia. Discharge Planning EGD/colonoscopy scheduled for today discuss w GI regarding anticoagulation. Ines Chamorro MD Jan 08, 2017 08:51
--- NOTE | 2017-01-08 08:53 | MB ---
cc: SHAYY ANG DATE OF CONSULTATION: 01/06/2017. REASON FOR CONSULTATION: Patient with thrombocytopenia and anemia and GI bleeding. CHIEF COMPLAINT: Bright red blood per rectum. HISTORY OF PRESENT ILLNESS: Ms. Benites is an 81-year-old female who has a past medical history of chronic thrombocytopenia and macrocytic anemia who is a resident of a residential facility. She also has a history of coronary artery disease status post CABG and aortic valve replacement. She is on coumadin chronically. The patient has a history of rheumatoid arthritis and is on methotrexate. She became constipated at the senior care. She was given a laxative and she had a large hard bowel movement. Subsequently she developed GI bleeding. She states that she was having constant bleeding for two days. She was brought to the emergency room. On presentation, her hemoglobin was 9.8 and her platelet count was 84,000. The patient underwent CT of the abdomen and pelvis; this did not show any acute pathology. There is an aortic iliac stent graft placement which was seen. The patient has been seen by Dr. Butler and conservative management has been recommended. The patient's coumadin has been held on admission. Hematology has been consulted to make further recommendations. The patient sees my colleague, Dr. Salgado, in the clinic. She is being followed for chronic thrombocytopenia and anemia. REVIEW OF SYSTEMS: A comprehensive fourteen-point review of systems was completed, which is negative except as described in the history of present illness. PAST MEDICAL HISTORY: 1. Chronic thrombocytopenia. 2. History of iron deficiency anemia. 3. Macrocytic anemia. 4. Atrial fibrillation. 5. Asthma. 6. Coronary artery disease status post CABG. 7. Congestive heart failure. 8. Aortic stenosis status post bovine valve replacement. 9. History of C. Difficile. 10. Hypertension. 11. Hypothyroidism. 12. Rheumatoid arthritis. 13. Osteoarthritis. 14. Chronic pain syndrome. 15. Peripheral neuropathy.. 16. Spinal fusion. MEDICATIONS: 1. Folic acid 1 milligram p.o. daily. 2. Levothyroxine 50 micrograms p.o. daily. 3. Fluticasone one puff twice a day INH. 4. Pantoprazole 80 milligrams IV q. 10 hours. 5. Tylenol 650 p.o. q. 4 hours. 6. Zofran 4 milligrams IV q. 6 hours PRN. 7. Tylenol 650 p.o. q. 6 hours PRN. 8. Oxycodone 5 milligrams p.o. q. 4 hours PRN. 9. DuoNeb one amp q. 2 hours PRN. ALLERGIES: 1. ERYTHROMYCIN. 2. NORVASC. 3. PENICILLIN. 4. REGLAN. 5. SPIRONOLACTONE. 6. SULFA DRUGS. SOCIAL HISTORY: She lives in a residential facility. She quit smoking many years ago. She does not drink alcohol. FAMILY HISTORY: Family history is significant for diabetes and liver disease. PHYSICAL EXAMINATION: VITAL SIGNS: Blood pressure is 116/56, pulse is in the 70s, temperature is 98.8, 02 saturations are 97% on room air. GENERAL: A well-developed, well-nourished elderly female in no apparent distress. HEAD, EYES, EARS, NOSE, THROAT: Pupils are equal, round and reactive to light. Extraocular muscles intact. No oral thrush. No oral lesions. NECK: The neck is supple. No jugular venous distention. No bruits. No lymphadenopathy. CARDIAC: S1-S2. Regular rate and rhythm. CHEST: Clear to auscultation bilaterally. ABDOMEN: The abdomen is soft, nontender and nondistended. Bowel sounds are present. EXTREMITIES: Without any edema, erythema or cyanosis. SKIN: Without any petechiae, lesion or bruises. NEUROLOGIC: No focal deficit. PSYCHIATRIC: Mood and affect are appropriate. LABS: WBC is 4.6, hemoglobin is 8.2, platelet count is 78,000. Serum chemistries show sodium of 141, potassium 3.7, chloride 110, carbon dioxide 26.3, creatinine 0.64, GFR is 89, calcium is 7, total protein is 5.3. Coags show PT of 14.5, INR 1.3. IMAGING STUDIES: Imaging was reviewed in the electronic medical record. CT of the abdomen and pelvis was completed, which did not show any acute abnormalities. ASSESSMENT AND PLAN: This is an 81-year-old female with a past medical history of coronary artery disease, rheumatoid arthritis, history of aortic valve replacement, chronically on coumadin, history of anemia and chronic thrombocytopenia who presents to the emergency room with GI bleeding. 1. Thrombocytopenia: She has chronic thrombocytopenia. Her platelet count at this time is 70,000. We will review her peripheral smear. Will check LDH and haptoglobin. Check hepatitis profile. We will monitor daily CBC. 2. Anemia with a hemoglobin of 8.2. She has had a history of iron deficiency anemia. She also has had macrocytosis in the past. Will check anemia studies. Check B12 and folate. There does not appear to be any underlying hemolysis. Obtain stool hemoccult test. 3. Aortic valve replacement chronically on coumadin. If her hemoglobin remains stable over the next 24 hours, we can start her on Heparin drip and eventually she can be started back on coumadin if she does not have any further episodes of bright red blood per rectum and her hemoglobin remains stable. 4. History of rheumatoid arthritis. She was on methotrexate. This has been held on admission. Thank you for allowing me to participate in the care of this patient. We will continue to follow this patient along. MD TIM Reynoso/BETSY /11:24 AM /8:58 AM
--- NOTE | 2017-01-08 10:35 | PD.ONC.PN ---
Subjective Subjective Remarks Afebrile overnight. Family members at bedside. Patient waiting to go down for colonoscopy/endoscopy. Denies any obvious bleeding. Objective Data Date Time Temp Pulse Resp B/P Pulse Ox O2 Delivery O2 Flow Rate FiO2 01/08/17 06:00 95 01/08/17 04:00 98.0 94 21 167/79 98 01/08/17 04:00 94 01/08/17 02:00 83 01/08/17 00:00 98.4 97 19 171/77 97 01/08/17 00:00 97 01/07/17 22:00 99 01/07/17 20:00 111 01/07/17 20:00 98.8 111 25 164/67 97 01/07/17 19:00 98 18 179/75 98 01/07/17 18:00 109 22 166/79 97 01/07/17 17:08 96 17 170/79 98 01/07/17 17:04 109 26 187/79 98 01/07/17 17:02 101 11 183/79 97 01/07/17 17:00 102 8 183/88 98 01/07/17 16:00 88 17 158/73 97 01/07/17 15:00 91 18 153/70 96 01/07/17 14:00 84 17 157/76 96 01/07/17 13:00 90 20 165/78 97 01/07/17 12:01 84 25 158/71 98 01/07/17 11:00 78 16 140/63 97 01/08/17 01/08/17 01/08/17 07:00 15:00 23:00 Intake Total 386 ml Output Total 1400 ml Balance -1014 ml Result Diagram: 01/07/17 0820 01/07/17 0318 Laboratory Results Laboratory Tests Test 01/07/17 15:14 Haptoglobin 172 MG/DL Iron Level 55 MCG/DL Total Iron Binding Capacity 204 MCG/DL Percent Iron Saturation 26.9 % Transferrin 146 MG/DL Lactate Dehydrogenase 182 U/L Vitamin B12 Level 1497 PG/ML Culture Results Microbiology Date/Time Procedure Status Source Growth 01/07/17 20:00 Stool Occult Blood (TAMMI) - Final Complete Stool Stool HEMOCCULT POSITIVE Administered Medications Medications (Trade) Dose Ordered Sig/Jair Route PRN Reason Start Time Stop Time Status Last Admin Dose Admin Pantoprazole Sodium/Sodium Chloride (Protonix Inj/NS Inj) 100 ml @ 10 mls/hr Q10H IV 01/05/17 15:30 01/08/17 07:37 Fluticasone Propionate (Flovent Hfa 220 Mcg Inh) 1 puff BID INH 01/05/17 21:00 01/08/17 07:58 Levothyroxine Sodium 50 mcg 50 mcg DAILY PO 01/06/17 09:00 01/08/17 07:58 Sodium Chloride (NS 1000 ml Inj) 1,000 ml @ 30 mls/hr Q24H IV 01/05/17 14:25 01/07/17 03:44 Sodium Chloride (NS Flush) 2 ml BID IV FLUSH 01/05/17 21:00 01/08/17 08:00 Acetaminophen (Tylenol) 650 mg Q6H PRN PO PAIN SCALE 1 TO 2 01/05/17 14:30 01/06/17 10:19 Oxycodone HCl (Roxicodone) 5 mg Q4H PRN PO PAIN SCALE 3 TO 10 01/05/17 14:30 01/07/17 08:14 Chlorhexidine Gluconate (Chlorhexidine 2% Cloth) 3 pack DAILY@04 TOPICAL 01/06/17 04:00 01/10/17 04:01 01/08/17 04:00 Folic Acid (Folate) 1 mg DAILY PO 01/06/17 10:00 01/08/17 07:57 Metronidazole (Flagyl) 500 mg Q6HR PO 01/08/17 07:00 01/08/17 07:57 Objective Remarks GENERAL: Elderly female supine in bed in [facility]. SKIN: Warm and dry. HEAD: Normocephalic. EYES: No injection or drainage. NECK: Supple, trachea midline. CARDIOVASCULAR: +S1/S2 RESPIRATORY: anterior bustamante clear GASTROINTESTINAL: Abdomen soft, non-tender, nondistended. EXTREMITIES: No cyanosis, or edema. MUSCULOSKELETAL: Adequate muscle tone. NEUROLOGICAL: No obvious focal deficit. Awake, alert, and oriented x3. Assessment/Plan Problem List: (1) Abdominal pain Status: Acute (2) Rectal bleeding Status: Acute (3) Thrombocytopenia Status: Chronic (4) Acute blood loss anemia Status: Acute (5) Chronic anticoagulation Status: Acute Assessment 81-year-old female with a hx of CAD status post CABG and aortic valve replacement, chronic thrombocytopenia, anemia and RA -n MTX presents with GIB with BRBPR: 1. Acute on chronic thrombocytopenia: - LDH/Haptoglobin WNL - Hepatitis panel negative --platelets stable. 2.GIB bleeding - hold AC - colonoscopy today 3. Anemia--seems to be chronic-- --mild iron deficiency 4. Rheumatoid arthritis - MTX on hold 5. C.diff infection - on Flagyl Attending Statement The exam, history, and the medical decision-making described in the above note were completed with the assistance of the mid-level provider. I reviewed and agree with the findings presented. I attest that I had a [id number] encounter with the patient on the same day, and personally performed and documented my assessment and findings in the medical record. Restart once colonoscopy completed and no evidence of bleeding Initiate heparin gtt first to make sure that Hb does not drop d/w Dona Workman Jan 08, 2017 10:35 Chetan Reynoso MD Jan 08, 2017 22:37
--- NOTE | 2017-01-08 11:00 | PD.CONS ---
History of Present Illness Service Infectious Disease Consult Requested By Dr Chamorro Reason for Consult Evaluate patient with C difficile colitis Primary Care Physician Arpit Archer MD Diagnoses: History of Present Illness Patient seen and examined. Records reviewed. Patient is an 81-year-old female, presented to the hospital for further evaluation of bright red blood per rectum. [facility] the [facility] , and apparently she had constipation. She got 2 red pills, and after that she passed a large formed hard stool. After she had that bowel movement, she started passing bright red blood per rectum. She's had some lower abdominal pain. Prior to that she denies any diarrhea. Patient recently was treated for pneumonia, the second week in November. Patient had a prior C. difficile colitis episode about 2 years ago, and has been without any problem after that episode. According to her nurse, she had a small episode of blood per rectum this morning. Patient is scheduled to get an upper and lower endoscopy today. She had liquid stool yesterday after she had the prep for the colonoscopy. This morning her stool volume was very small. She's not been febrile. WBC is normal. CT of the abdomen and pelvis did not show any bowel wall thickening. Stool was sent for C. difficile and it came back positive today. She was started on Flagyl this morning. Infectious disease consultation has been requested to evaluate the patient. Review of Systems Constitutional: DENIES: Fever, Chills Eyes: DENIES: Eye pain Ears, nose, mouth, throat: DENIES: Nasal discharge, Oral lesions, Throat pain, Ear Pain Respiratory: DENIES: Cough, Shortness of breath Cardiovascular: DENIES: Chest pain, Palpitations, Syncope Gastrointestinal: COMPLAINS OF: Abdominal pain, Bloody stools, Diarrhea, DENIES: Nausea, Vomiting Genitourinary: DENIES: Dysuria Musculoskeletal: DENIES: Muscle aches Integumentary: DENIES: Rash Immunologic/allergic: DENIES: Urticaria Neurologic: DENIES: Headache Psychiatric: DENIES: Confusion, Hallucinations Past Family Social History Allergies: Coded Allergies: Norvasc (Verified Allergy, Severe, redness "i look like hamburger meat", ) Penicillin (Verified Allergy, Severe, RASH / HIVES, 01/05/17) Spironolactone (Verified Allergy, Severe, hives, 01/05/17) HIVES/ITCHING Sulfa (Verified Allergy, Severe, SWELLING, 01/05/17) Reglan (Verified Allergy, Intermediate, 01/05/17) Erythromycin (Verified Allergy, Unknown, 01/05/17) *MDRO Multi-Drug Resistant Organism (Verified Adverse Reaction, Unknown, ) 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 difficile colitis 2 years ago Hypertension Hypothyroidism Rheumatoid arthritis Chronic pain syndrome Neuropathy Past Surgical History Abdominal aortic aneurysm status post repair Status post CABG Status post bovine aortic valve replacement Spinal fusion Active Ordered Medications Tylenol Albuterol Flovent Folic acid Synthroid Flagyl Zofran Oxycodone Protonix Family History Noncontributory Social History Lives in the [facility] Ex-smoker quit 40 years ago No alcohol abuse No illicit drugs Physical Exam Vital Signs Vital Signs Date Time Temp Pulse Resp B/P Pulse Ox O2 Delivery O2 Flow Rate FiO2 01/08/17 06:00 95 01/08/17 04:00 98.0 94 21 167/79 98 01/08/17 04:00 94 01/08/17 02:00 83 01/08/17 00:00 98.4 97 19 171/77 97 01/08/17 00:00 97 01/07/17 22:00 99 01/07/17 20:00 111 01/07/17 20:00 98.8 111 25 164/67 97 01/07/17 19:00 98 18 179/75 98 01/07/17 18:00 109 22 166/79 97 01/07/17 17:08 96 17 170/79 98 01/07/17 17:04 109 26 187/79 98 01/07/17 17:02 101 11 183/79 97 01/07/17 17:00 102 8 183/88 98 01/07/17 16:00 88 17 158/73 97 01/07/17 15:00 91 18 153/70 96 01/07/17 14:00 84 17 157/76 96 01/07/17 13:00 90 20 165/78 97 01/07/17 12:01 84 25 158/71 98 01/07/17 11:00 78 16 140/63 97 Physical Exam GENERAL: Patient is a well-nourished, well-developed CF, awake and alert, not in respiratory distress. SKIN: Warm and dry. No generalized rash, no ecchymoses and no evidence of embolic lesions. HEAD: Atraumatic. Normocephalic. No temporal wasting, or tenderness. EYES: [place] conjunctiva. No petechia or hemorrhage. Pupils equal, round and reactive to light. Extraocular movements full and intact. No scleral icterus. No injection or drainage. EARS, NOSE AND THROAT: Nose without bleeding or purulent nasal discharge. No sinus tenderness. Mucous membranes pink and moist. No oral lesions noted. Wears upper and lower dentures NECK: Trachea midline. Supple and not tender, no meningeal signs CARDIOVASCULAR: Regular rate and rhythm. No murmurs, rubs or gallops heard. Scar compatible with surgery RESPIRATORY: Clear to auscultation. Breath sounds equal bilaterally. No rales , wheezing or rhonchi ABDOMEN: Soft, nondistended, bowel sounds present and normoactive, has tenderness on R side, no guarding or rebound. No organomegaly. EXTREMITIES: No clubbing, cyanosis, or edema. No joint effusion, has good ROM. No calf tenderness. Well perfused and warm. NEUROLOGICAL: Awake and alert. Cranial nerves grossly intact. Motor grossly within normal limits. PSYCHIATRIC: Normal affect, calm and cooperative. LINE: No evidence of infection Laboratory Laboratory Tests Test 01/07/17 15:14 Haptoglobin 172 Iron Level 55 Total Iron Binding Capacity 204 Percent Iron Saturation 26.9 Transferrin 146 Lactate Dehydrogenase 182 Vitamin B12 Level 1497 Date/Time Procedure Status Source Growth 01/07/17 20:00 Stool Occult Blood (TAMMI) - Final Complete Stool Stool HEMOCCULT POSITIVE Result Diagram: 01/07/17 0820 01/07/17 0318 Imaging RADIOLOGY STUDIES/FILMS REVIEWED Abdomen/Pelvis CT 01/05/17 0000 Signed Impressions: Service Date/Time: Thursday, January 05, 2017 17:54 - CONCLUSION: Previous aortoiliac stent graft placement. Diffuse atherosclerotic plaque. No acute complication demonstrated. Braydon Macias MD Assessment and Plan Assessment and Plan IMPRESSION GIB, has bright red blood per rectum usually indicative of LGIB - had constipation prior to episode of GIB C diff (+) stool, no bowel wall thickening on CT - was on Abx last November and this is the risk factor RECOMMENDATION GI work-up in progress Continue Flagyl and give x 14 days Continue lactinex Monitor progress Avoid systemic Abx I will follow along with you Thank you for this consultation Discussed Condition With D/W RN Discussed plan with family María Valdez MD Jan 08, 2017 11:00
[2017-01-08] MEDS: METOPROLOL TARTRATE 25 MG TAB PO SCH ×2 (12:00→19:38)
[2017-01-08] MEDS ORDERED: OLOPATADINE HCL 0.1% OPHT SOLN 5 ML BTL EACH EYE PRN (12:00)
[2017-01-08] MEDS ORDERED: PHENYLEPH/NS 1000 MCG/10 ML SYR IV ONE (12:00)
[2017-01-08 12:53] LABS: AUTOMATED NEUTROPHIL # 3.2 TH/MM3 (1.8-7.7); BASOPHIL % 0.6 % (0.0-2.0); EOSINOPHIL # 0.1 TH/MM3 (0-0.4); EOSINOPHIL % 1.8 % (0.0-4.0); HEMATOCRIT 25.4 % (35.0-46.0); LYMPH % 21.7 % (9.0-44.0); LYMPHOCYTE # 1.1 TH/MM3 (1.0-4.8); MEAN CELL VOLUME 99.5 FL (80.0-100.0); MEAN CORPUSCULAR HEMOGLOBIN 32.5 PG (27.0-34.0); MEAN CORPUSCULAR HGB CONC 32.7 % (32.0-36.0); MONO % 9.6 % (0.0-8.0); NEUT % 66.3 % (16.0-70.0); PLATELET COUNT 90 TH/MM3 (150-450); RED BLOOD COUNT 2.56 MIL/MM3 (4.00-5.30); RED CELL DISTRIBUTION WIDTH 17.8 % (11.6-17.2); WHITE BLOOD COUNT 4.8 TH/MM3 (4.0-11.0)
[2017-01-08 12:57] LABS: HEMO FLAGS AUTO DIFF
[2017-01-08 13:28] LABS: BICARBONATE 22.7 MEQ/L (21.0-32.0); POTASSIUM 3.2 MEQ/L (3.5-5.1)
[2017-01-08] MEDS ORDERED: PROPOFOL 200 MG/20 ML AMP IV PUSH ONE (13:32)
--- NOTE | 2017-01-08 13:36 | GIPROC ---
[facility] [address] [facility]. [facility], [address] EGD PROCEDURE REPORT EXAM DATE: 01/08/2017 PATIENT NAME: Krystin Benites MR #: [id number] BIRTHDATE: 1935 ATTENDING: Jeniffer Feldman MD ORDER #: [id number] CHIPPING MACHINE OPERATOR: Grady Jama and Reuben Palacio STATUS: inpatient INDICATIONS: The patient is a 81 yr old female here for an EGD due to anemia, gi bleeding PROCEDURE PERFORMED: EGD w/ biopsy MEDICATIONS: Per Anesthesia and None. TOPICAL ANESTHETIC: none CONSENT: The patient understands the risks and benefits of the procedure and understands that these risks include, but are not limited to: sedation, allergic reaction, infection, perforation and/or bleeding. Alternative means of evaluation and treatment include, among others: physical exam, x-rays, and/or surgical intervention. The patient elects to proceed with this endoscopic procedure. medical equipment was checked for proper function. Hand hygiene and appropriate measures for infection prevention was taken. After the risks, benefits and alternatives of the procedure were thoroughly explained, Informed consent was verified, confirmed and timeout was successfully executed by the treatment team. The patient was anesthetized with topical anesthesia and the EC-[id number] (Pedi C) endoscope was introduced through the mouth and advanced to the second portion of the duodenum. Retroflexed views revealed a hiatal hernia The gastroscope was then slowly withdrawn and removed. The endoscopy was otherwise normal. Esophagitis distal esophagus -biopsy. ADVERSE EVENTS: There were no complications. IMPRESSIONS: 1. Normal endoscopy otherwise 2. Esophagitis distal esophagus -biopsy 3. Retroflexed views revealed a hiatal hernia RECOMMENDATIONS: 1. Await biopsy results. Biopsy results will not be ready for 7-10 days. If you don't hear from us in two weeks, call our office for biopsy results. 2. Anti-reflux regimen 3. Continue PPI PATIENT CONDITION: stable DISPOSITION: Inpatient REPEAT EXAM: EGD pending biopsy results Jeniffer Feldman MD eSigned: Jeniffer Feldman MD 01/08/2017 1:35 PM cc:
--- NOTE | 2017-01-08 13:38 | GIPROC ---
[facility] [address] [facility]. [facility], [address] COLONOSCOPY PROCEDURE REPORT EXAM DATE: 01/08/2017 PATIENT NAME: Krystin Benites MR #: [id number] BIRTHDATE: 1935 ENDOSCOPIST: Jeniffer Feldman MD ORDER #: [id number] PETAL CUTTER: Grady Jama and Reuben Palacio STATUS: inpatient INDICATIONS: The patient is a 81 yr old female here for a colonoscopy due to gi bleeding PROCEDURE PERFORMED: Colonoscopy, diagnostic MEDICATIONS: Per Anesthesia and None. PREP QUALITY: fair PREP TYPE:GoLytely ESTIMATED BLOOD LOSS: None CONSENT: The patient understands the risks and benefits of the procedure and understands that these risks include, but are not limited to: sedation, allergic reaction, infection, perforation and/or bleeding. Alternative means of evaluation and treatment include, among others: physical exam, x-rays, and/or surgical intervention. The patient elects to proceed with this endoscopic procedure. medical equipment was checked for proper function. Hand hygiene and appropriate measures for infection prevention was taken. After the risks, benefits and alternatives of the procedure were thoroughly explained, Informed consent was verified, confirmed and timeout was successfully executed by the treatment team. A digital exam revealed external hemorrhoids The Pentax [id number] endoscope was introduced through the anus and advanced to the cecum, which was identified by both the appendix and ileocecal valve. The instrument was then slowly withdrawn as the colon was fully examined. COLON FINDINGS: Diverticulosis sigmoid,descending. Retroflexed views revealed internal hemorrhoids and Retroflexed views revealed medium internal hemorrhoids The scope was then completely withdrawn from the patient and the procedure terminated. PROCEDURE WITHDRAWAL TIME:6minutes ADVERSE EVENTS: There were no complications. IMPRESSIONS: 1. Diverticulosis sigmoid,descending 2. Retroflexed views revealed internal hemorrhoids 3. Retroflexed views revealed medium internal hemorrhoids 4. Revealed external hemorrhoids RECOMMENDATIONS: 1. High fiber diet 2. Probiotics from any C or health food store 3. Yearly rectal exams 4. Benefiber 2 tsp daily RECALL: Return 10 years Colonoscopy Jeniffer Feldman MD eSigned: Jeniffer Feldman MD 01/08/2017 1:37 PM cc:
[2017-01-08 13:41] LABS: CALCIUM-PROTEIN CORRECTED 7.9 MG/DL (8.5-10.1)
[2017-01-08 14:02] LABS: PLATELET ESTIMATE SMEAR LOW (NORMAL); PLATELET MORPHOLOGY NORMAL (NORMAL)
[2017-01-08 14:03] LABS: OVALOCYTES 1+ (NORMAL); SCAN/DIFF AUTO DIFF CONFIRMED
--- NOTE | 2017-01-08 17:01 | HHI.PR ---
Subjective Remarks C/R Surg NO further bleeding for 2 days, Hgb stable heidi PO on flagyl PO no complaints Objective - Vital Signs Date Time Temp Pulse Resp B/P Pulse Ox O2 Delivery O2 Flow Rate FiO2 01/08/17 14:33 97.8 95 16 165/85 94 01/07/17 07:45 21 01/05/17 18:10 Room Air Result Diagram: 01/08/17 1207 01/08/17 1207 Objective Remarks PE alert Abd - soft, non-tender, no tympany A/P Assessment and Plan Imp: stable dc ivf reg diet dc plans Abraham Butler MD Jan 08, 2017 17:01
[2017-01-08] MEDS: OLOPATADINE HCL 0.1% OPHT SOLN 5 ML BTL EACH EYE SCH (19:39)
[2017-01-09] VITALS (7 sets, daily range): BP systolic 135–161; BP diastolic 59–80; PULSE 70–82; RESP 15–18; TEMP 96.7–99.2; O2SAT 95–98
[2017-01-09] MEDS: PANTOPRAZOLE INJ 80 MG in SODIUM CHLORIDE 0.9% INJ 100 ML IV SCH ×5 (01:37→20:23)
[2017-01-09] MEDS: CHLORHEXIDINE GLUCONATE 2 % 1 PACK (2 CLOTHS)(taper/protocol) TOPICAL SCH (04:00)
[2017-01-09] MEDS: metroNIDAZOLE 500 MG TAB PO SCH ×3 (06:00→22:35)
[2017-01-09] MEDS: LEVOTHYROXINE SODIUM 50 MCG TAB PO SCH (06:01)
[2017-01-09 07:02] LABS: AUTOMATED NEUTROPHIL # 2.9 TH/MM3 (1.8-7.7); BASOPHIL % 0.7 % (0.0-2.0); EOSINOPHIL # 0.2 TH/MM3 (0-0.4); EOSINOPHIL % 4.9 % (0.0-4.0); LYMPH % 21.6 % (9.0-44.0); MEAN CELL VOLUME 98.5 FL (80.0-100.0); MEAN CORPUSCULAR HEMOGLOBIN 33.7 PG (27.0-34.0); MEAN CORPUSCULAR HGB CONC 34.2 % (32.0-36.0); MONO % 11.1 % (0.0-8.0); NEUT % 61.7 % (16.0-70.0); PLATELET COUNT 85 TH/MM3 (150-450); RED BLOOD COUNT 2.44 MIL/MM3 (4.00-5.30); RED CELL DISTRIBUTION WIDTH 17.9 % (11.6-17.2); WHITE BLOOD COUNT 4.7 TH/MM3 (4.0-11.0)
[2017-01-09 07:06] LABS: HEMO FLAGS AUTO DIFF
[2017-01-09 07:27] LABS: BICARBONATE 23.1 MEQ/L (21.0-32.0); POTASSIUM 3.4 MEQ/L (3.5-5.1)
[2017-01-09 07:42] LABS: CALCIUM-PROTEIN CORRECTED 7.8 MG/DL (8.5-10.1)
[2017-01-09] MEDS: OLOPATADINE HCL 0.1% OPHT SOLN 5 ML BTL EACH EYE SCH ×2 (08:48→20:23)
[2017-01-09] MEDS: SODIUM CHLORIDE 0.9% FLUSH 10 ML FLUSH IV FLUSH SCH ×2 (08:48→20:23)
[2017-01-09] MEDS: METOPROLOL TARTRATE 25 MG TAB PO SCH ×2 (08:48→20:23)
[2017-01-09] MEDS: FOLIC ACID 1 MG TAB PO SCH (08:48)
[2017-01-09] MEDS: FLUTICASONE PROPIONATE 220 MCG/ACT 12 GM INHALER INH SCH ×2 (08:48→20:23)
[2017-01-09 08:54] LABS: OVALOCYTES 1+ (NORMAL)
[2017-01-09 08:55] LABS: PLATELET ESTIMATE SMEAR LOW (NORMAL); PLATELET MORPHOLOGY NORMAL (NORMAL); SCAN/DIFF AUTO DIFF CONFIRMED
[2017-01-09 09:33] LABS: INTERNATIONAL NORMALIZED RATIO 1.2 RATIO
--- NOTE | 2017-01-09 13:06 | HHI.IDPN ---
Subjective Subjective Remarks Patient is an 81-year-old female, presented to the hospital for further evaluation of bright red blood per rectum. Patient has been in the custodial , and apparently she had constipation. She got 2 red pills, and after that she passed a large formed hard stool. After she had that bowel movement, she started passing bright red blood per rectum. She's had some lower abdominal pain. Prior to that she denies any diarrhea. Patient recently was treated for pneumonia, the second week in November. Patient had a prior C. difficile colitis episode about 2 years ago, and has been without any problem after that episode. According to her nurse, she had a small episode of blood per rectum this morning. Patient is scheduled to get an upper and lower endoscopy today. She had liquid stool yesterday after she had the prep for the colonoscopy. This morning her stool volume was very small. She's not been febrile. WBC is normal. CT of the abdomen and pelvis did not show any bowel wall thickening. Stool was sent for C. difficile and it came back positive today. She was started on Flagyl this morning. Notes reviewed No complaint except she has not had any BM yet today Endoscopy showed esophagitis, HH, tics and hemorrhoids Antibiotics Flagyl Lines PIV Past Medical History History of atrial fibrillation, on Coumadin Asthma CAD CHF Carpal tunnel syndrome Aortic stenosis, previous valve replacement Previous C. difficile colitis 2 years ago Hypertension Hypothyroidism Rheumatoid arthritis Chronic pain syndrome Neuropathy Past Surgical History Abdominal aortic aneurysm status post repair Status post CABG Status post bovine aortic valve replacement Spinal fusion Allergies: Coded Allergies: Norvasc (Verified Allergy, Severe, redness "i look like hamburger meat", ) Penicillin (Verified Allergy, Severe, RASH / HIVES, 01/05/17) Spironolactone (Verified Allergy, Severe, hives, 01/05/17) HIVES/ITCHING Sulfa (Verified Allergy, Severe, SWELLING, 01/05/17) Reglan (Verified Allergy, Intermediate, 01/05/17) Erythromycin (Verified Allergy, Unknown, 01/05/17) *MDRO Multi-Drug Resistant Organism (Verified Adverse Reaction, Unknown, ) MRSA PCR Positive--01/05/17 Objective . Vital Signs Date Time Temp Pulse Resp B/P Pulse Ox O2 Delivery O2 Flow Rate FiO2 01/09/17 12:00 99.2 70 17 135/59 96 01/09/17 08:00 98.3 74 15 152/69 95 01/09/17 04:00 97.7 74 18 136/72 96 01/09/17 01:02 21 01/09/17 00:00 97.8 70 16 136/67 95 01/08/17 20:00 97.4 72 20 129/72 97 01/08/17 19:31 17 01/08/17 17:17 96.6 78 18 149/73 99 01/08/17 16:00 98.4 99 16 175/79 96 01/08/17 14:33 97.8 95 16 165/85 94 01/08/17 13:50 83 18 158/91 95 01/08/17 13:42 81 16 155/89 97 01/08/17 01/08/17 01/09/17 15:00 23:00 07:00 Intake Total 428 ml 100 ml Output Total 550 ml Balance -550 ml 428 ml 100 ml IV Total 332 ml 100 ml Other 96 ml Output Urine Total 550 ml # Bowel Movements 1 . Laboratory Tests Test 01/07/17 01/08/17 01/09/17 15:14 12:07 06:00 Haptoglobin 172 MG/DL White Blood Count 4.8 TH/MM3 4.7 TH/MM3 Red Blood Count 2.56 MIL/MM3 2.44 MIL/MM3 Hemoglobin 8.3 GM/DL 8.2 GM/DL Hematocrit 25.4 % 24.0 % Mean Corpuscular Volume 99.5 FL 98.5 FL Mean Corpuscular Hemoglobin 32.5 PG 33.7 PG Mean Corpuscular Hemoglobin 32.7 % 34.2 % Concent Red Cell Distribution Width 17.8 % 17.9 % Platelet Count 90 TH/MM3 85 TH/MM3 Mean Platelet Volume 7.3 FL 8.0 FL Neutrophils (%) (Auto) 66.3 % 61.7 % Lymphocytes (%) (Auto) 21.7 % 21.6 % Monocytes (%) (Auto) 9.6 % 11.1 % Eosinophils (%) (Auto) 1.8 % 4.9 % Basophils (%) (Auto) 0.6 % 0.7 % Neutrophils # (Auto) 3.2 TH/MM3 2.9 TH/MM3 Lymphocytes # (Auto) 1.1 TH/MM3 1.0 TH/MM3 Monocytes # (Auto) 0.5 TH/MM3 0.5 TH/MM3 Eosinophils # (Auto) 0.1 TH/MM3 0.2 TH/MM3 Basophils # (Auto) 0.0 TH/MM3 0.0 TH/MM3 CBC Comment AUTO DIFF AUTO DIFF Differential Comment AUTO DIFF AUTO DIFF CONFIRMED CONFIRMED Platelet Estimate LOW LOW Platelet Morphology Comment NORMAL NORMAL Ovalocytes 1+ 1+ Laboratory Tests Test 01/07/17 01/08/17 01/09/17 15:14 12:07 06:00 Iron Level 55 MCG/DL Total Iron Binding Capacity 204 MCG/DL Percent Iron Saturation 26.9 % Transferrin 146 MG/DL Lactate Dehydrogenase 182 U/L Vitamin B12 Level 1497 PG/ML Sodium Level 141 MEQ/L 142 MEQ/L Potassium Level 3.2 MEQ/L 3.4 MEQ/L Chloride Level 109 MEQ/L 110 MEQ/L Carbon Dioxide Level 22.7 MEQ/L 23.1 MEQ/L Anion Gap 9 MEQ/L 9 MEQ/L Blood Urea Nitrogen 3 MG/DL 3 MG/DL Creatinine 0.43 MG/DL 0.49 MG/DL Estimat Glomerular Filtration 141 ML/MIN 121 ML/MIN Rate Random Glucose 86 MG/DL 83 MG/DL Calcium Level 7.2 MG/DL 7.0 MG/DL Protein Corrected Calcium 7.9 MG/DL 7.8 MG/DL Total Protein 5.8 GM/DL 5.6 GM/DL Microbiology Date/Time Procedure Status Source Growth 01/07/17 20:00 Stool Occult Blood (TAMMI) - Final Complete Stool Stool HEMOCCULT POSITIVE Imaging Last Impressions Abdomen/Pelvis CT 01/05/17 0000 Signed Impressions: Service Date/Time: Thursday, January 05, 2017 17:54 - CONCLUSION: Previous aortoiliac stent graft placement. Diffuse atherosclerotic plaque. No acute complication demonstrated. Braydon Macias MD Physical Exam GENERAL: awake and alert, not in respiratory distress. SKIN: Warm and dry. No generalized rash, no ecchymoses and no evidence of embolic lesions. HEAD: Atraumatic. Normocephalic. No temporal wasting, or tenderness. EYES: [place] conjunctiva. No petechia or hemorrhage. Pupils equal, round and reactive to light. Extraocular movements full and intact. No scleral icterus. No injection or drainage. EARS, NOSE AND THROAT: Nose without bleeding or purulent nasal discharge. Mucous membranes pink and moist. No oral lesions noted. Wears upper and lower dentures NECK: Trachea midline. Supple and not tender, no meningeal signs CARDIOVASCULAR: Regular rate and rhythm. No murmurs, rubs or gallops heard. Scar compatible with surgery RESPIRATORY: Clear to auscultation. Breath sounds equal bilaterally. No rales , wheezing or rhonchi ABDOMEN: Soft, nondistended, bowel sounds present and normoactive, has tenderness in suprapubic area, ?distended bladder, no guarding or rebound. No organomegaly. EXTREMITIES: No clubbing, cyanosis, or edema. No joint effusion, has good ROM. No calf tenderness. Well perfused and warm. NEUROLOGICAL: Awake and alert. Cranial nerves grossly intact. Motor grossly within normal limits. PSYCHIATRIC: Normal affect, calm and cooperative. LINE: No evidence of infection Assessment & Plan Remarks IMPRESSION GIB, has bright red blood per rectum usually indicative of LGIB - had constipation prior to episode of GIB C diff (+) stool, no bowel wall thickening on CT - was on Abx last November and this is the risk factor - no pseudomembrane on colonoscopy RECOMMENDATION Continue Flagyl and give x 14 days Continue lactinex Check bladder scan Monitor progress Avoid systemic Abx Discussed plan with family María Valdez MD Jan 09, 2017 13:06
--- NOTE | 2017-01-09 13:44 | PD.ONC.PN ---
Subjective Subjective Remarks Afebrile overnight. patient resting in bed in nad. wants to know when she can go home. Objective Data Date Time Temp Pulse Resp B/P Pulse Ox O2 Delivery O2 Flow Rate FiO2 01/09/17 12:00 99.2 70 17 135/59 96 01/09/17 08:00 98.3 74 15 152/69 95 01/09/17 04:00 97.7 74 18 136/72 96 01/09/17 01:02 21 01/09/17 00:00 97.8 70 16 136/67 95 01/08/17 20:00 97.4 72 20 129/72 97 01/08/17 19:31 17 01/08/17 17:17 96.6 78 18 149/73 99 01/08/17 16:00 98.4 99 16 175/79 96 01/08/17 14:33 97.8 95 16 165/85 94 01/08/17 13:50 83 18 158/91 95 01/09/17 01/09/17 01/09/17 07:00 15:00 23:00 Intake Total 100 ml Balance 100 ml Result Diagram: 01/09/17 0600 01/09/17 0600 Laboratory Results Laboratory Tests Test 01/09/17 01/09/17 06:00 08:46 White Blood Count 4.7 TH/MM3 Red Blood Count 2.44 MIL/MM3 Hemoglobin 8.2 GM/DL Hematocrit 24.0 % Mean Corpuscular Volume 98.5 FL Mean Corpuscular Hemoglobin 33.7 PG Mean Corpuscular Hemoglobin 34.2 % Concent Red Cell Distribution Width 17.9 % Platelet Count 85 TH/MM3 Mean Platelet Volume 8.0 FL Neutrophils (%) (Auto) 61.7 % Lymphocytes (%) (Auto) 21.6 % Monocytes (%) (Auto) 11.1 % Eosinophils (%) (Auto) 4.9 % Basophils (%) (Auto) 0.7 % Neutrophils # (Auto) 2.9 TH/MM3 Lymphocytes # (Auto) 1.0 TH/MM3 Monocytes # (Auto) 0.5 TH/MM3 Eosinophils # (Auto) 0.2 TH/MM3 Basophils # (Auto) 0.0 TH/MM3 CBC Comment AUTO DIFF Differential Comment AUTO DIFF CONFIRMED Platelet Estimate LOW Platelet Morphology Comment NORMAL Ovalocytes 1+ Sodium Level 142 MEQ/L Potassium Level 3.4 MEQ/L Chloride Level 110 MEQ/L Carbon Dioxide Level 23.1 MEQ/L Anion Gap 9 MEQ/L Blood Urea Nitrogen 3 MG/DL Creatinine 0.49 MG/DL Estimat Glomerular Filtration 121 ML/MIN Rate Random Glucose 83 MG/DL Calcium Level 7.0 MG/DL Protein Corrected Calcium 7.8 MG/DL Total Protein 5.6 GM/DL Prothrombin Time 13.0 SEC Prothromb Time International 1.2 RATIO Ratio Culture Results Microbiology Date/Time Procedure Status Source Growth 01/07/17 20:00 Stool Occult Blood (TAMMI) - Final Complete Stool Stool HEMOCCULT POSITIVE Administered Medications Medications (Trade) Dose Ordered Sig/Jair Route PRN Reason Start Time Stop Time Status Last Admin Dose Admin Pantoprazole Sodium/Sodium Chloride (Protonix Inj/NS Inj) 100 ml @ 10 mls/hr Q10H IV 01/05/17 15:30 01/09/17 12:47 Fluticasone Propionate (Flovent Hfa 220 Mcg Inh) 1 puff BID INH 01/05/17 21:00 01/09/17 08:48 Sodium Chloride (NS Flush) 2 ml BID IV FLUSH 01/05/17 21:00 01/09/17 08:48 Acetaminophen (Tylenol) 650 mg Q6H PRN PO PAIN SCALE 1 TO 2 01/05/17 14:30 01/06/17 10:19 Oxycodone HCl (Roxicodone) 5 mg Q4H PRN PO PAIN SCALE 3 TO 10 01/05/17 14:30 01/09/17 12:12 Chlorhexidine Gluconate (Chlorhexidine 2% Cloth) 3 pack DAILY@04 TOPICAL 01/06/17 04:00 01/10/17 04:01 01/08/17 04:00 Folic Acid (Folate) 1 mg DAILY PO 01/06/17 10:00 01/09/17 08:48 Metoprolol Tartrate (Lopressor) 25 mg BID PO 01/08/17 12:00 01/09/17 08:48 Metronidazole (Flagyl) 500 mg Q8HR PO 01/08/17 22:00 01/09/17 12:12 Olopatadine HCl (Patanol 0.1% Opth) 1 drop BID EACH EYE 01/08/17 21:00 01/09/17 08:48 Levothyroxine Sodium (Synthroid) 50 mcg DAILY@06 PO 01/09/17 06:00 01/09/17 06:01 Objective Remarks GENERAL: Elderly female supine in bed in nad. SKIN: Warm and dry. HEAD: Normocephalic. EYES: No injection or drainage. NECK: Supple, trachea midline. CARDIOVASCULAR: +S1/S2 RESPIRATORY: Breath sounds equal bilaterally. No accessory muscle use. GASTROINTESTINAL: Abdomen soft, non-tender, nondistended. EXTREMITIES: No cyanosis NEUROLOGICAL: awake and alert, normal speech. moving all extremities. Assessment/Plan Problem List: (1) Abdominal pain Status: Acute (2) Rectal bleeding Status: Acute (3) Thrombocytopenia Status: Chronic (4) Acute blood loss anemia Status: Acute (5) Chronic anticoagulation Status: Acute Assessment 81-year-old female with a hx of CAD status post CABG and aortic valve replacement, chronic thrombocytopenia, anemia and RA -n MTX presents with GIB with BRBPR: 1. Acute on chronic thrombocytopenia: - LDH/Haptoglobin WNL - Hepatitis panel negative --platelets 85K today --FS faxed to npr for follow up once discharged 2.GIB bleeding - colonoscopy/EGD on 01/08 showed esophagitis, internal and external hemorrhoids. --AC on hold until cleared by GI to resume 3. Anemia--seems to be chronic-- --mild iron deficiency 4. Rheumatoid arthritis - MTX on hold 5. C.diff infection - on Flagyl Attending Statement The exam, history, and the medical decision-making described in the above note were completed with the assistance of the mid-level provider. I reviewed and agree with the findings presented. I attest that I had a [id number] encounter with the patient on the same day, and personally performed and documented my assessment and findings in the medical record. Start heparin GTT, monitor for drop in Hb, if stable --will start Coumadin. daily coags d/w patient d/w Dona Oconnell Jan 09, 2017 13:44 Chetan Reynoso MD Jan 10, 2017 00:10
--- NOTE | 2017-01-09 17:18 | HHI.GIFU ---
Subjective Remarks Pt resting in bed, chatting on phone. No pain, n/v, bleeding. Objective Vitals I&O Vital Signs Date Time Temp Pulse Resp B/P Pulse Ox O2 Delivery O2 Flow Rate FiO2 01/09/17 16:00 98.9 72 16 161/74 97 01/09/17 12:20 98 01/09/17 12:00 99.2 70 17 135/59 96 01/09/17 08:00 98.3 74 15 152/69 95 01/09/17 04:00 97.7 74 18 136/72 96 01/09/17 01:02 21 01/09/17 00:00 97.8 70 16 136/67 95 01/08/17 20:00 97.4 72 20 129/72 97 01/08/17 19:31 17 01/08/17 17:17 96.6 78 18 149/73 99 I/O 01/08/17 01/08/17 01/08/17 01/09/17 01/09/17 01/09/17 07:00 15:00 23:00 07:00 15:00 23:00 Intake Total 386 ml 428 ml 100 ml 200 ml Output Total 1400 ml 550 ml Balance -1014 ml -550 ml 428 ml 100 ml 200 ml Intake Oral 240 ml 120 ml IV Total 146 ml 332 ml 100 ml 80 ml Other 96 ml Output Urine Total 400 ml 550 ml Stool Total 1000 ml Bladder Scan Volume Amount 33 ml # Voids 2 2 # Bowel Movements 1 0 Laboratory Laboratory Tests Test 01/09/17 01/09/17 06:00 08:46 White Blood Count 4.7 Red Blood Count 2.44 Hemoglobin 8.2 Hematocrit 24.0 Mean Corpuscular Volume 98.5 Mean Corpuscular Hemoglobin 33.7 Mean Corpuscular Hemoglobin 34.2 Concent Red Cell Distribution Width 17.9 Platelet Count 85 Mean Platelet Volume 8.0 Neutrophils (%) (Auto) 61.7 Lymphocytes (%) (Auto) 21.6 Monocytes (%) (Auto) 11.1 Eosinophils (%) (Auto) 4.9 Basophils (%) (Auto) 0.7 Neutrophils # (Auto) 2.9 Lymphocytes # (Auto) 1.0 Monocytes # (Auto) 0.5 Eosinophils # (Auto) 0.2 Basophils # (Auto) 0.0 CBC Comment AUTO DIFF Differential Comment AUTO DIFF CONFIRMED Platelet Estimate LOW Platelet Morphology Comment NORMAL Ovalocytes 1+ Sodium Level 142 Potassium Level 3.4 Chloride Level 110 Carbon Dioxide Level 23.1 Anion Gap 9 Blood Urea Nitrogen 3 Creatinine 0.49 Estimat Glomerular Filtration 121 Rate Random Glucose 83 Calcium Level 7.0 Protein Corrected Calcium 7.8 Total Protein 5.6 Prothrombin Time 13.0 Prothromb Time International 1.2 Ratio Date/Time Procedure Status Source Growth 01/07/17 20:00 Stool Occult Blood (TAMMI) - Final Complete Stool Stool HEMOCCULT POSITIVE Imaging Last Impressions Abdomen/Pelvis CT 01/05/17 0000 Signed Impressions: Service Date/Time: Thursday, January 05, 2017 17:54 - CONCLUSION: Previous aortoiliac stent graft placement. Diffuse atherosclerotic plaque. No acute complication demonstrated. Braydon Macias MD Physical Exam HEENT: PERRL; normocephalic; atraumatic; no jaundice. CHEST: rhonchi CARDIAC: irr HR ABDOMEN: Soft, nondistended, nontender; no hepatosplenomegaly; bowel sounds are present in all four quadrants. EXTREMITIES: No clubbing, cyanosis, or edema. SKIN: Normal; no rash; no jaundice. AGENT TELEGRAPHER: No focal deficits; alert and oriented times three. Assessment and Plan Plan ASSESSMENT - rectal bleeding, maroon stool - hx constipation, large BM associated with bleeding. Maroon stool per RN subsequently but no bleeding in 2d. - anemia - 9.8 on admission and dropped to 7,.4 few days ago. Today 8.2 and stable. d/w primary starting anticoagulation, heparin gtt - thrombocytopenia - per oncology - hx AF, CAD PLAN - okay to restart anticoag - repeat colonoscopy 10y - monitor HH - transfuse as needed - await pathology - PPI - probiotics - fiber - okay to d/c from GI standpoint, d/w primary This pt seen by myself and Dr Feldman and this note is written on her behalf Shelley Encarnacion Jan 09, 2017 17:18
[2017-01-09] MEDS ORDERED: HEPARIN-D5W INJ 250 ML IV SCH (18:00)
--- NOTE | 2017-01-09 18:06 | HHI.PR ---
Subjective Remarks Pt feels well. denies any CP/sob/n/v. no reported rectal bleeding discussed w RN, no concerns at this time except that pt was asking for a stool softener Objective Vitals Vital Signs Date Time Temp Pulse Resp B/P Pulse Ox O2 Delivery O2 Flow Rate FiO2 01/09/17 16:00 98.9 72 16 161/74 97 01/09/17 12:20 98 01/09/17 12:00 99.2 70 17 135/59 96 01/09/17 08:00 98.3 74 15 152/69 95 01/09/17 04:00 97.7 74 18 136/72 96 01/09/17 01:02 21 01/09/17 00:00 97.8 70 16 136/67 95 01/08/17 20:00 97.4 72 20 129/72 97 01/08/17 19:31 17 I/O 01/08/17 01/08/17 01/08/17 01/09/17 01/09/17 01/09/17 06:59 14:59 22:59 06:59 14:59 22:59 Intake Total 386 ml 428 ml 100 ml 200 ml Output Total 1400 ml 550 ml Balance -1014 ml -550 ml 428 ml 100 ml 200 ml Intake Oral 240 ml 120 ml IV Total 146 ml 332 ml 100 ml 80 ml Other 96 ml Output Urine Total 400 ml 550 ml Stool Total 1000 ml Bladder Scan Volume Amount 33 ml # Voids 2 2 # Bowel Movements 1 0 Result Diagram: 01/09/17 0600 01/09/17 0600 Imaging Last Impressions Abdomen/Pelvis CT 01/05/17 0000 Signed Impressions: Service Date/Time: Thursday, January 05, 2017 17:54 - CONCLUSION: Previous aortoiliac stent graft placement. Diffuse atherosclerotic plaque. No acute complication demonstrated. Braydon Macias MD Objective Remarks General: Elderly female, laying in bed comfortably EYES: EOMI Heart: Irregularly irregular, No murmur. Lungs: Clear to auscultation bilaterally. No wheezes. Breathing is nonlabored. Abdomen: Soft, nontender, nondistended. Extremities: No lower extremity edema. moves extremities Psych: Alert and oriented. Procedures None A/P Problem List: (1) Rectal bleeding ICD Code: K62.5 Status: Acute (2) History of chronic atrial fibrillation ICD Code: Z86.79 Status: Chronic (3) History of Clostridium difficile colitis ICD Code: Z87.19 Status: Acute (4) Hypertension ICD Code: I10 Status: Chronic (5) GERD (gastroesophageal reflux disease) ICD Code: K21.9 Status: Chronic (6) Acute blood loss anemia ICD Code: D62 Status: Acute (7) Thrombocytopenia ICD Code: D69.6 Status: Chronic Assessment and Plan 1. Bright red blood per rectum, acute blood loss anemia: s/p 1 unit PRBCs. No reported blood in stool overnight. Appreciate colorectal surgery recommendations. Patient denies taking NSAIDs or drinking alcohol. Denies history of peptic ulcer disease. EGD showed esophagitis/hietal hernia and colonoscopy showed diverticulosis and internal/external hemorrhoids 2. C. difficile: on Flagyl. ID would pt to complete 14 days. appreciate recs 3. Thrombocytopenia: Likely secondary to methotrexate therapy. Monitor labs. Transfuse platelets as needed in the setting of GI bleed. Hematology following. Patient follows with Dr. Salgado as outpatient. LDH/haptoglobin wnl. hepatitis panel pending. 4. Atrial fibrillation, aortic valve replacement: Patient has been on Coumadin. Vitamin K was given upon admission. Anticoagulation was discontinued secondary to GI bleed. however pt has been cleared by GI to resume anticoagulation. Per hematology, recommendations are to start w heparin gtt and monitor Hb if doing well will transition to home anticoagulation. will repeat H&H in am and monitor for acute bleed. heparin gtt orders in place. 5. Rheumatoid arthritis, osteoarthritis: Methotrexate discontinued. Continue pain control as needed. Continue folic acid. 6. Asthma: Continue Flovent. Nebulizer treatments as needed. 7. Hypertension: Blood pressure medications on hold. Vasotec available as needed. 8. GI prophylaxis: On Protonix drip. 9. DVT prophylaxis: SCDs. heparin gtt Discharge Planning heparin gtt started. monitor H&H closely or any acute bleed. hold heparin gtt if bleeding occurs. anticipate d/c home in 1-2 days once cleared by GI and hematology Ines Chamorro MD Jan 09, 2017 18:06
[2017-01-09 18:23] LABS: HEMATOCRIT 26.1 % (35.0-46.0); MEAN CELL VOLUME 98.3 FL (80.0-100.0); MEAN CORPUSCULAR HEMOGLOBIN 33.6 PG (27.0-34.0); MEAN CORPUSCULAR HGB CONC 34.2 % (32.0-36.0); PLATELET COUNT 95 TH/MM3 (150-450); RED BLOOD COUNT 2.66 MIL/MM3 (4.00-5.30); RED CELL DISTRIBUTION WIDTH 18.6 % (11.6-17.2); WHITE BLOOD COUNT 4.9 TH/MM3 (4.0-11.0)
[2017-01-09 18:27] LABS: REVIEW FLAG AUTO DIFF
[2017-01-09] MEDS ORDERED: POTASSIUM CHLORIDE 20 MEQ CONTROLLED RELEASE TAB PO ONE (18:30)
--- NOTE | 2017-01-09 18:31 | HHI.PR ---
Subjective Remarks C/R Surg NO further bleeding for days, Hgb stable heidi PO on flagyl PO no complaints Objective - Vital Signs Date Time Temp Pulse Resp B/P Pulse Ox O2 Delivery O2 Flow Rate FiO2 01/09/17 16:00 98.9 72 16 161/74 97 01/09/17 01:02 21 01/05/17 18:10 Room Air Result Diagram: 01/09/17 1808 01/09/17 0600 Objective Remarks PE alert Abd - soft, non-tender, no tympany, no BRB A/P Assessment and Plan Imp: stable dc ivf reg diet dc plans - ? need for IV heparin, maybe just subcut Abraham Butler MD Jan 09, 2017 18:31
[2017-01-09 18:41] LABS: APTT (PATIENT) 27.1 SEC (24.3-30.1); INTERNATIONAL NORMALIZED RATIO 1.2 RATIO; PROTHROMBIN TIME - PATIENT 13.1 SEC (9.8-11.6)
[2017-01-10] MEDS ORDERED: HEPARIN-D5W INJ 250 ML IV SCH (00:15)
[2017-01-10 00:27] VITALS: BP 135/73; PULSE 78; RESP 18; TEMP 96.4; O2SAT 97
[2017-01-10 01:34] LABS: APTT (PATIENT) 99.4 SEC (24.3-30.1)
[2017-01-10] MEDS: CHLORHEXIDINE GLUCONATE 2 % 1 PACK (2 CLOTHS)(taper/protocol) TOPICAL SCH (04:00)
[2017-01-10 04:14] LABS: HEMATOCRIT 26.7 % (35.0-46.0)
[2017-01-10 04:43] LABS: REVIEW FLAG FINAL
[2017-01-10 04:58] LABS: BICARBONATE 25.7 MEQ/L (21.0-32.0); POTASSIUM 3.9 MEQ/L (3.5-5.1)
[2017-01-10 05:11] LABS: CALCIUM-PROTEIN CORRECTED 7.7 MG/DL (8.5-10.1)
[2017-01-10] MEDS: LEVOTHYROXINE SODIUM 50 MCG TAB PO SCH (06:08)
[2017-01-10] MEDS: metroNIDAZOLE 500 MG TAB PO SCH ×2 (06:08→14:00)
[2017-01-10] MEDS: PANTOPRAZOLE INJ 80 MG in SODIUM CHLORIDE 0.9% INJ 100 ML IV SCH ×2 (06:09→15:30)
[2017-01-10 06:24] LABS: APTT (PATIENT) 64.6 SEC (24.3-30.1)
[2017-01-10 06:42] VITALS: O2SAT 97
[2017-01-10 08:00] VITALS: BP 173/81; PULSE 73; RESP 18; TEMP 95.8; O2SAT 97
[2017-01-10] MEDS: SODIUM CHLORIDE 0.9% FLUSH 10 ML FLUSH IV FLUSH SCH (09:00)
[2017-01-10] MEDS: OLOPATADINE HCL 0.1% OPHT SOLN 5 ML BTL EACH EYE SCH (09:00)
--- NOTE | 2017-01-10 09:42 | HHI.PR ---
Subjective Remarks Patient feeling well. No new rectal bleeding episodes. Denies any chest pain, shortness of breath, nausea or vomiting Objective Vitals Vital Signs Date Time Temp Pulse Resp B/P Pulse Ox O2 Delivery O2 Flow Rate FiO2 01/10/17 08:00 95.8 73 18 173/81 97 01/10/17 06:42 97 21 01/10/17 00:27 96.4 78 18 135/73 97 01/09/17 20:45 96.7 82 18 139/80 97 01/09/17 16:00 98.9 72 16 161/74 97 01/09/17 12:20 98 01/09/17 12:00 99.2 70 17 135/59 96 I/O 01/09/17 01/09/17 01/09/17 01/10/17 01/10/17 01/10/17 07:00 15:00 23:00 07:00 15:00 23:00 Intake Total 100 ml 200 ml 636 ml 513 ml Balance 100 ml 200 ml 636 ml 513 ml Intake Oral 120 ml 480 ml 280 ml IV Total 100 ml 80 ml 156 ml 233 ml Bladder Scan Volume Amount 33 ml # Voids 2 4 8 # Bowel Movements 0 0 Result Diagram: 01/10/17 0401 01/10/17 0401 Imaging Last Impressions Abdomen/Pelvis CT 01/05/17 0000 Signed Impressions: Service Date/Time: Thursday, January 05, 2017 17:54 - CONCLUSION: Previous aortoiliac stent graft placement. Diffuse atherosclerotic plaque. No acute complication demonstrated. Braydon Macias MD Objective Remarks General: Elderly female, laying in bed comfortably EYES: EOMI Heart: Irregularly irregular, No murmur. Lungs: Clear to auscultation bilaterally. No wheezes. Breathing is nonlabored. Abdomen: Soft, nontender, nondistended. Extremities: No lower extremity edema. moves extremities Psych: Alert and oriented. Procedures None A/P Problem List: (1) Rectal bleeding ICD Code: K62.5 Status: Acute (2) History of chronic atrial fibrillation ICD Code: Z86.79 Status: Chronic (3) History of Clostridium difficile colitis ICD Code: Z87.19 Status: Acute (4) Hypertension ICD Code: I10 Status: Chronic (5) GERD (gastroesophageal reflux disease) ICD Code: K21.9 Status: Chronic (6) Acute blood loss anemia ICD Code: D62 Status: Acute (7) Thrombocytopenia ICD Code: D69.6 Status: Chronic Assessment and Plan 1. Bright red blood per rectum, acute blood loss anemia: s/p 1 unit PRBCs. No reported blood in stool overnight. Appreciate colorectal surgery recommendations. Patient denies taking NSAIDs or drinking alcohol. Denies history of peptic ulcer disease. EGD showed esophagitis/hietal hernia and colonoscopy showed diverticulosis and internal/external hemorrhoids 2. C. difficile: on Flagyl. ID would pt to complete 14 days. appreciate recs 3. Thrombocytopenia: Likely secondary to methotrexate therapy. Monitor labs. Transfuse platelets as needed in the setting of GI bleed. Hematology following. Patient follows with Dr. Salgado as outpatient. LDH/haptoglobin wnl. hepatitis panel pending. 4. Atrial fibrillation, aortic valve replacement: Patient has been on Coumadin. Vitamin K was given upon admission. Anticoagulation was discontinued secondary to GI bleed. however pt has been cleared by GI to resume anticoagulation. Per hematology, patient was started on heparin gtt yesterday evening and hemoglobin has remained stable at 9.2. No new episodes of bleeding. Awaiting final recommendations from hematology. 5. Rheumatoid arthritis, osteoarthritis: Methotrexate discontinued. Continue pain control as needed. Continue folic acid. 6. Asthma: Continue Flovent. Nebulizer treatments as needed. 7. Hypertension: Blood pressure medications on hold. Vasotec available as needed. 8. GI prophylaxis: On Protonix drip. 9. DVT prophylaxis: SCDs. heparin gtt Discharge Planning currently on heparin gtt. discuss w hematology to see if ok to resume home anticoag. Awaiting final recommendations from hematology and GI Ines Chamorro MD Jan 10, 2017 09:42
[2017-01-10] MEDS: FLUTICASONE PROPIONATE 220 MCG/ACT 12 GM INHALER INH SCH (10:18)
[2017-01-10] MEDS: FOLIC ACID 1 MG TAB PO SCH (10:18)
[2017-01-10] MEDS: METOPROLOL TARTRATE 25 MG TAB PO SCH (10:18)
[2017-01-10 12:00] VITALS: BP 155/69; PULSE 72; RESP 17; TEMP 97; O2SAT 97
[2017-01-10 12:02] LABS: APTT (PATIENT) 79.4 SEC (24.3-30.1)
[2017-01-10] MEDS ORDERED: METR-1 PO (12:02)
--- NOTE | 2017-01-10 12:04 | HHI.DS ---
Discharge Summary Admission Date Jan 05, 2017 at 13:48 Admitting Diagnosis rectal bleed/elevated INR (1) Rectal bleeding ICD Code: K62.5 (2) History of chronic atrial fibrillation ICD Code: Z86.79 (3) History of Clostridium difficile colitis ICD Code: Z87.19 (4) Hypertension ICD Code: I10 (5) GERD (gastroesophageal reflux disease) ICD Code: K21.9 (6) Acute blood loss anemia ICD Code: D62 (7) Thrombocytopenia ICD Code: D69.6 Procedures None Brief History - From Admission The patient is an 81-year-old female with a past medical history of CAD status post CABG and aortic valve replacement who is presenting to the hospital with bright red blood per rectum. The patient said that as a period for about 4 days and received to read pills which resulted in a large bowel movement the size of the potato. Shortly thereafter she started having bloody stools continuously. She said she has been bleeding for about 2 days at her [facility] and was finally brought to the hospital today. She also mentions that she had methotrexate reintroduced to her medical regimen on Sunday, which is the day that her bleeding started. She said she has felt dizzy a couple of days ago but currently does not have any dizziness to complain about. She says her belly hurts her at times. She says she is currently incapable of having a bowel movement and simply produces blood from the rectum. She mentions she has never had a colonoscopy before. She also mentions that she had C. difficile for 2 years straight. The patient denies taking ibuprofen or Aleve. She does not drink alcohol anymore. CBC/BMP: 01/10/17 0401 01/10/17 0401 Significant Findings Laboratory Tests Test 01/07/17 01/08/17 01/09/17 01/09/17 15:14 12:07 06:00 08:46 Total Iron Binding Capacity 204 MCG/DL (250-450) Transferrin 146 MG/DL (213-418) Vitamin B12 Level 1497 PG/ML (193-986) Red Blood Count 2.56 MIL/MM3 2.44 MIL/MM3 (4.00-5.30) (4.00-5.30) Hemoglobin 8.3 GM/DL 8.2 GM/DL (11.6-15.3) (11.6-15.3) Hematocrit 25.4 % 24.0 % (35.0-46.0) (35.0-46.0) Red Cell Distribution Width 17.8 % 17.9 % (11.6-17.2) (11.6-17.2) Platelet Count 90 TH/MM3 85 TH/MM3 (150-450) (150-450) Monocytes (%) (Auto) 9.6 % (0.0-8.0) 11.1 % (0.0-8.0) Platelet Estimate LOW (NORMAL) LOW (NORMAL) Ovalocytes 1+ (NORMAL) 1+ (NORMAL) Potassium Level 3.2 MEQ/L 3.4 MEQ/L (3.5-5.1) (3.5-5.1) Chloride Level 109 MEQ/L 110 MEQ/L (98-107) (98-107) Blood Urea Nitrogen 3 MG/DL (7-18) 3 MG/DL (7-18) Creatinine 0.43 MG/DL 0.49 MG/DL (0.50-1.00) (0.50-1.00) Calcium Level 7.2 MG/DL 7.0 MG/DL (8.5-10.1) (8.5-10.1) Protein Corrected Calcium 7.9 MG/DL 7.8 MG/DL (8.5-10.1) (8.5-10.1) Total Protein 5.8 GM/DL 5.6 GM/DL (6.4-8.2) (6.4-8.2) Eosinophils (%) (Auto) 4.9 % (0.0-4.0) Prothrombin Time 13.0 SEC (9.8-11.6) Test 01/09/17 01/10/17 01/10/17 18:08 00:34 04:01 Red Blood Count 2.66 MIL/MM3 (4.00-5.30) Hemoglobin 8.9 GM/DL 9.2 GM/DL (11.6-15.3) (11.6-15.3) Hematocrit 26.1 % 26.7 % (35.0-46.0) (35.0-46.0) Red Cell Distribution Width 18.6 % (11.6-17.2) Platelet Count 95 TH/MM3 (150-450) Prothrombin Time 13.1 SEC (9.8-11.6) Activated Partial 99.4 SEC 64.6 SEC Thromboplast Time (24.3-30.1) (24.3-30.1) Chloride Level 108 MEQ/L (98-107) Blood Urea Nitrogen 4 MG/DL (7-18) Calcium Level 7.3 MG/DL (8.5-10.1) Protein Corrected Calcium 7.7 MG/DL (8.5-10.1) Total Protein 6.3 GM/DL (6.4-8.2) PE at Discharge PE alert Abd - soft, non-tender, no tympany, no BRB Pt Condition on Discharge: Stable Discharge Disposition: Discharge to SNF Discharge Time: > 30 minutes Discharge Instructions DIET: Follow Instructions for: Heart Healthy Diet Activities you can perform: Regular-No Restrictions Follow up Referrals: Gastroenterology - 2 Weeks Oncology - 1 Week with Chetan Reynoso MD New Medications: Metronidazole (Flagyl) 500 Mg Tab 500 MG PO Q8HR Days 12 TAB Continued Medications: Albuterol Neb (Albuterol Neb) 2.5 Mg/3 Ml Neb 2.5 MG NEB Q6HR PRN SHORTNESS OF BREATH Days 7 Ref 0 NEBULE Alendronate (Fosamax) 70 Mg Tab 70 MG PO Q7D Osteoporosis Treatment #4 Ref 0 TAB Calcium Carbonate (Calcium Carbonate) 1,500 Mg Tab 1500 MG PO BID 1,500 mg calcium carbonate (600 mg elemental calcium) Calcium Supplement Ref 0 TAB Cyanocobalamin Odt (B-12 Dots) 500 Mcg Tab 500 MCG SL DAILY Nutritional Supplement #1 Ref 0 BOTTLE Fluticasone 12 GM Inh (Flovent Hfa 12 GM Inh) 220 Mcg/Act Inh 1 PUFF INH BID Use daily at the same time. Asthma Management #1 Ref 0 INHALER Folic Acid (Folic Acid) 400 Mcg Tab 1 MG PO DAILY Nutritional Supplement Ref 0 TAB Furosemide (Furosemide) 40 Mg Tab 40 MG PO BID #60 Ref 0 TAB Gabapentin (Gabapentin) 100 Mg Cap 100 MG PO TID #90 Ref 0 CAP Lactobacillus Acidophilus (Acidophilus/l-Sporogenes) 1 Tab Tab 1 TAB PO Q12HR probiotic Days 7 Ref 0 TAB Levothyroxine (Levothyroxine) 50 Mcg Tab 50 MCG PO DAILY Thyroid #30 Ref 0 TAB Meclizine (Meclizine) 25 Mg Tab 25 MG PO QID PRN VERTIGO Ref 0 TAB Methotrexate (Antirheumatic) (Rasuvo) 20 Mg/0.4 Ml Inj Metoprolol Tartrate (Metoprolol Tartrate) 25 Mg Tab 25 MG PO BID #60 Ref 0 TAB Omeprazole (Omeprazole) 20 Mg Tab 20 MG PO DAILY #30 Ref 0 TAB Potassium Chloride ER (Potassium Chloride ER) 20 Meq Tab 20 MEQ PO TID Electrolyte Replacement #30 Ref 0 TAB Pravastatin (Pravastatin) 20 Mg Tab 20 MG PO HS Cholesterol Management #30 Ref 0 TAB Warfarin (Coumadin) 2 Mg Tab 2 MG PO DAILY Prevent Blood Clot #30 Ref 0 TAB Ines Chamorro MD Jan 10, 2017 12:04
[2017-01-10] MEDS ORDERED: diphenhydrAMINE HCL ELIXIR 12.5 MG/5 ML CUP PO ONE (15:30)
[2017-01-10] MEDS ORDERED: WARFARIN SOD 2 MG TAB PO SCH (15:30)
[2017-01-10] MEDS ORDERED: DOCUSATE SODIUM 50 MG/SENNA 8.6 MG TAB PO PRN (16:00)
[2017-01-10] MEDS ORDERED: MAGNESIUM HYDROXIDE SUSP 30 ML CUP PO PRN (16:00)
== END 2017-01-10 16:15 | DRG 378 ==
LOC: NEPE 10:43 → NEDA 13:48 → HIME 18:40 → N07B 01-08 14:12
PROVIDERS: ADMIT Hospitalist; ATTEND Hospitalist
PROC: 30233N1 Transfusion of Nonautologous Red Blood Cells into Peripheral Vein, Percutaneous Approach (ICD-10-PCS; principal; 2017-01-05)
PROC: 0DB38ZX Excision of Lower Esophagus, Via Natural or Artificial Opening Endoscopic, Diagnostic (ICD-10-PCS; 2017-01-08)
PROC: 0DJD8ZZ Inspection of Lower Intestinal Tract, Via Natural or Artificial Opening Endoscopic (ICD-10-PCS; 2017-01-08 12:54)
DX: K62.5 Hemorrhage of anus and rectum (principal); D62 Acute posthemorrhagic anemia; D69.59 Other secondary thrombocytopenia; I48.2 Chronic atrial fibrillation; G62.9 Polyneuropathy, unspecified; J44.9 Chronic obstructive pulmonary disease, unspecified; D50.0 Iron deficiency anemia secondary to blood loss (chronic); I10 Essential (primary) hypertension; E03.9 Hypothyroidism, unspecified; D53.9 Nutritional anemia, unspecified; G89.4 Chronic pain syndrome; M06.9 Rheumatoid arthritis, unspecified; I25.10 Atherosclerotic heart disease of native coronary artery without angina pectoris; K21.0 Gastro-esophageal reflux disease with esophagitis; Z66 Do not resuscitate; K59.00 Constipation, unspecified; M81.0 Age-related osteoporosis without current pathological fracture; R79.1 Abnormal coagulation profile; K44.9 Diaphragmatic hernia without obstruction or gangrene; K57.30 Diverticulosis of large intestine without perforation or abscess without bleeding; K64.8 Other hemorrhoids; K64.4 Residual hemorrhoidal skin tags; Z95.1 Presence of aortocoronary bypass graft; Z87.19 Personal history of other diseases of the digestive system; Z79.01 Long term (current) use of anticoagulants; Z98.1 Arthrodesis status; Z95.2 Presence of prosthetic heart valve; Z87.891 Personal history of nicotine dependence
CPT/HCPCS: 36430; 74174; 76937; 80048; 80053; 82272; 82607; 82747; 83010; 83540; 83550; 83615; 83735; 84155; 84466; 85014; 85018; 85025; 85027; 85610; 85730; 86705; 86803; 86850; 86900; 86901; 86920; 87340; 87493; 87641; 88305; 94664; 96374; C9113; J1644; J2370; J3480; J7030; P9016; Q9967